=== PATIENT | male | born 1985 | race African-American/Black ===

== ENCOUNTER 2016-10-22 15:44 | Emergency (ER) | payer MEDICAID ==
[2016-10-22 15:57] VITALS: BP 139/95
[2016-10-22] MEDS ORDERED: IPRATROPIUM/ALBUTEROL 0.5-2.5 MG/3 ML AMPUL NEB ONE (16:25)
[2016-10-22] MEDS ORDERED: PREDNISONE 20 MG TABLET PO ONE (16:25)
[2016-10-22] MEDS ORDERED: ALBUTEROL SULFATE 0.083% NEB 2.5 MG/3 ML AMPUL NEB ONE (16:25)
--- NOTE | 2016-10-22 16:26 | ER Document Report ---
ED Medical Screen (RME) - General Stated Complaint: TOOTH PAIN Time seen by provider: 16:22 Mode of Arrival: Ambulatory Information source: Patient Notes: 31-year-old male with a history of asthma/COPD started wheezing 2 nights ago. His pump was not working. Has a nebulizer but no medicine for it. No fever. Inspiratory and expiratory wheezing bilaterally. Pulse ox is 94% in triage. Also complaining of right lower toothache. I have greeted and performed a rapid initial assessment of this patient. A comprehensive ED assessment, evaluation of the patient, analysis of test results , and completion of the medical decision making process will be conducted by additional ED providers. TRAVEL OUTSIDE OF THE [place] IN LAST 30 DAYS: No - Related Data Allergies/Adverse Reactions: levofloxacin [From Levaquin] Allergy (Severe, Verified 04/10/13 17:43) Past Medical History - Past Medical History Cardiac Medical History: Denies: Hx Atrial Fibrillation, Hx Congestive Heart Failure, Hx Coronary Artery Disease, Hx DVT, Hx Heart Attack, Hx Hypercholesterolemia, Hx Hypertension, Hx Peripheral Vascular Disease, Hx Pulmonary Embolism, Hx Heart Murmur Pulmonary Medical History: Reports: Hx Asthma, Hx COPD Neurological Medical History: Denies: Hx Migraine, Hx Seizures Endocrine Medical History: Denies: Hx Diabetes Mellitus Type 1, Hx Diabetes Mellitus Type 2, Hx Hyperthyroidism, Hx Hypothyroidism Renal/ Medical History: Denies: Hx End Stage Renal Disease Malignancy Medical History: Denies Hx Bone Cancer, Denies Hx Brain Cancer, Denies Hx Colorectal Cancer, Denies Hx Leukemia, Denies Hx Liver Cancer, Denies Hx Lung Cancer, Denies Hx Lymphoma, Denies Hx Pancreatic Cancer, Denies Hx Renal (Kidney) Cancer, Denies Hx Skin Cancer GI Medical History: Denies: Hx Cirrhosis, Hx Crohn's Disease, Hx Diverticulitis , Hx Gastroesophageal Reflux Disease, Hx Hepatitis, Hx Hiatal Hernia, Hx Ulcerative Colitis Musculoskeltal Medical History: Denies Hx Arthritis, Denies Hx Fibromyalgia, Denies Hx Gout Skin Medical History: Denies Hx Eczema, Denies Hx Psoriasis Psychiatric Medical History: Reports: Hx Depression Traumatic Medical History: Denies: Hx Gunshot Wound, Hx Pneumothorax, Hx Traumatic Brain Injury Infectious Medical History: Denies: Hx C-Diff, Hx Hepatitis, Hx HIV, Hx MRSA, Hx VRE - Immunizations Hx Diphtheria, Pertussis, Tetanus Vaccination: Yes Physical Exam - Vital signs Vitals: Temp Pulse Resp BP Pulse Ox 98.5 F 83 14 139/95 H 94 10/22/16 15:55 10/22/16 15:55 10/22/16 15:55 10/22/16 15:55 10/22/16 15:55 Course - Vital Signs Vital signs: Temp Pulse Resp BP Pulse Ox 98.5 F 83 14 139/95 H 94 10/22/16 15:55 10/22/16 15:55 10/22/16 15:55 10/22/16 15:55 10/22/16 15:55
--- NOTE | 2016-10-22 18:05 | ER Document Report ---
ED General - General Chief Complaint: Asthma Exacerbation Stated Complaint: TOOTH PAIN Time seen by provider: 18:00 Mode of Arrival: Ambulatory Information source: Patient Notes: 21-year-old male with one-week history of worsening wheezing and occasional productive cough of asthma and says this feels similar says he has no medicines at home to use for currently. He also reports that he had a right lower tooth break off 3 days ago and is having pain in that area as well. He denies fever, chills, nausea, vomiting, earache, sore throat, chest pain, abdominal pain, or back pain. Physical Exam: General: Alert, appears well. HEENT: Normocephalic. Atraumatic. PERRLA. Extraocular movements intact. Oropharynx with moist mucous membranes. Multiple fractured teeth. Tooth in question is a molar and right lower jaw which is fractured off at the gumline. Appears to been recent bleeding and there is mild soft tissue swelling in the area. He has no Stridor or hoarseness or drooling. Neck: Supple. Non-tender. No adenopathy no nuchal rigidity Respiratory: No respiratory distress. Good aeration with faint wheezes bilaterally no accessory muscle use Cardiovascular: Regular rate and rhythm. Abdominal: Normal Inspection. Soft, non-tender. No distension. Normal Bowel Sounds. Back: Non-tender. No deformity or step off. Extremities: Moves all four extremities. Upper extremities: Normal inspection. Non-tender. Normal color. Normal ROM. Normal temperature. Lower extremities: Normal inspection. Non-tender. No edema. Normal color. Normal ROM. Normal temperature. Neurological: Speech clear mentation normal Psychological: Normal affect. Normal Mood. Skin: Warm. Dry. Normal color. TRAVEL OUTSIDE OF THE [place] IN LAST 30 DAYS: No - Related Data Allergies/Adverse Reactions: levofloxacin [From Levaquin] Allergy (Severe, Verified 04/10/13 17:43) Past Medical History - General Information source: Patient - Social History Smoking Status: Never Smoker Family History: COPD Patient has suicidal ideation: No Patient has homicidal ideation: No - Past Medical History Cardiac Medical History: Denies: Hx Atrial Fibrillation, Hx Congestive Heart Failure, Hx Coronary Artery Disease, Hx DVT, Hx Heart Attack, Hx Hypercholesterolemia, Hx Hypertension, Hx Peripheral Vascular Disease, Hx Pulmonary Embolism, Hx Heart Murmur Pulmonary Medical History: Reports: Hx Asthma, Hx COPD Neurological Medical History: Denies: Hx Migraine, Hx Seizures Endocrine Medical History: Denies: Hx Diabetes Mellitus Type 1, Hx Diabetes Mellitus Type 2, Hx Hyperthyroidism, Hx Hypothyroidism Renal/ Medical History: Denies: Hx End Stage Renal Disease, Hx Peritoneal Dialysis Malignancy Medical History: Denies Hx Bone Cancer, Denies Hx Brain Cancer, Denies Hx Colorectal Cancer, Denies Hx Leukemia, Denies Hx Liver Cancer, Denies Hx Lung Cancer, Denies Hx Lymphoma, Denies Hx Pancreatic Cancer, Denies Hx Renal (Kidney) Cancer, Denies Hx Skin Cancer GI Medical History: Denies: Hx Cirrhosis, Hx Crohn's Disease, Hx Diverticulitis , Hx Gastroesophageal Reflux Disease, Hx Hepatitis, Hx Hiatal Hernia, Hx Ulcerative Colitis Musculoskeltal Medical History: Denies Hx Arthritis, Denies Hx Fibromyalgia, Denies Hx Gout Skin Medical History: Denies Hx Eczema, Denies Hx Psoriasis Psychiatric Medical History: Reports: Hx Depression Traumatic Medical History: Denies: Hx Gunshot Wound, Hx Pneumothorax, Hx Traumatic Brain Injury Infectious Medical History: Denies: Hx C-Diff, Hx Hepatitis, Hx HIV, Hx MRSA, Hx VRE - Immunizations Hx Diphtheria, Pertussis, Tetanus Vaccination: Yes Review of Systems - Review of Systems Constitutional: denies: Chills, Fever EENT: denies: Ear pain, Throat pain Cardiovascular: denies: Chest pain Respiratory: Cough, Wheezing Gastrointestinal: denies: Abdominal pain, Nausea, Vomiting Genitourinary: denies: Burning, Dysuria Musculoskeletal: denies: Back pain Skin: denies: Rash Neurological/Psychological: denies: Weakness, Numbness Physical Exam - Vital signs Vitals: Temp Pulse Resp BP Pulse Ox 98.5 F 83 14 139/95 H 94 10/22/16 15:55 10/22/16 15:55 10/22/16 15:55 10/22/16 15:55 10/22/16 15:55 Course - Re-evaluation Re-evalutation: 10/22/16 18:03 Patient reports improved aeration after nebulizer treatments. We discharged with prescription for albuterol inhaler and steroid Dosepak. He reports he does have local urgent care to follow-up with. Patient we prescribe antibiotics and pain medication for fractured tooth instructed follow with local dentist as soon as possible - Vital Signs Vital signs: Temp Pulse Resp BP Pulse Ox 98.5 F 83 14 139/95 H 94 10/22/16 15:55 10/22/16 15:55 10/22/16 15:55 10/22/16 15:55 10/22/16 15:55 Discharge - Discharge Clinical Impression: Toothache Acute asthma exacerbation Qualifiers: Asthma severity: unspecified severity Qualified Code(s): J45.901 - Unspecified asthma with (acute) exacerbation Condition: Stable Disposition: HOME, SELF-CARE Instructions: Asthma ([facility]), Toothache ([facility]) Prescriptions: Albuterol Sulfate [Proair HFA Inhalation Aerosol 8.5 gm MDI] 2 puff IH Q4H PRN # 1 mdi PRN Reason: Amoxicillin 1 tab PO TID #30 tab Methylprednisolone [Medrol Dosepack (4 mg/Tab) 21 Tab/Dosepak] 4 mg PO ASDIR PRN #21 tab.ds.pk PRN Reason: Tramadol HCl 50 mg PO BID #20 tablet Referrals: [facility] [Provider Group] - Follow up in 1 week [facility] [Provider Group] - Follow up in 1 week
== END 2016-10-22 18:19 | disposition home or self-care (01) ==
LOC: ER 15:44
DX: J45.901 Unspecified asthma with (acute) exacerbation (principal); K08.89 Other specified disorders of teeth and supporting structures; R05 Cough; J44.9 Chronic obstructive pulmonary disease, unspecified
CPT/HCPCS: 94640 ×2; 99282; J7512; J7620

== ENCOUNTER 2016-12-03 19:46 | Emergency (ER) | payer MEDICAID ==
[2016-12-03] MEDS ORDERED: NORMAL SALINE 1000 ML 1,000 ML IV PRN (19:49)
[2016-12-03] MEDS ORDERED: METHYLPREDNISOLONE INJ 125 MG/2 ML SDV IV ONE (19:49)
[2016-12-03] MEDS ORDERED: ALBUTEROL SULFATE 0.083% NEB 2.5 MG/3 ML AMPUL NEB ONE (19:49)
[2016-12-03] MEDS ORDERED: IPRATROPIUM/ALBUTEROL 0.5-2.5 MG/3 ML AMPUL NEB ONE (19:49)
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
[2016-12-03] MEDS ORDERED: ONDANSETRON HCL INJ/PF 4 MG/2 ML SDV IV ONE ×2 (19:51→23:06)
[2016-12-03 20:07] LABS: ABSOLUTE BASOPHILS # (AUTO) 0.1 10^3/uL (0.0-0.2); ABSOLUTE EOSINOPHILS # (AUTO) 0.1 10^3/uL (0.0-0.6); ABSOLUTE LYMPHOCYTES (AUTO) 1.9 10^3/uL (0.5-4.7); ABSOLUTE MONOCYTES (AUTO) 0.5 10^3/uL (0.1-1.4); ABSOLUTE NEUT (AUTO) 3.7 10^3/uL (1.7-8.2); BASOPHILS % (AUTO) 0.8 % (0-2); EOSINOPHILS % (AUTO) 1.5 % (0-6); HEMATOCRIT 44.2 % (37.9-51.0); HEMOGLOBIN 15.1 g/dL (13.5-17.0); HGB HCT DIFFERENCE 1.1; LYMPHOCYTES % (AUTO) 30.1 % (13-45); MEAN CORPUSCULAR HGB CONC 34.2 g/dL (32.0-36.0); MEAN CORPUSCULAR VOLUME 105 fl (80-97); MONOCYTES % (AUTO) 8.4 % (3-13); RED BLOOD COUNT 4.21 10^6/uL (4.35-5.55); RED CELL DISTRIBUTION WIDTH 13.9 % (11.5-14.0); SEGMENTED NEUTROPHILS % (AUTO) 59.2 % (42-78); WHITE BLOOD COUNT 6.2 10^3/uL (4.0-10.5)
[2016-12-03 20:20] LABS: ALANINE AMINOTRANSFERASE 32 U/L (21-72); ALBUMIN 4.5 g/dL (3.5-5.0); ALKALINE PHOSPHATASE 47 U/L (38-126); ANION GAP 14 (5-19); ASPARTATE AMINO TRANSFERASE 59 U/L (17-59); BILIRUBIN,DIRECT 0.1 mg/dL (0.0-0.4); BLOOD UREA NITROGEN 13 mg/dL (7-20); CALCIUM 9.1 mg/dL (8.4-10.2); CARBON DIOXIDE 29 mmol/L (22-30); CHLORIDE 107 mmol/L (98-107); CREATININE RESULT 1.14 mg/dL (0.52-1.25); GLUCOSE 91 mg/dL (75-110); POTASSIUM 3.5 mmol/L (3.6-5.0); SODIUM 149.9 mmol/L (137-145); TOTAL PROTEIN 7.8 g/dL (6.3-8.2)
[2016-12-03 20:39] LABS: ALCOHOL 493 mg/dL (NONE DETECTED)
[2016-12-03] MEDS ORDERED: DIPH/PERTUSS(ACELL)/TETANUS VAC/PF 0.5 ML SYR (>=10YO) IM ONE (23:07)
--- NOTE | 2016-12-04 00:15 | EKG REPORT ---
SEVERITY:- BORDERLINE ECG - SINUS RHYTHM PROBABLE LEFT ATRIAL ABNORMALITY ST ELEV, PROBABLE NORMAL EARLY REPOL PATTERN : Confirmed by: Alexa Molina 04-Dec-2016 00:15:12
[2016-12-04 01:48] LABS: APPEARANCE,URINE CLEAR; BILIRUBIN,URINE NEGATIVE (NEGATIVE); GLUCOSE, URINE NEGATIVE (NEGATIVE); KETONES,URINE NEGATIVE (NEGATIVE); LEUKOCYTE ESTERASE,URINE NEGATIVE (NEGATIVE); NITRITE,URINE NEGATIVE (NEGATIVE); PROTEIN,URINE NEGATIVE (NEGATIVE); URINE SPECIFIC GRAVITY 1.005; UROBILINOGEN,URINE NEGATIVE mg/dL (<2.0)
[2016-12-04 02:12] LABS: URINE BARBITURATES SCREEN NEGATIVE; URINE METHADONE SCREEN NEGATIVE; URINE OPIATES LOW NEGATIVE; URINE PHENCYCLIDINE SCREEN NEGATIVE
[2016-12-04 02:31] VITALS: BP 120/77
== END 2016-12-04 04:41 | disposition home or self-care (01) ==
LOC: ER 19:46
DX: J44.1 Chronic obstructive pulmonary disease with (acute) exacerbation (principal); S09.90XA Unspecified injury of head, initial encounter; S00.83XA Contusion of other part of head, initial encounter; F10.129 Alcohol abuse with intoxication, unspecified; R11.2 Nausea with vomiting, unspecified; Y04.2XXA Assault by strike against or bumped into by another person, initial encounter; Y92.009 Unspecified place in unspecified non-institutional (private) residence as the place of occurrence of the external cause; Z23 Encounter for immunization
CPT/HCPCS: 93005; 99285; 90471; 96374; 96375; 36415; 80307 ×2; 85025; 80053; 81001; 71010; 70450; 72125; 90715; 93010; J2930; J2405; J7620

== ENCOUNTER 2017-01-19 02:37 | Emergency (ER) | payer MEDICAID ==
[2017-01-19 02:58] VITALS: BP 141/90
[2017-01-19] MEDS ORDERED: IPRATROPIUM/ALBUTEROL 0.5-2.5 MG/3 ML AMPUL NEB ONE ×2 (03:08→06:03)
--- NOTE | 2017-01-19 03:08 | ER Document Report ---
ED General - General Chief Complaint: Shortness Of Breath Stated Complaint: DIFFICULITY BREATHING Time Seen by Provider: 01/19/17 03:02 Mode of Arrival: Stretcher Information source: Patient, Friend TRAVEL OUTSIDE OF THE [place] IN LAST 30 DAYS: No - HPI Notes: Patient is a 31-year-old with long-standing history of asthma/COPD comes in with report of a four-day history of cough congestion and worsening wheezing that was not responding to his home albuterol metered dose inhaler use. The patient has a childhood history of asthma and he quit smoking 3-4 years ago. The patient has been trialed on some additional inhalers recently, but is only currently on albuterol metered-dose inhaler in this time. Patient denies any chest pain or abdominal pain or neck stiffness. He reports no fever or chills. He states cough is largely nonproductive. En route by EMS, the patient had O2 sat of 92% and was given a DuoNeb and 125 mg of IV Solu-Medrol. - Related Data Allergies/Adverse Reactions: levofloxacin [From Levaquin] Allergy (Severe, Verified 04/10/13 17:43) Past Medical History - General Information source: Patient - Social History Smoking Status: Former Smoker Frequency of alcohol use: Occasional Drug Abuse: None Lives with: Friend Family History: COPD - Past Medical History Cardiac Medical History: Denies: Hx Atrial Fibrillation, Hx Congestive Heart Failure, Hx Coronary Artery Disease, Hx DVT, Hx Heart Attack, Hx Hypercholesterolemia, Hx Hypertension, Hx Peripheral Vascular Disease, Hx Pulmonary Embolism, Hx Heart Murmur Pulmonary Medical History: Reports: Hx Asthma, Hx COPD Neurological Medical History: Denies: Hx Migraine, Hx Seizures Endocrine Medical History: Denies: Hx Diabetes Mellitus Type 1, Hx Diabetes Mellitus Type 2, Hx Hyperthyroidism, Hx Hypothyroidism Renal/ Medical History: Denies: Hx End Stage Renal Disease, Hx Peritoneal Dialysis Malignancy Medical History: Denies Hx Bone Cancer, Denies Hx Brain Cancer, Denies Hx Colorectal Cancer, Denies Hx Leukemia, Denies Hx Liver Cancer, Denies Hx Lung Cancer, Denies Hx Lymphoma, Denies Hx Pancreatic Cancer, Denies Hx Renal (Kidney) Cancer, Denies Hx Skin Cancer GI Medical History: Denies: Hx Cirrhosis, Hx Crohn's Disease, Hx Diverticulitis , Hx Gastroesophageal Reflux Disease, Hx Hepatitis, Hx Hiatal Hernia, Hx Ulcerative Colitis Musculoskeltal Medical History: Denies Hx Arthritis, Denies Hx Fibromyalgia, Denies Hx Gout Skin Medical History: Denies Hx Eczema, Denies Hx Psoriasis Psychiatric Medical History: Reports: Hx Depression Traumatic Medical History: Denies: Hx Gunshot Wound, Hx Pneumothorax, Hx Traumatic Brain Injury Infectious Medical History: Denies: Hx C-Diff, Hx Hepatitis, Hx HIV, Hx MRSA, Hx VRE - Immunizations Hx Diphtheria, Pertussis, Tetanus Vaccination: Yes Review of Systems - Review of Systems Notes: REVIEW OF SYSTEMS: CONSTITUTIONAL : Denies fever, chills, or sweats. Denies recent illness. EENT: Denies eye, ear, throat, or mouth pain or symptoms. Denies nasal or sinus congestion or discharge. Denies throat, tongue, or mouth swelling or difficulty swallowing. CARDIOVASCULAR: Denies chest pain. Denies palpitations or racing or irregular heart beat. Denies ankle edema. RESPIRATORY: See history of present illness GASTROINTESTINAL: Denies abdominal pain or distention. Denies nausea, vomiting , or diarrhea. Denies blood in vomitus, stools, or per rectum. Denies black, tarry stools. Denies constipation. History of chronic inguinal hernias, status post repair on the right. Denies any pain over the areas. GENITOURINARY: Denies difficulty urinating, painful urination, burning, frequency, blood in urine, or discharge. MUSCULOSKELETAL: Denies back or neck pain or stiffness. Denies joint pain or swelling. SKIN: Denies rash, lesions or sores. HEMATOLOGIC : Denies easy bruising or bleeding. LYMPHATIC: Denies swollen, enlarged glands. NEUROLOGICAL: Denies confusion or altered mental status. Denies passing out or loss of consciousness. Denies dizziness or lightheadedness. Denies headache. Denies weakness or paralysis or loss of use of either side. Denies problems with gait or speech. Denies sensory loss, numbness, or tingling. Denies seizures. PSYCHIATRIC: Denies anxiety or stress. Denies depression, suicidal ideation, or homicidal ideation. ALL OTHER SYSTEMS REVIEWED AND NEGATIVE. Dictation was performed using L2C recognition software Physical Exam - Vital signs Vitals: Resp Pulse Ox 23 H 95 01/19/17 02:44 01/19/17 02:44 - Notes Notes: PHYSICAL EXAMINATION: GENERAL: Well-appearing, well-nourished and in no acute distress. Obvious smell of alcohol. HEAD: Atraumatic, normocephalic. EYES: Pupils equal round and reactive to light, extraocular movements intact, sclera anicteric, conjunctiva are normal. ENT: Nares patent, oropharynx clear without exudates. Moist mucous membranes. NECK: Normal range of motion, supple without lymphadenopathy LUNGS: Breath sounds equal bilaterally, with anterior wheezing and minimal accessory muscle use and retractions. HEART: Regular rate and rhythm without murmurs ABDOMEN: Soft, nontender, nondistended abdomen. No guarding, no rebound. No masses appreciated. Musculoskeletal: Normal range of motion, no pitting or edema. No cyanosis. Negative Homans. No palpable cord. NEUROLOGICAL: Cranial nerves grossly intact. Normal speech, normal gait. Normal sensory, motor exams PSYCH: Normal mood, normal affect. SKIN: Warm, Dry, normal turgor, no rashes or lesions noted. Course - Re-evaluation Re-evalutation: 01/19/17 03:08 Patient had already received IV Solu-Medrol. Patient was placed on supplemental oxygen 2 L. Patient was given additional DuoNeb treatment. - Vital Signs Vital signs: Temp Pulse Resp BP Pulse Ox 110 H 20 141/90 H 88 L 01/19/17 03:33 01/19/17 06:20 01/19/17 02:53 01/19/17 06:20 - Laboratory Result Diagrams: 01/19/17 03:28 01/19/17 03:28 Laboratory results interpreted by me: 01/19/17 01/19/17 03:28 03:28 MCV 104 H MCH 36.3 H Seg Neutrophils % 38.7 L Eosinophils % 8.4 H Basophils % 2.3 H Absolute Neutrophils 1.6 L Sodium 147.2 H Chloride 109 H Carbon Dioxide 20 L Magnesium 2.4 H Discharge - Discharge Clinical Impression: Asthma with acute exacerbation Qualifiers: Asthma severity: moderate persistent Qualified Code(s): J45.41 - Moderate persistent asthma with (acute) exacerbation Alcohol intoxication Qualifiers: Complication of substance-induced condition: with unspecified complication Qualified Code(s): F10.929 - Alcohol use, unspecified with intoxication, unspecified Condition: Stable Disposition: HOME, SELF-CARE Instructions: Asthma ([facility]), Acute Alcohol Intoxication ([facility]) Prescriptions: Albuterol Sulfate [Ventolin Hfa 8 gm Mdi (1 Mdi/ER Disp)] 2 puff IH ASDIR PRN # 1 inhaler PRN Reason: Ipratropium/Albuterol Sulfate [Duoneb 3 ml Ampul] 3 ml NEB [id number] #60 vial.neb Nebulizer [Nebulizer Machine] 1 each MC ASDIR PRN #1 kit PRN Reason: Prednisone [Deltasone 10 mg Tablet] 10 mg PO ASDIR PRN #21 tablet PRN Reason: Forms: Return to Work Referrals: BRYAN VALDIVIA MD [Primary Care Provider] - Follow up as needed
[2017-01-19 03:42] LABS: ABSOLUTE BASOPHILS # (AUTO) 0.1 10^3/uL (0.0-0.2); ABSOLUTE EOSINOPHILS # (AUTO) 0.3 10^3/uL (0.0-0.6); ABSOLUTE LYMPHOCYTES (AUTO) 1.8 10^3/uL (0.5-4.7); ABSOLUTE MONOCYTES (AUTO) 0.3 10^3/uL (0.1-1.4); ABSOLUTE NEUT (AUTO) 1.6 10^3/uL (1.7-8.2); BASOPHILS % (AUTO) 2.3 % (0-2); EOSINOPHILS % (AUTO) 8.4 % (0-6); HEMATOCRIT 45.6 % (37.9-51.0); HEMOGLOBIN 15.9 g/dL (13.5-17.0); HGB HCT DIFFERENCE 2.1; LYMPHOCYTES % (AUTO) 43.4 % (13-45); MEAN CORPUSCULAR HEMOGLOBIN 36.3 pg (27.0-33.4); MEAN CORPUSCULAR HGB CONC 34.8 g/dL (32.0-36.0); MEAN CORPUSCULAR VOLUME 104 fl (80-97); MONOCYTES % (AUTO) 7.2 % (3-13); RED BLOOD COUNT 4.37 10^6/uL (4.35-5.55); RED CELL DISTRIBUTION WIDTH 13.5 % (11.5-14.0); SEGMENTED NEUTROPHILS % (AUTO) 38.7 % (42-78); WHITE BLOOD COUNT 4.2 10^3/uL (4.0-10.5)
[2017-01-19 04:47] LABS: ALANINE AMINOTRANSFERASE 40 U/L (21-72); ALBUMIN 4.8 g/dL (3.5-5.0); ALCOHOL 282 mg/dL (NONE DETECTED); ALKALINE PHOSPHATASE 48 U/L (38-126); ASPARTATE AMINO TRANSFERASE 36 U/L (17-59); BILIRUBIN,DIRECT 0.3 mg/dL (0.0-0.4); BILIRUBIN,TOTAL 0.4 mg/dL (0.2-1.3); BLOOD UREA NITROGEN 13 mg/dL (7-20); CALCIUM 9.8 mg/dL (8.4-10.2); CHLORIDE 109 mmol/L (98-107); CREATININE RESULT 0.99 mg/dL (0.52-1.25); GLUCOSE 90 mg/dL (75-110); MAGNESIUM 2.4 mg/dL (1.6-2.3); POTASSIUM 4.5 mmol/L (3.6-5.0); TOTAL PROTEIN 7.8 g/dL (6.3-8.2)
[2017-01-19 04:56] LABS: ANION GAP 18 (5-19); CARBON DIOXIDE 20 mmol/L (22-30); SODIUM 147.2 mmol/L (137-145)
[2017-01-19] MEDS ORDERED: ALBUTEROL SULFATE HFA (90 MCG/PUFF) 8 GM MDI (1 MDI/ER DISP) IH PRN (06:03)
== END 2017-01-19 06:55 | disposition home or self-care (01) ==
LOC: ER 02:37
DX: J45.41 Moderate persistent asthma with (acute) exacerbation (principal); F10.929 Alcohol use, unspecified with intoxication, unspecified; R06.02 Shortness of breath; R05 Cough; R09.81 Nasal congestion; R06.2 Wheezing; Z87.891 Personal history of nicotine dependence
CPT/HCPCS: 94640 ×2; 99285; 36415; 80307; 83735; 85025; 80053; 71010; J3490; J7620

== ENCOUNTER 2017-02-20 21:52 | Emergency (ER) | payer MEDICAID ==
[2017-02-20] MEDS ORDERED: METHYLPREDNISOLONE INJ 125 MG/2 ML SDV IV ONE (22:02)
[2017-02-20] MEDS ORDERED: IPRATROPIUM/ALBUTEROL 0.5-2.5 MG/3 ML AMPUL NEB ONE ×3 (22:02→22:25)
[2017-02-20] MEDS: ALBUTEROL SULFATE 0.083% NEB 2.5 MG/3 ML AMPUL NEB SCH (22:12)
[2017-02-20] MEDS ORDERED: NORMAL SALINE 1000 ML 1,000 ML IV ONE (22:25)
[2017-02-20] MEDS ORDERED: MAGNESIUM SULFATE/D5W 100 ML IV PRN (22:25)
--- NOTE | 2017-02-20 22:25 | RADIOLOGY REPORT (SQ) ---
EXAM DESCRIPTION: CHEST SINGLE VIEW COMPLETED DATE/TIME: 02/20/2017 10:11 pm REASON FOR STUDY: difficulty breathing COMPARISON: 01/19/2017 EXAM PARAMETERS: NUMBER OF VIEWS: One view. TECHNIQUE: Single frontal radiographic view of the chest acquired. RADIATION DOSE: NA LIMITATIONS: None. FINDINGS: LUNGS AND PLEURA: No opacities, masses or pneumothorax. No pleural effusion. MEDIASTINUM AND HILAR STRUCTURES: No masses. Contour normal. HEART AND VASCULAR STRUCTURES: Heart normal in size. Normal vasculature. BONES: No acute findings. HARDWARE: None in the chest. OTHER: No other significant finding. IMPRESSION: NO ACUTE RADIOGRAPHIC FINDING IN THE CHEST. TECHNICAL DOCUMENTATION: JOB ID: [id number]
--- NOTE | 2017-02-20 22:29 | ER Document Report ---
ED Respiratory Problem - General Chief Complaint: Shortness Of Breath Stated Complaint: SHORTNESS OF BREATH Time Seen by Provider: 02/20/17 22:21 Notes: Patient is a 32-year-old male with both asthma and COPD that comes emergency department for chief complaint of respiratory distress with shortness of breath and wheezing. Patient states he suddenly worsened at night, he tried using his nebulizer at home but it was not working so he came to the emergency department. He denies fever, injury, cough, vomiting, or other symptoms. Patient no longer smokes cigarettes, occasionally smokes marijuana, his significant other does smoke. He has been admitted to the hospital and also intubated in the past for asthma exacerbations. TRAVEL OUTSIDE OF THE [place] IN LAST 30 DAYS: No - Related Data Allergies/Adverse Reactions: levofloxacin [From Levaquin] Allergy (Severe, Verified 04/10/13 17:43) Past Medical History - General Information source: Patient - Social History Smoking Status: Former Smoker Frequency of alcohol use: None Drug Abuse: None Lives with: Family Family History: COPD Patient has suicidal ideation: No Patient has homicidal ideation: No - Past Medical History Cardiac Medical History: Denies: Hx Atrial Fibrillation, Hx Congestive Heart Failure, Hx Coronary Artery Disease, Hx DVT, Hx Heart Attack, Hx Hypercholesterolemia, Hx Hypertension, Hx Peripheral Vascular Disease, Hx Pulmonary Embolism, Hx Heart Murmur Pulmonary Medical History: Reports: Hx Asthma, Hx COPD Neurological Medical History: Denies: Hx Migraine, Hx Seizures Endocrine Medical History: Denies: Hx Diabetes Mellitus Type 1, Hx Diabetes Mellitus Type 2, Hx Hyperthyroidism, Hx Hypothyroidism Renal/ Medical History: Denies: Hx End Stage Renal Disease, Hx Peritoneal Dialysis Malignancy Medical History: Denies Hx Bone Cancer, Denies Hx Brain Cancer, Denies Hx Colorectal Cancer, Denies Hx Leukemia, Denies Hx Liver Cancer, Denies Hx Lung Cancer, Denies Hx Lymphoma, Denies Hx Pancreatic Cancer, Denies Hx Renal (Kidney) Cancer, Denies Hx Skin Cancer GI Medical History: Denies: Hx Cirrhosis, Hx Crohn's Disease, Hx Diverticulitis , Hx Gastroesophageal Reflux Disease, Hx Hepatitis, Hx Hiatal Hernia, Hx Ulcerative Colitis Musculoskeltal Medical History: Denies Hx Arthritis, Denies Hx Fibromyalgia, Denies Hx Gout Skin Medical History: Denies Hx Eczema, Denies Hx Psoriasis Psychiatric Medical History: Reports: Hx Depression Traumatic Medical History: Denies: Hx Gunshot Wound, Hx Pneumothorax, Hx Traumatic Brain Injury Infectious Medical History: Denies: Hx C-Diff, Hx Hepatitis, Hx HIV, Hx MRSA, Hx VRE - Immunizations Hx Diphtheria, Pertussis, Tetanus Vaccination: Yes Review of Systems - Review of Systems Constitutional: No symptoms reported EENT: No symptoms reported Cardiovascular: No symptoms reported Respiratory: See HPI Gastrointestinal: No symptoms reported Genitourinary: No symptoms reported Male Genitourinary: No symptoms reported Musculoskeletal: No symptoms reported Skin: No symptoms reported Hematologic/Lymphatic: No symptoms reported Neurological/Psychological: No symptoms reported Physical Exam - Vital signs Vitals: Temp Pulse Resp BP Pulse Ox 98.2 F 111 H 22 H 150/96 H 90 L 02/20/17 21:57 02/20/17 21:57 02/20/17 21:57 02/20/17 21:57 02/20/17 21:57 Interpretation: Normal - General General appearance: Alert, Anxious In distress: Mild - HEENT Head: Normocephalic, Atraumatic Eyes: Normal Pupils: PERRL - Respiratory Respiratory status: Respiratory distress, Labored, Tachypnea Chest status: Nontender Breath sounds: Decreased air movement, Wheezing Chest palpation: Normal - Cardiovascular Rhythm: Regular, Tachycardia Heart sounds: Normal auscultation, S1 appreciated, S2 appreciated Murmur: No - Abdominal Inspection: Normal Distension: No distension Bowel sounds: Normal Tenderness: Nontender Organomegaly: No organomegaly - Back Back: Normal, Nontender - Extremities General upper extremity: Normal inspection, Nontender, Normal color, Normal ROM , Normal temperature General lower extremity: Normal inspection, Nontender, Normal color, Normal ROM , Normal temperature, Normal weight bearing. No: Shahzad's sign - Neurological Neuro grossly intact: Yes Cognition: Normal Orientation: AAOx4 [place] Coma Scale Eye Opening: Spontaneous Chadd Coma Scale Verbal: Oriented [place] Coma Scale Motor: Obeys Commands Chadd Coma Scale Total: 15 Speech: Normal Motor strength normal: LUE, RUE, LLE, RLE Sensory: Normal - Skin Skin Temperature: Warm Skin Moisture: Dry Skin Color: Normal Course - Re-evaluation Re-evalutation: Patient with mild tachypnea, slightly labored breathing, very tight lung hicks with wheezes throughout, oxygen level at 93% on 2 L nc. Initiating treatments, will monitor closely. Tachypnea and labored breathing resolved, moving air much better, still getting treatments. CXR is normal. After magnesium and all treatments completed, patient sitting up, eating chips, smiling, states he feels much improved. He still has some minimal wheezing present and on room air his oxygen is 94%. Patient stating he feels much better and he is considering going home. Did convince him to allow us to attempt to ambulate him with pulse ox, he perform this and he actually averaged at 94-95% on room air without any labored breathing or difficulty. Patient requesting to go home. Because of patient's history patient was premedicated with his first dose of prednisone, patient was given strict return precautions, patient states understanding and agreement. - Vital Signs Vital signs: Temp Pulse Resp BP Pulse Ox 98.2 F 111 H 16 135/98 H 91 L 02/20/17 21:57 02/20/17 21:57 02/21/17 02:01 02/21/17 02:01 02/21/17 02:01 Discharge - Discharge Clinical Impression: Wheezing, Asthma exacerbation, COPD exacerbation Condition: Stable Disposition: HOME, SELF-CARE Additional Instructions: Continue regular DuoNeb treatments. Take the prednisone as prescribed to completion. Follow-up with primary care. Return immediately if you worsen in any way. Prescriptions: Albuterol Sulfate [Proair HFA Inhalation Aerosol 8.5 gm MDI] 2 puff IH Q4H PRN # 1 mdi PRN Reason: Prednisone 20 mg PO DAILY #15 tablet Referrals: BENITA THOMPSON PA-C [Primary Care Provider] - Follow up as needed
[2017-02-21 02:12] VITALS: BP 135/98
[2017-02-21] MEDS ORDERED: PREDNISONE 20 MG TABLET PO ONE (02:15)
[2017-02-21] MEDS ORDERED: ALBUTEROL SULFATE HFA (90 MCG/PUFF) 8 GM MDI (1 MDI/ER DISP) IH ONE (02:26)
== END 2017-02-21 02:29 | disposition home or self-care (01) ==
LOC: ER 21:52
DX: J45.901 Unspecified asthma with (acute) exacerbation (principal); J44.1 Chronic obstructive pulmonary disease with (acute) exacerbation; R06.02 Shortness of breath; Z87.891 Personal history of nicotine dependence
CPT/HCPCS: 94640 ×2; 99284; 96361; 96375; 96365; 71010; J2930; J3475; J7512; J7030; J3490; J7620

== ENCOUNTER 2017-04-17 03:30 | Inpatient (IN) | payer MEDICAID ==
[2017-04-17] MEDS ORDERED: IPRATROPIUM/ALBUTEROL 0.5-2.5 MG/3 ML AMPUL NEB ONE (03:38)
[2017-04-17] MEDS ORDERED: ALBUTEROL SULFATE 0.083% NEB 2.5 MG/3 ML AMPUL NEB ONE ×2 (03:38→07:23)
[2017-04-17 03:46] LABS: ABSOLUTE BASOPHILS # (AUTO) 0.1 10^3/uL (0.0-0.2); ABSOLUTE EOSINOPHILS # (AUTO) 0.2 10^3/uL (0.0-0.6); ABSOLUTE LYMPHOCYTES (AUTO) 2.7 10^3/uL (0.5-4.7); ABSOLUTE MONOCYTES (AUTO) 0.7 10^3/uL (0.1-1.4); ABSOLUTE NEUT (AUTO) 5.6 10^3/uL (1.7-8.2); BASOPHILS % (AUTO) 1.2 % (0-2); EOSINOPHILS % (AUTO) 2.5 % (0-6); HEMATOCRIT 45.9 % (37.9-51.0); HEMOGLOBIN 16.1 g/dL (13.5-17.0); HGB HCT DIFFERENCE 2.4; LYMPHOCYTES % (AUTO) 29.1 % (13-45); MEAN CORPUSCULAR HEMOGLOBIN 36.7 pg (27.0-33.4); MEAN CORPUSCULAR VOLUME 105 fl (80-97); RED BLOOD COUNT 4.38 10^6/uL (4.35-5.55); RED CELL DISTRIBUTION WIDTH 13.7 % (11.5-14.0); SEGMENTED NEUTROPHILS % (AUTO) 60.2 % (42-78); WHITE BLOOD COUNT 9.4 10^3/uL (4.0-10.5)
[2017-04-17 04:00] LABS: ALCOHOL 259 mg/dL (NONE DETECTED); ANION GAP 14 (5-19); BLOOD UREA NITROGEN 9 mg/dL (7-20); CALCIUM 8.5 mg/dL (8.4-10.2); CARBON DIOXIDE 21 mmol/L (22-30); CHLORIDE 109 mmol/L (98-107); CREATININE RESULT 1.05 mg/dL (0.52-1.25); GLUCOSE 90 mg/dL (75-110); POTASSIUM 4.2 mmol/L (3.6-5.0); SODIUM 143.8 mmol/L (137-145)
--- NOTE | 2017-04-17 04:36 | ER Document Report ---
ED General - General TRAVEL OUTSIDE OF THE [place] IN LAST 30 DAYS: No <CRAIG VEE - Last Filed: 04/17/17 05:00> <MADI ANDUJAR - Last Filed: 04/17/17 07:28> - General Chief Complaint: Shortness Of Breath Stated Complaint: BREATHING DIFFICULTY Time Seen by Provider: 04/17/17 03:38 Notes: Patient is a 32-year-old male who presents with complaint of difficulty breathing. He has a history of asthma and COPD. He does smoke. Has been intubated the past for his asthma. Started having difficulty breathing tonight. He denies alcohol abuse but his admits that he has been drinking alcohol. He denies marijuana use however he has been seen here frequently for the same symptoms and is always positive for marijuana. Denies any fevers. No vomiting. No diarrhea. No chest pain. Paramedics were called. They gave him Solu-Medrol, 2 g of magnesium, and to do the breathing treatments. He was hypoxic in the low 80s when they arrived. (CRAIG VEE) - Related Data Allergies/Adverse Reactions: levofloxacin [From Levaquin] Allergy (Severe, Verified 04/10/13 17:43) Past Medical History - Social History Smoking Status: Former Smoker Frequency of alcohol use: Occasional Drug Abuse: None Family History: COPD - Past Medical History Cardiac Medical History: Denies: Hx Atrial Fibrillation, Hx Congestive Heart Failure, Hx Coronary Artery Disease, Hx DVT, Hx Heart Attack, Hx Hypercholesterolemia, Hx Hypertension, Hx Peripheral Vascular Disease, Hx Pulmonary Embolism, Hx Heart Murmur Pulmonary Medical History: Reports: Hx Asthma, Hx COPD Neurological Medical History: Denies: Hx Migraine, Hx Seizures Endocrine Medical History: Denies: Hx Diabetes Mellitus Type 1, Hx Diabetes Mellitus Type 2, Hx Hyperthyroidism, Hx Hypothyroidism Renal/ Medical History: Denies: Hx End Stage Renal Disease, Hx Peritoneal Dialysis Malignancy Medical History: Denies Hx Bone Cancer, Denies Hx Brain Cancer, Denies Hx Colorectal Cancer, Denies Hx Leukemia, Denies Hx Liver Cancer, Denies Hx Lung Cancer, Denies Hx Lymphoma, Denies Hx Pancreatic Cancer, Denies Hx Renal (Kidney) Cancer, Denies Hx Skin Cancer GI Medical History: Denies: Hx Cirrhosis, Hx Crohn's Disease, Hx Diverticulitis , Hx Gastroesophageal Reflux Disease, Hx Hepatitis, Hx Hiatal Hernia, Hx Ulcerative Colitis Musculoskeltal Medical History: Denies Hx Arthritis, Denies Hx Fibromyalgia, Denies Hx Gout Skin Medical History: Denies Hx Eczema, Denies Hx Psoriasis Psychiatric Medical History: Reports: Hx Depression Traumatic Medical History: Denies: Hx Gunshot Wound, Hx Pneumothorax, Hx Traumatic Brain Injury Infectious Medical History: Denies: Hx C-Diff, Hx Hepatitis, Hx HIV, Hx MRSA, Hx VRE - Immunizations Hx Diphtheria, Pertussis, Tetanus Vaccination: Yes <CRAIG VEE - Last Filed: 04/17/17 05:00> Review of Systems <CRAIG VEE - Last Filed: 04/17/17 05:00> <MADI ANDUJAR - Last Filed: 04/17/17 07:28> - Review of Systems Notes: My Normal Review Basic REVIEW OF SYSTEMS: CONSTITUTIONAL : Denies fever, chills, or sweats. Denies recent illness. EENT: Denies eye, ear, throat, or mouth pain or symptoms. Denies nasal or sinus congestion. CARDIOVASCULAR: Denies chest pain. RESPIRATORY: difficulty breathing. GASTROINTESTINAL: Denies abdominal pain. Denies nausea, vomiting, or diarrhea. MUSCULOSKELETAL: Denies neck or back pain or joint pain or swelling. SKIN: Denies rash or skin lesions. NEUROLOGICAL: Denies altered mental status or loss of consciousness. Denies headache. Denies weakness or paralysis or loss of use of either side. Denies problems with gait or speech. Denies sensory or motor loss. ALL OTHER SYSTEMS REVIEWED AND NEGATIVE. (CRAIG VEE) Physical Exam <CRAIG VEE - Last Filed: 04/17/17 05:00> <MADI ANDUJAR - Last Filed: 04/17/17 07:28> - Vital signs Vitals: Resp BP Pulse Ox 25 H 139/93 H 100 04/17/17 03:34 04/17/17 03:34 04/17/17 03:34 - Notes Notes: General Appearance: Well nourished, alert, cooperative, moderate to severe acute distress, no obvious discomfort. Vitals: reviewed, See vital signs table. Head: no swelling or tenderness to the head Eyes: PERRL, EOMI, Conjuctiva clear Mouth: No decreasd moisture Throat: No tonsillar inflammation, No airway obstruction, No lymphadenopathy Neck: Supple, no neck tenderness, Lungs: She is wheezing. Poor air exchange. Sensory muscle use. Heart: Tachycardic. Rate, Regular rythm, No murmur, no rub Abdomen: Normal BS, soft, No rigidity, No abdominal tenderness, No guarding, no rebound, no abdominal masses, no organomegaly Extremities: strength 5/5 in all extremities, good pulses in all extremities, no swelling or tenderness in the extremities, no edema. Skin: warm, dry, appropriate color, no rash Neuro: speech clear, oriented x 3, normal affect, responds appropriately to questions. (CRAIG VEE) Course - Laboratory Result Diagrams: 04/17/17 03:39 04/17/17 03:39 <CRAIG VEE - Last Filed: 04/17/17 05:00> - Laboratory Result Diagrams: 04/17/17 03:39 04/17/17 03:39 <MADI ANDUJAR - Last Filed: 04/17/17 07:28> - Re-evaluation Re-evalutation: 04/17/17 04:59 After receiving multiple breathing treatments being placed in the BiPAP patient' s lung auscultation still has wheezing but is much improved with better air exchange when he first arrived. His work of breathing has decreased significantly. Patient will be admitted. Currently the hospitalist is busy and cannot take any further admissions. Once there is an available hospitalist we will admit the patient. (CRAIG VEE) 04/17/17 07:27 Patient rechecked, still wheezing, oxygen saturation is 93% on room air off of BiPAP, patient was trialed off of BiPAP for 15 minutes, will be restarted on BiPAP based off of hypoxia, continued wheezing and still some accessory muscle use. Discussed with Dr. Sherman, he agrees to admit the patient to his service to the [facility] in inpatient status. (MADI ANDUJAR) - Vital Signs Vital signs: Temp Pulse Resp BP Pulse Ox 15 101/64 96 04/17/17 06:31 04/17/17 06:31 04/17/17 06:31 - Laboratory Laboratory results interpreted by me: 04/17/17 04/17/17 04/17/17 03:39 03:39 05:50 MCV 105 H MCH 36.7 H VBG pH 7.29 L VBG HCO3 16.6 L Chloride 109 H Carbon Dioxide 21 L - EKG Interpretation by Me Additional EKG results interpreted by me: 04/17/17 04:35 EKG is reviewed and interpreted by me. EKG shows normal sinus rhythm with a rate of [address] concave up [address] segment elevation consistent with early repolarization abnormality. He has exact same findings of his previous EKG from December 03, 2016. MT interval, QRS duration, QTc intervals are within normal range. (CRAIG VEE) Discharge <CRAIG VEE - Last Filed: 04/17/17 05:00> - Discharge Admitting Provider: [facility] Admitted: [facility] <MADI ANDUJAR - Last Filed: 04/17/17 07:28> - Discharge Clinical Impression: Asthma exacerbation Acute respiratory failure Qualifiers: Respiratory failure complication: hypoxia Qualified Code(s): J96.01 - Acute respiratory failure with hypoxia Condition: Serious Disposition: ADMITTED INPATIENT
--- NOTE | 2017-04-17 05:00 | RADIOLOGY REPORT (SQ) ---
EXAM DESCRIPTION: CHEST SINGLE VIEW COMPLETED DATE/TIME: 04/17/2017 4:33 am REASON FOR STUDY: difficulty breathing COMPARISON: 6.1417 05/26/2007. With EXAM PARAMETERS: NUMBER OF VIEWS: One view. TECHNIQUE: Single frontal radiographic view of the chest acquired. RADIATION DOSE: NA LIMITATIONS: None. FINDINGS: LUNGS AND PLEURA: No opacities, masses or pneumothorax. No pleural effusion. Moderate chr onic emphysematous hyperinflation. MEDIASTINUM AND HILAR STRUCTURES: No masses. Contour normal. HEART AND VASCULAR STRUCTURES: Heart normal in size. Normal vasculature. BONES: No acute findings. HARDWARE: None in the chest. OTHER: No other significant finding. IMPRESSION: NO ACUTE RADIOGRAPHIC FINDING IN THE CHEST. Moderate chronic emphysematous hyperinflati on. TECHNICAL DOCUMENTATION: JOB ID: [id number]
[2017-04-17 06:01] LABS: VENOUS BLOOD HCO3 16.6 mmol/L (20-32); VENOUS BLOOD PH 7.29 (7.30-7.42)
[2017-04-17] MEDS ORDERED: ALBUTEROL SULFATE 0.083% NEB 2.5 MG/3 ML AMPUL NEB PRN (07:42)
[2017-04-17] MEDS ORDERED: ONDANSETRON HCL INJ/PF 4 MG/2 ML SDV IV PRN (07:43)
[2017-04-17] MEDS ORDERED: LORAZEPAM INJ 2 MG/1 ML VIAL IV PRN (07:45)
[2017-04-17] MEDS ORDERED: METHYLPREDNISOLONE INJ 40 MG/1 ML SDV IV SCH (07:45)
[2017-04-17] MEDS ORDERED: METHYLPREDNISOLONE INJ 125 MG/2 ML SDV IV ONE (08:30)
--- NOTE | 2017-04-17 08:35 | PDOC H&P ---
History of Present Illness Admission Date/PCP: 04/17/17 07:43 Patient complains of: Shortness of breath History of Present Illness: DANIEL ONEILL is a 32 year old male with past medical history of asthma and ongoing tobacco abuse presents via EMS for shortness of breath. Patient does have history of prior intubation secondary to asthma attack. He also has history of alcohol abuse and currently presents intoxicated. I can glean little history from patient secondary to intoxication. Emergency medicine physician reports that patient was hypoxic on room air initially and responded to BiPAP. Past Medical History Cardiac Medical History: Denies: Atrial Fibrillation, Congestive Heart Failure, Coronary Artery Disease, DVT, Myocardial Infarction, Hyperlipidema, Hypertension, Peripheral Vascular Disease, Pulmonary Embolism, Heart Murmur Pulmonary Medical History: Reports: Asthma, Chronic Obstructive Pulmonary Disease (COPD) Neurological Medical History: Denies: Migraine, Seizures Endocrine Medical History: Denies: Diabetes Mellitus Type 1, Diabetes Mellitus Type 2, Hyperthyroidism, Hypothyroidism Renal/ Medical History: Denies: End Stage Renal Disease Malignancy Medical History: Denies: Bone Cancer, Brain Cancer, Breast Cancer, Cervical Cancer, Colorectal Cancer, Leukemia, Liver Cancer, Lung Cancer, Lymphoma, Ovarian Cancer , Pancreatic Cancer, Renal (Kidney) Cancer, Skin Cancer GI Medical History: Denies: Cirrhosis, Crohn's Disease, Diverticulitis, Gastroesophageal Reflux Disease, Hepatitis, Hiatal Hernia, Ulcerative Colitis Musculoskeltal Medical History: Denies: Arthritis, Fibromyalgia, Gout Skin Medical History: Denies: Eczema, Psoriasis Psychiatric Medical History: Reports: Depression Traumatic Medical History: Denies: Gunshot Wound, Pneumothorax, Traumatic Brain Injury Infectious Medical History: Denies: Clostridium Difficile, HIV, Methicillin-Resistant Staph Aureus, Vancomycin-Resistant Enterococci Past Surgical History Past Surgical History: Reports: Other - Hernia Social History Information Source: Patient, Emergency Med Personnel Lives with: Family Smoking Status: Former Smoker Frequency of Alcohol Use: Social Hx Recreational Drug Use: No Drugs: None Hx Prescription Drug Abuse: No - Advance Directive Resuscitation Status: Full Code Family History Family History: COPD Parental Family History Reviewed: Yes Children Family History Reviewed: Yes Sibling(s) Family History Reviewed.: Yes Medication/Allergy Home Medications: Ipratropium/Albuterol Sulfate [Combivent Inhaler] 1 puff IH Q4H #1 aer.w.adap Fluticasone Propionate [Flonase Nasal Barnum 50 Mcg/Barnum 16 gm] 2 spray NASL Q12 #1 spray.pump 04/27/16 Loratadine [Claritin 10 mg Tablet] 10 mg PO DAILY #30 tablet 04/27/16 Prednisone 10 mg PO DAILY #90 tablet 04/27/16 Albuterol Sulfate [Ventolin HFA MDI 18 GM] 1 - 2 puff IH Q4H PRN #1 mdi Budesonide/Formoterol Fumarate [Symbicort HFA 160-4.5 mcg Inhaler 6 gm] 2 puff IH Q12 #1 inhaler 05/26/16 Doxycycline Hyclate [Vibramycin 100 mg Tablet] 100 mg PO Q12 #10 tablet Fluticasone Propionate [Flonase Nasal Barnum 50 Mcg/Barnum 16 gm] 2 spray NASL Q12 #1 spray.pump 05/26/16 Loratadine [Claritin 10 mg Tablet] 10 mg PO QHS #30 tablet 05/26/16 Montelukast Sodium [Singulair 10 mg Tablet] 10 mg PO QHS #30 tablet 05/26/16 Prednisone [Deltasone 20 mg Tablet] 60 mg PO DAILY #32 tablet 05/26/16 Albuterol Sulfate [Proair HFA Inhalation Aerosol 8.5 gm MDI] 2 puff IH Q4H PRN # 1 mdi 10/22/16 Amoxicillin 1 tab PO TID #30 tab 10/22/16 Methylprednisolone [Medrol Dosepack (4 mg/Tab) 21 Tab/Dosepak] 4 mg PO ASDIR PRN #21 tab.ds.pk 10/22/16 Tramadol HCl 50 mg PO BID #20 tablet 10/22/16 Albuterol Sulfate [Ventolin Hfa 8 gm Mdi (1 Mdi/ER Disp)] 2 puff IH ASDIR PRN # 1 inhaler 01/19/17 Ipratropium/Albuterol Sulfate [Duoneb 3 ml Ampul] 3 ml [facility] #60 vial.neb 01/19/17 Nebulizer [Nebulizer Machine] 1 each ASDIR PRN #1 kit 01/19/17 Prednisone [Deltasone 10 mg Tablet] 10 mg PO ASDIR PRN #21 tablet 01/19/17 Albuterol Sulfate [Proair HFA Inhalation Aerosol 8.5 gm MDI] 2 puff IH Q4H PRN # 1 mdi 02/21/17 Prednisone 20 mg PO DAILY #15 tablet 02/21/17 Allergies/Adverse Reactions: levofloxacin [From Levaquin] Allergy (Severe, Verified 04/10/13 17:43) Review of Systems Constitutional: ABSENT: chills, fever(s), headache(s), weight gain, weight loss Eyes: ABSENT: visual disturbances Ears: ABSENT: hearing changes Cardiovascular: PRESENT: dyspnea on exertion. ABSENT: chest pain, edema, orthropnea, palpitations Respiratory: PRESENT: cough, dyspnea. ABSENT: hemoptysis Gastrointestinal: ABSENT: abdominal pain, constipation, diarrhea, hematemesis, hematochezia, nausea, vomiting Genitourinary: ABSENT: dysuria, hematuria Musculoskeletal: ABSENT: joint swelling Integumentary: ABSENT: rash, wounds Neurological: ABSENT: abnormal gait, abnormal speech, confusion, dizziness, focal weakness, syncope Psychiatric: ABSENT: anxiety, depression, homidical ideation, suicidal ideation Endocrine: ABSENT: cold intolerance, heat intolerance, polydipsia, polyuria Hematologic/Lymphatic: ABSENT: easy bleeding, easy bruising Physical Exam Vital Signs: Temp Pulse Resp BP Pulse Ox 16 107/74 96 04/17/17 08:01 04/17/17 08:01 04/17/17 08:01 Intake & Output 04/16/17 04/17/17 04/18/17 06:59 06:59 06:59 Weight 70.125 kg PHYSICAL EXAM: GENERAL: Intoxicated, on BiPAP, smells heavily of alcohol HEENT: Normocephalic, no scleral icterus, conjunctiva clear, EOEM intact, PERRLA , moist mucous membranes NECK: trachea midline, no thyromegally RESPIRATORY: Bilateral inspiratory/expiratory wheezes, diminished air excursion CARDIAC: Regular rate and rhythm, no murmur/chevy/rub ABDOMEN: Soft, no distension, no tenderness, no guarding, normal bowel sounds, negative Martinez sign RECTAL: deferred : deferred EXTREMITIES: No edema, cyanosis, clubbing MUSCULOSKELETAL: No joint swelling or deformity VASCULAR: normal peripheral pulses NEUROLOGIC: Intoxicated but arousable, oriented to person/place/time, normal speech, cranial nerves grossly intact, 5/5 strength in all extremities, tactile sensation intact in all extremities SKIN: No rash, no wounds, no worrisome skin lesions Results Laboratory Results: Labs- All tests 24 hr 04/17/17 04/17/17 04/17/17 03:39 03:39 05:50 WBC 9.4 RBC 4.38 Hgb 16.1 Hct 45.9 MCV 105 H MCH 36.7 H MCHC 35.0 RDW 13.7 Plt Count 259 Seg Neutrophils % 60.2 Lymphocytes % 29.1 Monocytes % 7.0 Eosinophils % 2.5 Basophils % 1.2 Absolute Neutrophils 5.6 Absolute Lymphocytes 2.7 Absolute Monocytes 0.7 Absolute Eosinophils 0.2 Absolute Basophils 0.1 VBG pH 7.29 L VBG pCO2 35.0 VBG HCO3 16.6 L VBG Base Excess -9.0 Sodium 143.8 Potassium 4.2 Chloride 109 H Carbon Dioxide 21 L Anion Gap 14 BUN 9 Creatinine 1.05 Est GFR ( Amer) > 60 Est GFR (Non-Af Amer) > 60 Glucose 90 Calcium 8.5 Serum Alcohol 259 Impressions: Chest X-Ray 04/17/17 03:39 IMPRESSION: NO ACUTE RADIOGRAPHIC FINDING IN THE CHEST. Moderate chronic emphysematous hyperinflation. Assessment & Plan - Diagnosis (1) Acute respiratory failure Qualifiers: Respiratory failure complication: hypoxia Qualified Code(s): J96.01 - Acute respiratory failure with hypoxia Is this a current diagnosis for this admission?: YesPlan: Continue BiPAP for now. Transition to nasal cannula oxygen once bronchospasm improved. (2) Asthma exacerbation Is this a current diagnosis for this admission?: YesPlan: Continue IV Solu-Medrol initiated in the emergency department. Scheduled and as needed albuterol nebulizer treatments. I will further discuss smoking cessation with patient once he is not intoxicated. (3) Alcohol abuse Is this a current diagnosis for this admission?: YesPlan: Monitor for signs of withdrawal. As needed Ativan. Thiamine. (4) Tobacco dependence Is this a current diagnosis for this admission?: Yes - Time Time Spent: Greater than 70 Minutes
[2017-04-17] MEDS: ALBUTEROL SULFATE 0.083% NEB 2.5 MG/3 ML AMPUL NEB SCH ×3 (08:45→20:12)
[2017-04-17 08:48] LABS: URINE BARBITURATES SCREEN NEGATIVE; URINE METHADONE SCREEN NEGATIVE; URINE OPIATES LOW NEGATIVE; URINE PHENCYCLIDINE SCREEN NEGATIVE
--- NOTE | 2017-04-17 10:50 | EKG REPORT ---
SEVERITY:- NORMAL ECG - SINUS RHYTHM ST ELEV, PROBABLE NORMAL EARLY REPOL PATTERN : Confirmed by: Alexa Molina 17-Apr-2017 10:48:50
[2017-04-17] MEDS: THIAMINE HCL 100 MG TABLET PO SCH (11:21)
[2017-04-17] MEDS: ACETAMINOPHEN 325 MG TABLET PO PRN (11:21)
[2017-04-17] MEDS: ENOXAPARIN SODIUM INJ 40 MG/0.4 ML DISP.SYRIN SUBCUT SCH (11:21)
--- NOTE | 2017-04-17 12:33 | RADIOLOGY REPORT (SQ) ---
EXAM DESCRIPTION: SHOULDER LEFT 2 OR MORE VIEWS COMPLETED DATE/TIME: 04/17/2017 12:21 pm REASON FOR STUDY: left shoulder pain, ? injury due to intoxication COMPARISON: None. NUMBER OF VIEWS: Three views. TECHNIQUE: Internal rotation, external rotation, and Y view images acquired of the left shoulder. LIMITATIONS: None. FINDINGS: MINERALIZATION: Normal. BONES: No acute fracture or dislocation. No worrisome bone lesions. JOINTS: No dislocation. VISUALIZED LUNGS AND RIBS: No pneumothorax. No rib fracture. SOFT TISSUES: No radiopaque foreign body. OTHER: No other significant finding. IMPRESSION: NEGATIVE STUDY OF THE LEFT SHOULDER. NO RADIOGRAPHIC EVIDENCE OF ACUTE INJURY. TECHNICAL DOCUMENTATION: JOB ID: [id number]- All Rights Reserved
[2017-04-17] MEDS: METHYLPREDNISOLONE INJ 125 MG/2 ML SDV IV SCH (17:13)
[2017-04-18] MEDS: METHYLPREDNISOLONE INJ 125 MG/2 ML SDV IV SCH ×2 (01:03→09:41)
[2017-04-18] MEDS: ACETAMINOPHEN 325 MG TABLET PO PRN (07:49)
[2017-04-18] MEDS: ALBUTEROL SULFATE 0.083% NEB 2.5 MG/3 ML AMPUL NEB SCH (08:47)
[2017-04-18] MEDS: THIAMINE HCL 100 MG TABLET PO SCH (09:41)
[2017-04-18] MEDS: ENOXAPARIN SODIUM INJ 40 MG/0.4 ML DISP.SYRIN SUBCUT SCH (09:41)
--- NOTE | 2017-04-18 10:49 | PDOC DISCHARGE SUMMARY ---
General - Admit/Disc Date/PCP Admission Date/Primary Care Provider: 04/17/17 07:43 Discharge Date: 04/18/17 - Discharge Diagnosis (1) Acute respiratory failure Is this a current diagnosis for this admission?: Yes (2) Asthma exacerbation Is this a current diagnosis for this admission?: Yes (3) Alcohol abuse Is this a current diagnosis for this admission?: Yes (4) Tobacco dependence Is this a current diagnosis for this admission?: Yes - Additional Information Resuscitation Status: Full Code Discharge Diet: Regular Discharge Activity: Activity As Tolerated Home Medications: Acetaminophen [Tylenol 325 mg Tablet] 650 mg PO Q4HP PRN tablet 04/18/17 Albuterol Sulfate [Proair HFA] 2 puff IH Q4HP PRN #1 [email or web address] 04/18/17 Fluticasone/Salmeterol [Advair 250-50 Diskus 28 dose] 1 inh IH Q12H #1 inhaler 04/18/17 Prednisone [Deltasone 10 mg Tablet] 10 mg PO ASDIR PRN #21 tablet 04/18/17 History of Present Illness Patient complains of: dyspnea History of Present Illness: DANIEL ONEILL is a 32 year old male with past medical history of asthma and ongoing tobacco abuse presents via EMS for shortness of breath. Patient does have history of prior intubation secondary to asthma attack. He also has history of alcohol abuse and currently presents intoxicated. I can glean little history from patient secondary to intoxication. Emergency medicine physician reports that patient was hypoxic on room air initially and responded to BiPAP. Hospital Course Hospital Course: Patient was admitted for acute hypoxemic respiratory failure secondary to asthma exacerbation. He was also intoxicated on admission with blood alcohol level of 259. He was positive for benzodiazepines and cocaine on drug screen. He was placed on IV Solu-Medrol and bronchodilators. He initially required oxygen and BiPAP but has weaned off of this. He is stable from a respiratory standpoint at time of discharge. We will discharge him on prednisone taper, Advair, albuterol. At time of discharge he is requesting that I write a letter to his compliance attorney stating that he cannot be involved in any type of "activity". I told him there is no reason that he cannot be active. If he needs further clarification he can discuss this with pulmonary medicine physician. He is referred to Dr. Alberto of pulmonary medicine upon his request. Physical Exam Vital Signs: Temp Pulse Resp BP Pulse Ox 97.9 F 62 14 130/71 H 99 04/18/17 07:45 04/18/17 08:47 04/18/17 08:47 04/18/17 07:45 04/18/17 08:47 Intake & Output 04/17/17 04/18/17 04/19/17 06:59 06:59 06:59 Intake Total 815 Balance 815 Weight 70.7 kg GENERAL: No acute distress HEENT: Conjunctiva clear, nonicteric, moist mucous membranes, no JVD, midline trachea RESPIRATORY: Faint expiratory wheezes, good air excursion CARDIAC: Regular rate and rhythm, no murmurs/gallops/rubs ABDOMEN: Soft, nondistended, nontender, positive bowel sounds, no rebound, no guarding EXTREMETIES: No edema, cyanosis, clubbing NEUROLOGIC: Alert, oriented to person/place/time, CN's grossly intact, no focal deficits SKIN: No rash, wounds PSYCH: Normal mood, normal affect Results Laboratory Results: Labs- Entire Visit 04/17/17 04/17/17 04/17/17 03:39 03:39 05:50 WBC 9.4 RBC 4.38 Hgb 16.1 Hct 45.9 MCV 105 H MCH 36.7 H MCHC 35.0 RDW 13.7 Plt Count 259 Seg Neutrophils % 60.2 Lymphocytes % 29.1 Monocytes % 7.0 Eosinophils % 2.5 Basophils % 1.2 Absolute Neutrophils 5.6 Absolute Lymphocytes 2.7 Absolute Monocytes 0.7 Absolute Eosinophils 0.2 Absolute Basophils 0.1 VBG pH 7.29 L VBG pCO2 35.0 VBG HCO3 16.6 L VBG Base Excess -9.0 Sodium 143.8 Potassium 4.2 Chloride 109 H Carbon Dioxide 21 L Anion Gap 14 BUN 9 Creatinine 1.05 Est GFR ( Amer) > 60 Est GFR (Non-Af Amer) > 60 Glucose 90 Calcium 8.5 Urine Opiates Screen Urine Methadone Screen Ur Barbiturates Screen Ur Phencyclidine Scrn Ur Amphetamines Screen U Benzodiazepines Scrn Urine Cocaine Screen U Marijuana (THC) Screen Serum Alcohol 259 04/17/17 08:15 WBC RBC Hgb Hct MCV MCH MCHC RDW Plt Count Seg Neutrophils % Lymphocytes % Monocytes % Eosinophils % Basophils % Absolute Neutrophils Absolute Lymphocytes Absolute Monocytes Absolute Eosinophils Absolute Basophils VBG pH VBG pCO2 VBG HCO3 VBG Base Excess Sodium Potassium Chloride Carbon Dioxide Anion Gap BUN Creatinine Est GFR ( Amer) Est GFR (Non-Af Amer) Glucose Calcium Urine Opiates Screen NEGATIVE Urine Methadone Screen NEGATIVE Ur Barbiturates Screen NEGATIVE Ur Phencyclidine Scrn NEGATIVE Ur Amphetamines Screen NEGATIVE U Benzodiazepines Scrn UNCONFIRMED POSITIVE Urine Cocaine Screen UNCONFIRMED POSITIVE U Marijuana (THC) Screen NEGATIVE Serum Alcohol Impressions: Shoulder X-Ray 04/17/17 00:00 IMPRESSION: NEGATIVE STUDY OF THE LEFT SHOULDER. NO RADIOGRAPHIC EVIDENCE OF ACUTE INJURY. Chest X-Ray 04/17/17 03:39 IMPRESSION: NO ACUTE RADIOGRAPHIC FINDING IN THE CHEST. Moderate chronic emphysematous hyperinflation. Qualifiers PATEINT BEING DISCHARGED WITH ANY OF THE FOLLOWING DIAGNOSIS?: No Plan Discharge Plan: Follow-up with Dr. Alberto of pulmonary medicine. Time Spent: Less than 30 Minutes
[2017-04-18 11:19] VITALS: BP 120/72
== END 2017-04-18 11:36 | disposition home or self-care (01) | DRG 189 ==
LOC: ER 03:30 → EH 07:34 → UNDOADMIN 07:34 → EH 07:43 → 3W 09:39
PROVIDERS: ADMIT Family Medicine; ATTEND Family Medicine
DX: J96.01 Acute respiratory failure with hypoxia (principal); J44.1 Chronic obstructive pulmonary disease with (acute) exacerbation; F17.210 Nicotine dependence, cigarettes, uncomplicated; Y90.8 Blood alcohol level of 240 mg/100 ml or more; F14.90 Cocaine use, unspecified, uncomplicated; F10.10 Alcohol abuse, uncomplicated; Z79.2 Long term (current) use of antibiotics; Z79.51 Long term (current) use of inhaled steroids; Z79.52 Long term (current) use of systemic steroids; Z79.899 Other long term (current) drug therapy
CPT/HCPCS: 36415; 71010; 80048; 80307; 82803; 85025; 93005; 93010; 94640; 94660; 99285; J1650; J2060; J2930; J3490; J7620

== ENCOUNTER 2017-07-04 21:32 | Emergency (ER) | payer MEDICAID ==
[2017-07-04] MEDS ORDERED: IPRATROPIUM/ALBUTEROL 0.5-2.5 MG/3 ML AMPUL NEB ONE ×3 (22:13→23:21)
[2017-07-04] MEDS ORDERED: PREDNISONE 20 MG TABLET PO ONE (22:23)
[2017-07-04] MEDS ORDERED: ALBUTEROL SULFATE 0.083% NEB 2.5 MG/3 ML AMPUL NEB ONE ×2 (22:23→23:21)
--- NOTE | 2017-07-04 22:27 | ER Document Report ---
ED General - General Chief Complaint: Asthma Exacerbation Stated Complaint: DIFFICULTY BREATHING Time Seen by Provider: 07/04/17 22:13 Mode of Arrival: Ambulatory Information source: Patient, [facility] Records Notes: 32-year-old male presents with history of asthma with concerns for asthma exacerbation. Patient has over the past few days he is been wheezing. Patient does note that he has had a clear productive cough. Denies any fevers or chills denies any nausea vomiting or diarrhea. Patient was recently admitted for asthma exacerbation 2 months ago which was last time he was on steroids denies a history of intubation TRAVEL OUTSIDE OF THE [place] IN LAST 30 DAYS: No - HPI Onset: Last week Onset/Duration: Persistent Quality of pain: No pain Severity: Mild Pain Level: Denies Associated symptoms: Productive cough, Shortness of breath Exacerbated by: Walking, Coughing Relieved by: Denies Similar symptoms previously: Yes Recently seen / treated by doctor: Yes - Related Data Allergies/Adverse Reactions: levofloxacin [From Levaquin] Allergy (Severe, Verified 04/10/13 17:43) Past Medical History - Social History Smoking Status: Former Smoker Cigarette use (# per day): No Chew tobacco use (# tins/day): No Smoking Education Provided: No Family History: COPD Patient has suicidal ideation: No Patient has homicidal ideation: No - Past Medical History Cardiac Medical History: Denies: Hx Atrial Fibrillation, Hx Congestive Heart Failure, Hx Coronary Artery Disease, Hx DVT, Hx Heart Attack, Hx Hypercholesterolemia, Hx Hypertension, Hx Peripheral Vascular Disease, Hx Pulmonary Embolism, Hx Heart Murmur Pulmonary Medical History: Reports: Hx Asthma, Hx COPD Neurological Medical History: Denies: Hx Migraine, Hx Seizures Endocrine Medical History: Denies: Hx Diabetes Mellitus Type 1, Hx Diabetes Mellitus Type 2, Hx Hyperthyroidism, Hx Hypothyroidism Renal/ Medical History: Denies: Hx End Stage Renal Disease, Hx Peritoneal Dialysis Malignancy Medical History: Denies Hx Bone Cancer, Denies Hx Brain Cancer, Denies Hx Colorectal Cancer, Denies Hx Leukemia, Denies Hx Liver Cancer, Denies Hx Lung Cancer, Denies Hx Lymphoma, Denies Hx Pancreatic Cancer, Denies Hx Renal (Kidney) Cancer, Denies Hx Skin Cancer GI Medical History: Denies: Hx Cirrhosis, Hx Crohn's Disease, Hx Diverticulitis , Hx Gastroesophageal Reflux Disease, Hx Hepatitis, Hx Hiatal Hernia, Hx Ulcerative Colitis Musculoskeltal Medical History: Denies Hx Arthritis, Denies Hx Fibromyalgia, Denies Hx Gout Skin Medical History: Denies Hx Eczema, Denies Hx Psoriasis Psychiatric Medical History: Reports: Hx Depression Traumatic Medical History: Denies: Hx Gunshot Wound, Hx Pneumothorax, Hx Traumatic Brain Injury Infectious Medical History: Denies: Hx C-Diff, Hx Hepatitis, Hx HIV, Hx MRSA, Hx VRE Past Surgical History: Reports: Other - Hernia - Immunizations Hx Diphtheria, Pertussis, Tetanus Vaccination: Yes Review of Systems - Review of Systems Notes: REVIEW OF SYSTEMS: CONSTITUTIONAL : Denies fever, chills, or sweats. Denies recent illness. EENT: Denies eye, ear, throat, or mouth pain or symptoms. Denies nasal or sinus congestion or discharge. Denies throat, tongue, or mouth swelling or difficulty swallowing. CARDIOVASCULAR: Denies chest pain. Denies palpitations or racing or irregular heart beat. Denies ankle edema. RESPIRATORY: Admits to cough wheezing productive GASTROINTESTINAL: Denies abdominal pain or distention. Denies nausea, vomiting , or diarrhea. Denies blood in vomitus, stools, or per rectum. Denies black, tarry stools. Denies constipation. GENITOURINARY: Denies difficulty urinating, painful urination, burning, frequency, blood in urine, or discharge. MUSCULOSKELETAL: Denies back or neck pain or stiffness. Denies joint pain or swelling. SKIN: Denies rash, lesions or sores. HEMATOLOGIC : Denies easy bruising or bleeding. LYMPHATIC: Denies swollen, enlarged glands. NEUROLOGICAL: Denies confusion or altered mental status. Denies passing out or loss of consciousness. Denies dizziness or lightheadedness. Denies headache. Denies weakness or paralysis or loss of use of either side. Denies problems with gait or speech. Denies sensory loss, numbness, or tingling. Denies seizures. PSYCHIATRIC: Denies anxiety or stress. Denies depression, suicidal ideation, or homicidal ideation. ALL OTHER SYSTEMS REVIEWED AND NEGATIVE. Dictation was performed using [employer] voice recognition software PHYSICAL EXAMINATION: GENERAL: Well-appearing, well-nourished and in no acute distress. HEAD: Atraumatic, normocephalic. EYES: Pupils equal round and reactive to light, extraocular movements intact, sclera anicteric, conjunctiva are normal. ENT: Nares patent, oropharynx clear without exudates. Moist mucous membranes. NECK: Normal range of motion, supple without lymphadenopathy LUNGS: Inspiratory expiratory wheezing noted all throughout worse on the right upper HEART: Regular rate and rhythm without murmurs ABDOMEN: Soft, nontender, nondistended abdomen. No guarding, no rebound. No masses appreciated. Musculoskeletal: Normal range of motion, no pitting or edema. No cyanosis. NEUROLOGICAL: Cranial nerves grossly intact. Normal speech, normal gait. Normal sensory, motor exams PSYCH: Normal mood, normal affect. SKIN: Warm, Dry, normal turgor, no rashes or lesions noted. Physical Exam - Vital signs Vitals: Temp Pulse Resp BP Pulse Ox 99 F 94 20 154/97 H 93 07/04/17 21:48 07/04/17 21:48 07/04/17 21:48 07/04/17 21:48 07/04/17 21:48 Course - Re-evaluation Re-evalutation: 07/04/17 22:27 Physical examination vital signs note mild asthma exacerbation, x-ray is pending to rule out any infiltrate, breathing treatments and steroids have been ordered as well patient will be placed on monitor and watch closely 07/04/17 23:21 Patient notes significant improvement of his breathing, I will give a few more breathing treatments as he is still having some wheezing 07/05/17 00:39 Chest x-ray noted no acute abnormality, after multiple breathing treatments patient is noted to be breathing comfortably, when I walked into the room he was sleeping and satting 91%, patient was awoken as to take some deep breaths and his O2 increased immediately to 97%, patient wishes to be discharged home, I will discharge him home with steroids and very close return precautions especially given his recent history of admission which appears to be related to alcohol abuse as well After performing a Medical Screening Examination, I estimate there is LOW risk for ACUTE CORONARY SYNDROME, RESPIRATORY FAILURE, SEPSIS OR MENINGITIS, thus I consider the discharge disposition reasonable. I have reevaluated this patient multiple times and no significant life threatening changes are noted. The patient and I have discussed the diagnosis and risks, and we agree with discharging home with close follow-up. We also discussed returning to the Emergency Department immediately if new or worsening symptoms occur. We have discussed the symptoms which are most concerning (e.g., changing or worsening pain, trouble swallowing or breathing, neck stiffness, fever) that necessitate immediate return. - Vital Signs Vital signs: Temp Pulse Resp BP Pulse Ox 99 F 94 20 154/97 H 93 07/04/17 21:48 07/04/17 21:48 07/04/17 21:48 07/04/17 21:48 07/04/17 21:48 - Diagnostic Test Radiology reviewed: Image reviewed, Reports reviewed - Hyperinflation of the lungs Discharge - Discharge Clinical Impression: Respiratory distress Asthma exacerbation Qualifiers: Asthma severity: moderate Asthma persistence: persistent Qualified Code(s): J45.41 - Moderate persistent asthma with (acute) exacerbation Condition: Stable Disposition: HOME, SELF-CARE Instructions: Asthma ([facility]) Additional Instructions: Follow up with your physician tomorrow for further care or return to the ED IMMEDIATELY if symptoms worsen or new concerns occur. If you cannot afford to follow up with your primary care physician a list of low cost clinics have been provided at the end of your discharge papers as well. Prescriptions: Prednisone [Deltasone 20 mg Tablet] 3 tab PO DAILY 5 Days tablet
--- NOTE | 2017-07-04 23:13 | RADIOLOGY REPORT (SQ) ---
EXAM DESCRIPTION: CHEST PA/LAT COMPLETED DATE/TIME: 07/04/2017 10:56 pm REASON FOR STUDY: asthma exacerbation productive cough COMPARISON: None. EXAM PARAMETERS: NUMBER OF VIEWS: two views TECHNIQUE: Digital Frontal and Lateral radiographic views of the chest acquired. RADIATION DOSE: NA LIMITATIONS: none FINDINGS: LUNGS AND PLEURA: No opacities, masses or pneumothorax. No pleural effusion. Moderate hyp erinflation. MEDIASTINUM AND HILAR STRUCTURES: No masses or contour abnormalities. HEART AND VASCULAR STRUCTURES: Heart normal size. No evidence for failure. BONES: No acute findings. HARDWARE: None in the chest. OTHER: No other significant finding. IMPRESSION: Hyperinflation. Otherwise, NO SIGNIFICANT RADIOGRAPHIC FINDING IN THE CHEST. TECHNICAL DOCUMENTATION: JOB ID: [id number] [employer]- All Rights Reserved
[2017-07-05 00:52] VITALS: BP 129/81
== END 2017-07-05 00:25 | disposition home or self-care (01) ==
LOC: ER 21:32
DX: J45.41 Moderate persistent asthma with (acute) exacerbation (principal); J44.9 Chronic obstructive pulmonary disease, unspecified; R05 Cough; R06.02 Shortness of breath; Z88.1 Allergy status to other antibiotic agents; Z87.891 Personal history of nicotine dependence
CPT/HCPCS: 94640 ×2; 99284; 71020; J7512; J7620

== ENCOUNTER 2017-07-30 23:03 | Observation (INO) | payer MEDICAID ==
[2017-07-31] MEDS ORDERED: IPRATROPIUM/ALBUTEROL 0.5-2.5 MG/3 ML AMPUL NEB ONE (00:21)
[2017-07-31] MEDS ORDERED: METHYLPREDNISOLONE INJ 125 MG/2 ML SDV IV ONE (00:21)
[2017-07-31] MEDS ORDERED: NORMAL SALINE 1000 ML 1,000 ML IV ONE ×2 (00:21→01:48)
--- NOTE | 2017-07-31 00:24 | ER Document Report ---
ED General - General Chief Complaint: Shortness Of Breath Stated Complaint: SHORTNESS OF BREATH Time Seen by Provider: 07/31/17 00:12 Notes: Patient is a 32-year-old male with a past medical history of asthma who presents with 3 days of progressively worsening shortness of breath. Patient states that he has been using and albuterol nebulizer at home as well as his Advair without any improvement of his symptoms. He states this feels similar to when he has had exacerbations of his asthma in the past but he states that usually it is not this severe. He has never required hospitalization or intubation for his asthma. No known sick contacts. He denies any fever or constitutional symptoms. He states any form of exertion at this point makes him completely out of breath. He has not seen his primary care doctor regarding today's concerns. TRAVEL OUTSIDE OF THE [place] IN LAST 30 DAYS: No - Related Data Allergies/Adverse Reactions: levofloxacin [From Levaquin] Allergy (Severe, Verified 04/10/13 17:43) Past Medical History - General Information source: Patient - Social History Smoking Status: Never Smoker Frequency of alcohol use: None Drug Abuse: None Lives with: Spouse/Significant other Family History: COPD - Past Medical History Cardiac Medical History: Denies: Hx Atrial Fibrillation, Hx Congestive Heart Failure, Hx Coronary Artery Disease, Hx DVT, Hx Heart Attack, Hx Hypercholesterolemia, Hx Hypertension, Hx Peripheral Vascular Disease, Hx Pulmonary Embolism, Hx Heart Murmur Pulmonary Medical History: Reports: Hx Asthma, Hx COPD Neurological Medical History: Denies: Hx Migraine, Hx Seizures Endocrine Medical History: Denies: Hx Diabetes Mellitus Type 1, Hx Diabetes Mellitus Type 2, Hx Hyperthyroidism, Hx Hypothyroidism Renal/ Medical History: Denies: Hx End Stage Renal Disease, Hx Peritoneal Dialysis Malignancy Medical History: Denies Hx Bone Cancer, Denies Hx Brain Cancer, Denies Hx Colorectal Cancer, Denies Hx Leukemia, Denies Hx Liver Cancer, Denies Hx Lung Cancer, Denies Hx Lymphoma, Denies Hx Pancreatic Cancer, Denies Hx Renal (Kidney) Cancer, Denies Hx Skin Cancer GI Medical History: Denies: Hx Cirrhosis, Hx Crohn's Disease, Hx Diverticulitis , Hx Gastroesophageal Reflux Disease, Hx Hepatitis, Hx Hiatal Hernia, Hx Ulcerative Colitis Musculoskeltal Medical History: Denies Hx Arthritis, Denies Hx Fibromyalgia, Denies Hx Gout Skin Medical History: Denies Hx Eczema, Denies Hx Psoriasis Psychiatric Medical History: Reports: Hx Depression Traumatic Medical History: Denies: Hx Gunshot Wound, Hx Pneumothorax, Hx Traumatic Brain Injury Infectious Medical History: Denies: Hx C-Diff, Hx Hepatitis, Hx HIV, Hx MRSA, Hx VRE Past Surgical History: Reports: Other - Hernia - Immunizations Hx Diphtheria, Pertussis, Tetanus Vaccination: Yes Review of Systems - Review of Systems Notes: Constitutional: Negative for fever. HENT: Negative for sore throat. Eyes: Negative for visual changes. Cardiovascular: Negative for chest pain. Respiratory: Positive for shortness of breath. Gastrointestinal: Negative for abdominal pain, vomiting or diarrhea. Genitourinary: Negative for dysuria. Musculoskeletal: Negative for back pain. Skin: Negative for rash. Neurological: Negative for headaches, weakness or numbness. 10 point ROS negative except as marked above and in HPI. Physical Exam - Vital signs Vitals: Temp Pulse Resp BP Pulse Ox 98.4 F 126 H 20 111/66 91 L 07/30/17 23:41 07/30/17 23:41 07/30/17 23:41 07/30/17 23:41 07/30/17 23:41 Interpretation: Tachycardic, Hypoxic Notes: PHYSICAL EXAMINATION: GENERAL: Moderate distress, appears uncomfortable HEAD: Atraumatic, normocephalic. EYES: Pupils equal round and reactive to light, extraocular movements intact, sclera anicteric, conjunctiva are normal. ENT: nares patent, oropharynx clear without exudates. Dry mucous membranes. NECK: Normal range of motion, supple without lymphadenopathy LUNGS: Very poor air movement throughout with diminished breath sounds particularly at the bases. There is a prolonged expiratory phase with a pronounced expiratory wheeze in all lung hicks. HEART: Regular tachycardia without murmurs ABDOMEN: Soft, nontender, normoactive bowel sounds. No guarding, no rebound. No masses appreciated. EXTREMITIES: Normal range of motion, no pitting or edema. No cyanosis. NEUROLOGICAL: No focal neurological deficits. Moves all extremities spontaneously and on command. PSYCH: Appears to be somewhat intoxicated SKIN: Warm, Dry, normal turgor, no rashes or lesions noted. Course - Re-evaluation Re-evalutation: 07/31/17 00:23 Patient presents with moderate respiratory distress, tachypneic with initial respiratory rates of 27, satting 90-91% on room air with associated tachycardia. Patient is extremely tight with diminished air movement all lung hicks with associated prolonged expiratory wheezing. Patient has a history of prior exacerbations similar to this in the past. An IV will be established, magnesium and Solu-Medrol will be administered. Continuous nebulizers have been initiated. Will also obtain basic labs, chest x-ray, and continue to watch closely. 07/31/17 01:20 Patient continues to be tight, magnesium infusion did need to be slowed down as patient did have a brief period of hypotension but was a symptomatic with this. He has been placed on additional continuous albuterol nebulizers at this time as he continues to be tachypneic and tight as well as requiring oxygen supplementation. 07/31/17 01:46 Patient's work of breathing has improved and he is no longer tachypneic or retracting. However he remains hypoxic on room air down to 89%. However given his ongoing oxygen dependency I do not believe it is safe for him to be discharged home and have requested admission. I discussed the case with Dr. Coulter who agreed to admit the patient. Patient likewise agrees to admission at this time. - Vital Signs Vital signs: Temp Pulse Resp BP Pulse Ox 98.4 F 126 H 18 101/64 91 L 07/30/17 23:41 07/30/17 23:41 07/31/17 02:31 07/31/17 02:31 07/31/17 02:31 - Laboratory Result Diagrams: 07/31/17 00:20 07/31/17 00:20 Laboratory results interpreted by me: 07/31/17 07/31/17 00:20 00:20 RBC 4.24 L MCV 104 H MCH 36.3 H Eosinophils % 11.6 H Sodium 149.2 H Chloride 109 H - Diagnostic Test Radiology reviewed: Image reviewed, Reports reviewed Radiology results interpreted by me: 07/31/17 01:40 Chest x-ray: No acute infiltrate or pneumothorax Critical Care Note - Critical Care Note Total time excluding time spent on procedures (mins): 36 Comments: Critical care time spent obtaining history from patient or surrogate, discussions with consultants, development of treatment plan with patient or surrogate, evaluation of patient's response to treatment, examination of patient , ordering and performing treatments and interventions, ordering and review of laboratory studies, re-evaluation of patient's condition, ordering and review of radiographic studies and review of old charts Discharge - Discharge Clinical Impression: Respiratory distress Asthma exacerbation Qualifiers: Asthma severity: moderate Asthma persistence: persistent Qualified Code(s): J45.41 - Moderate persistent asthma with (acute) exacerbation Acute respiratory failure Qualifiers: Respiratory failure complication: hypoxia Qualified Code(s): J96.01 - Acute respiratory failure with hypoxia Condition: Fair Disposition: ADMITTED OBSERVATION Admitting Provider: [place] [facility] Unit Admitted: Telemetry
[2017-07-31] MEDS: MAGNESIUM SULFATE/D5W 1 GM/100 ML RTUPB IV SCH ×2 (00:31→03:22)
[2017-07-31 00:37] LABS: ABSOLUTE BASOPHILS # (AUTO) 0.1 10^3/uL (0.0-0.2); ABSOLUTE EOSINOPHILS # (AUTO) 0.5 10^3/uL (0.0-0.6); ABSOLUTE LYMPHOCYTES (AUTO) 1.6 10^3/uL (0.5-4.7); ABSOLUTE MONOCYTES (AUTO) 0.3 10^3/uL (0.1-1.4); BASOPHILS % (AUTO) 1.5 % (0-2); EOSINOPHILS % (AUTO) 11.6 % (0-6); HEMATOCRIT 44.2 % (37.9-51.0); HEMOGLOBIN 15.4 g/dL (13.5-17.0); LYMPHOCYTES % (AUTO) 36.3 % (13-45); MEAN CORPUSCULAR HEMOGLOBIN 36.3 pg (27.0-33.4); MEAN CORPUSCULAR HGB CONC 34.9 g/dL (32.0-36.0); MEAN CORPUSCULAR VOLUME 104 fl (80-97); MONOCYTES % (AUTO) 6.5 % (3-13); PLATELET COUNT 303 10^3/uL (150-450); RED BLOOD COUNT 4.24 10^6/uL (4.35-5.55); RED CELL DISTRIBUTION WIDTH 13.7 % (11.5-14.0); SEGMENTED NEUTROPHILS % (AUTO) 44.1 % (42-78); TOTAL CELLS COUNTED % (AUTO) 100 %; WHITE BLOOD COUNT 4.4 10^3/uL (4.0-10.5)
[2017-07-31 00:38] LABS: VENOUS BLOOD BASE EXCESS -2.1 mmol/L; VENOUS BLOOD HCO3 22.7 mmol/L (20-32); VENOUS BLOOD PCO2 39.6 mmHg (35-63); VENOUS BLOOD PH 7.38 (7.30-7.42)
[2017-07-31 00:57] LABS: ANION GAP 18 (5-19); BLOOD UREA NITROGEN 9 mg/dL (7-20); CALCIUM 10.2 mg/dL (8.4-10.2); CARBON DIOXIDE 22 mmol/L (22-30); CHLORIDE 109 mmol/L (98-107); GLUCOSE 97 mg/dL (75-110); POTASSIUM 4.3 mmol/L (3.6-5.0); SODIUM 149.2 mmol/L (137-145)
[2017-07-31] MEDS ORDERED: ALBUTEROL SULFATE 0.083% NEB 2.5 MG/3 ML AMPUL NEB ONE (01:27)
--- NOTE | 2017-07-31 01:34 | RADIOLOGY REPORT (SQ) ---
EXAM DESCRIPTION: CHEST SINGLE VIEW COMPLETED DATE/TIME: 07/31/2017 1:10 am REASON FOR STUDY: sob COMPARISON: 01.19.17, 8.05.26 EXAM PARAMETERS: NUMBER OF VIEWS: One view. TECHNIQUE: Single frontal radiographic view of the chest acquired. RADIATION DOSE: NA LIMITATIONS: None. FINDINGS: LUNGS AND PLEURA: No opacities, masses or pneumothorax. No pleural effusion. Moderate delgado ntration and/or Bochdalek herniation of the left hemidiaphragm similar in appearance compared with pr ior exam, 01/19/2017. MEDIASTINUM AND HILAR STRUCTURES: No masses. Contour normal. HEART AND VASCULAR STRUCTURES: Heart normal in size. Normal vasculature. BONES: No acute findings. HARDWARE: None in the chest. OTHER: No other significant finding. IMPRESSION: NO ACUTE RADIOGRAPHIC FINDING IN THE CHEST. TECHNICAL DOCUMENTATION: JOB ID: [id number] [employer]- All Rights Reserved
[2017-07-31] MEDS ORDERED: ONDANSETRON HCL INJ/PF 4 MG/2 ML SDV IV PRN (01:43)
[2017-07-31] MEDS ORDERED: HYDRALAZINE HCL INJ/PF 20 MG/1 ML SDV IV PRN (01:43)
[2017-07-31] MEDS ORDERED: ACETAMINOPHEN 325 MG TABLET PO PRN (01:43)
[2017-07-31] MEDS ORDERED: CHLORPHENIRAMINE MALEATE 4 MG TABLET PO ONE (01:43)
[2017-07-31] MEDS: IPRATROPIUM/ALBUTEROL 0.5-2.5 MG/3 ML AMPUL NEB SCH ×2 (02:14→07:35)
[2017-07-31] MEDS ORDERED: FLUTICASONE NASAL SPRAY 50 MCG/SPRY 120 SPRAY/16 GM NASL ONE (02:15)
[2017-07-31] MEDS ORDERED: PREDNISONE 20 MG TABLET PO ONE (02:15)
[2017-07-31] MEDS ORDERED: THIAMINE HCL INJ 200 MG/2 ML VIAL IV PRN (02:18)
[2017-07-31] MEDS ORDERED: FOLIC ACID INJ 5 MG/1 ML 10 ML VIAL IV PRN (02:20)
[2017-07-31] MEDS ORDERED: THIAMINE HCL 100 MG, FOLIC ACID 1 MG in NORMAL SALINE 250 ML IV ONE (02:30)
[2017-07-31] MEDS ORDERED: CHLORPHENIRAMINE MALEATE 4 MG TABLET ONE (03:40)
[2017-07-31] MEDS ORDERED: FOLIC ACID INJ 5 MG/1 ML 10 ML VIAL ONE (03:40)
[2017-07-31] MEDS ORDERED: FLUTICASONE NASAL SPRAY 50 MCG/SPRY 120 SPRAY/16 GM ONE (03:40)
[2017-07-31] MEDS ORDERED: THIAMINE HCL INJ 200 MG/2 ML VIAL ONE (03:42)
--- NOTE | 2017-07-31 04:16 | PDOC H&P ---
History of Present Illness Admission Date/PCP: 07/31/17 02:00 Patient complains of: Asthma exacerbation History of Present Illness: DANIEL ONEILL is a 32 year old male with a past medical history of asthma, tobacco dependence, cocaine and marijuana use. He presents with uncontrolled shortness of breath, wheezes and paroxysms of nonproductive cough with speech. Patient denies rhinorrhea, sore throat or fever, he admits exposure to known triggers of cold weather, tobacco smoke and noncompliance with medication. Patient admits noncompliance with medication secondary to financial barriers. In the emergency room he is found to have global wheeze audible at bedside paroxysms of cough requiring IV Solu-Medrol, magnesium, BiPAP and continuous nebulizer of albuterol and Atrovent. He is referred to the hospitalist for admission Past Medical History Cardiac Medical History: Denies: Atrial Fibrillation, Congestive Heart Failure, Coronary Artery Disease, DVT, Myocardial Infarction, Hyperlipidema, Hypertension, Peripheral Vascular Disease, Pulmonary Embolism, Heart Murmur Pulmonary Medical History: Reports: Asthma, Bronchitis, Chronic Obstructive Pulmonary Disease (COPD) Neurological Medical History: Denies: Migraine, Seizures Endocrine Medical History: Denies: Diabetes Mellitus Type 1, Diabetes Mellitus Type 2, Hyperthyroidism, Hypothyroidism Renal/ Medical History: Denies: End Stage Renal Disease Malignancy Medical History: Denies: Bone Cancer, Brain Cancer, Breast Cancer, Cervical Cancer, Colorectal Cancer, Leukemia, Liver Cancer, Lung Cancer, Lymphoma, Ovarian Cancer , Pancreatic Cancer, Renal (Kidney) Cancer, Skin Cancer GI Medical History: Denies: Cirrhosis, Crohn's Disease, Diverticulitis, Gastroesophageal Reflux Disease, Hepatitis, Hiatal Hernia, Ulcerative Colitis Musculoskeltal Medical History: Denies: Arthritis, Fibromyalgia, Gout Skin Medical History: Denies: Eczema, Psoriasis Psychiatric Medical History: Reports: Depression, Substance Abuse, Tobacco Dependency Traumatic Medical History: Denies: Gunshot Wound, Pneumothorax, Traumatic Brain Injury Infectious Medical History: Denies: Clostridium Difficile, HIV, Methicillin-Resistant Staph Aureus, Vancomycin-Resistant Enterococci Past Surgical History Past Surgical History: Reports: Other - Hernia Social History Information Source: Patient Lives with: Spouse/Significant other Smoking Status: Current Some Day Smoker Frequency of Alcohol Use: Social Hx Recreational Drug Use: No Drugs: Cocaine, Marijuana Hx Prescription Drug Abuse: No - Advance Directive Resuscitation Status: Full Code Family History Family History: COPD Parental Family History Reviewed: Yes Children Family History Reviewed: Yes Sibling(s) Family History Reviewed.: Yes Medication/Allergy Home Medications: Acetaminophen [Tylenol 325 mg Tablet] 650 mg PO Q4HP PRN tablet 04/18/17 Albuterol Sulfate [Proair HFA] 2 puff IH Q4HP PRN #1 [email or web address] 04/18/17 Fluticasone/Salmeterol [Advair 250-50 Diskus 28 dose] 1 inh IH Q12H #1 inhaler 04/18/17 Prednisone [Deltasone 10 mg Tablet] 10 mg PO ASDIR PRN #21 tablet 04/18/17 Prednisone [Deltasone 20 mg Tablet] 3 tab PO DAILY 5 Days tablet 07/05/17 Allergies/Adverse Reactions: levofloxacin [From Levaquin] Allergy (Severe, Verified 04/10/13 17:43) Review of Systems Constitutional: ABSENT: chills, fever(s), headache(s), weight gain, weight loss Eyes: ABSENT: visual disturbances Ears: ABSENT: hearing changes Cardiovascular: ABSENT: chest pain, dyspnea on exertion, edema, orthropnea, palpitations Respiratory: ABSENT: cough, hemoptysis Gastrointestinal: ABSENT: abdominal pain, constipation, diarrhea, hematemesis, hematochezia, nausea, vomiting Genitourinary: ABSENT: dysuria, hematuria Musculoskeletal: ABSENT: joint swelling Integumentary: ABSENT: rash, wounds Neurological: ABSENT: abnormal gait, abnormal speech, confusion, dizziness, focal weakness, syncope Psychiatric: ABSENT: anxiety, depression, homidical ideation, suicidal ideation Endocrine: ABSENT: cold intolerance, heat intolerance, polydipsia, polyuria Hematologic/Lymphatic: ABSENT: easy bleeding, easy bruising Physical Exam Vital Signs: Temp Pulse Resp BP Pulse Ox 98.4 F 126 H 18 101/64 91 L 07/30/17 23:41 07/30/17 23:41 07/31/17 02:31 07/31/17 02:31 07/31/17 02:31 General appearance: PRESENT: cooperative, mild distress. ABSENT: morbidly obese Head exam: PRESENT: atraumatic, normocephalic Eye exam: PRESENT: conjunctiva pink, EOMI, PERRLA. ABSENT: scleral icterus Ear exam: PRESENT: normal external ear exam Mouth exam: PRESENT: moist, tongue midline Neck exam: ABSENT: carotid bruit, JVD, lymphadenopathy, thyromegaly Respiratory exam: PRESENT: accessory muscle use, decreased breath sounds, retraction, symmetrical, tachypnea, wheezes. ABSENT: rhonchi, stridor Cardiovascular exam: PRESENT: RRR. ABSENT: diastolic murmur, rubs, systolic murmur Pulses: PRESENT: normal dorsalis pedis pul Vascular exam: PRESENT: normal capillary refill GI/Abdominal exam: PRESENT: normal bowel sounds, soft. ABSENT: distended, guarding, mass, organolmegaly, rebound, tenderness Rectal exam: PRESENT: deferred Extremities exam: PRESENT: full ROM. ABSENT: calf tenderness, clubbing, pedal edema Neurological exam: PRESENT: alert, awake, oriented to person, oriented to place , oriented to time, oriented to situation, CN II-XII grossly intact. ABSENT: motor sensory deficit Psychiatric exam: PRESENT: appropriate affect, normal mood. ABSENT: homicidal ideation, suicidal ideation Skin exam: PRESENT: dry, intact, warm. ABSENT: cyanosis, rash Results Impressions: Chest X-Ray 07/31/17 00:22 IMPRESSION: NO ACUTE RADIOGRAPHIC FINDING IN THE CHEST. Assessment & Plan - Diagnosis (1) Acute respiratory failure Qualifiers: Respiratory failure complication: hypoxia Qualified Code(s): J96.01 - Acute respiratory failure with hypoxia Is this a current diagnosis for this admission?: Yes Plan: Secondary to COPD exacerbation, Flonase, Solu-Medrol, albuterol and Atrovent, flutter valve, and education (2) Asthma exacerbation Qualifiers: Asthma severity: moderate Asthma persistence: persistent Qualified Code(s ): J45.41 - Moderate persistent asthma with (acute) exacerbation Is this a current diagnosis for this admission?: Yes Plan: Albuterol, Atrovent, transition to prednisone and education for avoidance of triggers (3) Alcohol abuse Is this a current diagnosis for this admission?: Yes Plan: Thiamine and folate as needed benzodiazepine (4) Substance abuse Is this a current diagnosis for this admission?: Yes Plan: Symptomatic management avoid withdrawal (5) Tobacco dependence Is this a current diagnosis for this admission?: Yes Plan: Tobacco Dependence patient received tobacco cessation counseling and offered nicotine replacement options - Time Time Spent: 30 to 50 Minutes
[2017-07-31 05:11] LABS: URINE AMPHETAMINES SCREEN NEGATIVE; URINE BARBITURATES SCREEN NEGATIVE; URINE BENZODIAZEPINES SCREEN NEGATIVE; URINE COCAINE SCREEN NEGATIVE; URINE MARIJUANA (THC) SCREEN NEGATIVE; URINE METHADONE SCREEN NEGATIVE; URINE PHENCYCLIDINE SCREEN NEGATIVE
[2017-07-31] MEDS ORDERED: LANSOPRAZOLE 30 MG TAB.RAP.DR PO SCH (06:00)
[2017-07-31] MEDS ORDERED: HEPARIN SOD (PORCINE) 5,000 UNIT/ML 1 ML SYRINGE SUBCUT SCH (06:00)
[2017-07-31 07:49] VITALS: BP 122/73
[2017-07-31] MEDS ORDERED: FLUTICASONE NASAL SPRAY 50 MCG/SPRY 120 SPRAY/16 GM NASL SCH (10:00)
[2017-07-31] MEDS ORDERED: THIAMINE HCL 100 MG, FOLIC ACID 1 MG in NORMAL SALINE 250 ML IV SCH (10:00)
[2017-07-31] MEDS ORDERED: PREDNISONE 20 MG TABLET PO SCH (10:00)
--- NOTE | 2017-07-31 13:06 | PDOC DISCHARGE SUMMARY ---
General - Admit/Disc Date/PCP Admission Date/Primary Care Provider: 07/31/17 02:00 Discharge Date: 07/31/17 - Discharge Diagnosis (2) Tobacco dependence Is this a current diagnosis for this admission?: Yes (3) Substance abuse Is this a current diagnosis for this admission?: Yes (4) Alcohol abuse Is this a current diagnosis for this admission?: Yes - Additional Information Resuscitation Status: Full Code Discharge Diet: As Tolerated Discharge Activity: Activity As Tolerated, Other - NEED TO AVOID EXPOSURE TO STRONG ODORS, FUMES, AND/OR SMOKE Home Medications: Albuterol Sulfate [Proair HFA] 1 - 2 puff IH Q4 PRN #1 inhaler 07/31/17 Fluticasone/Salmeterol [Advair 250-50 Diskus 14 Dose/Diskus] 1 inh IH Q12 30 Days #1 inhaler 07/31/17 Inhaler, Assist Devices [Compact Space Chamber Plus] 1 each MC PRN PRN #1 spacer 07/31/17 Ipratropium/Albuterol Sulfate [Duoneb 3 ml Ampul] 3 ml NEB RTQ6HP PRN 30 Days # 120 vial.neb 07/31/17 Prednisone [Deltasone 20 mg Tablet] 40 mg PO DAILY #10 tablet 07/31/17 History of Present Illness History of Present Illness: DANIEL ONEILL is a 32 year old male with a self-reported history of COPD who presented with uncontrolled shortness of breath, wheezing, and a nonproductive cough. His symptoms began about 3 days prior to admission. He reports that his nebulizer treatment at home was not effective in relieving his symptoms. He did not report fever or constitutional symptoms. Hospital Course Hospital Course: He was admitted for a COPD exacerbation. He was started on IV steroids as well as ipratropium/albuterol nebs. He made significant recovery, to the point of requesting discharge. He did not require antibiotics. His chest x-ray showed no acute abnormalities. His hospital stay was uneventful. Physical Exam Vital Signs: Temp Pulse Resp BP Pulse Ox 97.8 F 96 16 122/73 92 07/31/17 07:49 07/31/17 07:49 07/31/17 07:49 07/31/17 07:49 07/31/17 07:49 Intake & Output 07/30/17 07/31/17 08/01/17 06:59 06:59 06:59 Weight 79.3 kg General appearance: PRESENT: no acute distress, well-developed, well-nourished Head exam: PRESENT: atraumatic, normocephalic Respiratory exam: PRESENT: clear to auscultation brandy. ABSENT: rales, rhonchi, wheezes Cardiovascular exam: PRESENT: RRR. ABSENT: diastolic murmur, rubs, systolic murmur GI/Abdominal exam: PRESENT: normal bowel sounds, soft. ABSENT: distended, guarding, mass, organolmegaly, rebound, tenderness Neurological exam: PRESENT: alert, awake, oriented to person, oriented to place , oriented to time, oriented to situation, CN II-XII grossly intact. ABSENT: motor sensory deficit Psychiatric exam: PRESENT: appropriate affect, normal mood. ABSENT: homicidal ideation, suicidal ideation Results Laboratory Results: Labs- All tests 24 hr 07/31/17 07/31/17 07/31/17 00:20 00:20 00:20 WBC 4.4 RBC 4.24 L Hgb 15.4 Hct 44.2 MCV 104 H MCH 36.3 H MCHC 34.9 RDW 13.7 Plt Count 303 Seg Neutrophils % 44.1 Lymphocytes % 36.3 Monocytes % 6.5 Eosinophils % 11.6 H Basophils % 1.5 Absolute Neutrophils 2.0 Absolute Lymphocytes 1.6 Absolute Monocytes 0.3 Absolute Eosinophils 0.5 Absolute Basophils 0.1 VBG pH 7.38 VBG pCO2 39.6 VBG HCO3 22.7 VBG Base Excess -2.1 Sodium 149.2 H Potassium 4.3 Chloride 109 H Carbon Dioxide 22 Anion Gap 18 BUN 9 Creatinine 0.87 Est GFR ( Amer) > 60 Est GFR (Non-Af Amer) > 60 Glucose 97 Calcium 10.2 NT-Pro-B Natriuret Pep Urine Opiates Screen Urine Methadone Screen Ur Barbiturates Screen Ur Phencyclidine Scrn Ur Amphetamines Screen U Benzodiazepines Scrn Urine Cocaine Screen U Marijuana (THC) Screen 07/31/17 07/31/17 00:20 04:26 WBC RBC Hgb Hct MCV MCH MCHC RDW Plt Count Seg Neutrophils % Lymphocytes % Monocytes % Eosinophils % Basophils % Absolute Neutrophils Absolute Lymphocytes Absolute Monocytes Absolute Eosinophils Absolute Basophils VBG pH VBG pCO2 VBG HCO3 VBG Base Excess Sodium Potassium Chloride Carbon Dioxide Anion Gap BUN Creatinine Est GFR ( Amer) Est GFR (Non-Af Amer) Glucose Calcium NT-Pro-B Natriuret Pep 60 Urine Opiates Screen NEGATIVE Urine Methadone Screen NEGATIVE Ur Barbiturates Screen NEGATIVE Ur Phencyclidine Scrn NEGATIVE Ur Amphetamines Screen NEGATIVE U Benzodiazepines Scrn NEGATIVE Urine Cocaine Screen NEGATIVE U Marijuana (THC) Screen NEGATIVE Impressions: Chest X-Ray 07/31/17 00:22 IMPRESSION: NO ACUTE RADIOGRAPHIC FINDING IN THE CHEST. Qualifiers PATEINT BEING DISCHARGED WITH ANY OF THE FOLLOWING DIAGNOSIS?: No Plan Discharge Plan: He will be discharged home. A prescription for a spacer for his albuterol inhaler was also provided along with his other medications. Time Spent: Less than 30 Minutes
[2017-08-01] MEDS ORDERED: THIAMINE HCL 100 MG, FOLIC ACID 1 MG in NORMAL SALINE 250 ML IV SCH (10:00)
== END 2017-07-31 13:35 | disposition home or self-care (01) ==
LOC: ER 23:03 → EH 07-31 02:00 → 5 07-31 02:50
PROVIDERS: ADMIT Internal Medicine; ATTEND Internal Medicine
PROC: 3E0F7GC Introduction of Other Therapeutic Substance into Respiratory Tract, Via Natural or Artificial Opening (ICD-10-PCS; principal; 2017-07-30)
DX: J44.1 Chronic obstructive pulmonary disease with (acute) exacerbation (principal); F17.200 Nicotine dependence, unspecified, uncomplicated; F19.10 Other psychoactive substance abuse, uncomplicated; F10.10 Alcohol abuse, uncomplicated; J96.01 Acute respiratory failure with hypoxia; J45.41 Moderate persistent asthma with (acute) exacerbation; R00.0 Tachycardia, unspecified; I95.2 Hypotension due to drugs; T47.4X5A Adverse effect of other laxatives, initial encounter; Y92.239 Unspecified place in hospital as the place of occurrence of the external cause; Z91.14 Patient's other noncompliance with medication regimen; Z82.5 Family history of asthma and other chronic lower respiratory diseases
CPT/HCPCS: 94640 ×4; 99285; 96375; 96365; 36415; 85025; 80048; 80307; 82803; 83880; 71010; G0378 ×2; J3490 ×2; J1644; J2930; J3475; J7512; J3411; J7030; J7620

== ENCOUNTER 2017-08-19 00:16 | Emergency (ER) | payer MEDICAID ==
[2017-08-19] MEDS ORDERED: IPRATROPIUM/ALBUTEROL 0.5-2.5 MG/3 ML AMPUL NEB ONE (00:45)
[2017-08-19] MEDS ORDERED: PREDNISONE 20 MG TABLET PO ONE (00:45)
--- NOTE | 2017-08-19 00:46 | ER Document Report ---
ED Respiratory Problem - General Chief Complaint: Shortness Of Breath Stated Complaint: TROUBLE BREATHING Time Seen by Provider: 08/19/17 00:37 Notes: Patient is a 32-year-old male with a past medical history significant for COPD and emphysema who presents emergency department complaining of shortness of breath. Patient states that he ran out of his albuterol inhaler and therefore presents tonight with 2 days of worsening shortness of breath. States that he does have Qvar at home. Was recently discharged from the hospital on July 31 for COPD exacerbation. TRAVEL OUTSIDE OF THE [place] IN LAST 30 DAYS: No - Related Data Allergies/Adverse Reactions: levofloxacin [From [employer]] Allergy (Severe, Verified 08/19/17 00:18) Past Medical History - Social History Smoking Status: Former Smoker Family History: COPD - Past Medical History Cardiac Medical History: Denies: Hx Atrial Fibrillation, Hx Congestive Heart Failure, Hx Coronary Artery Disease, Hx DVT, Hx Heart Attack, Hx Hypercholesterolemia, Hx Hypertension, Hx Peripheral Vascular Disease, Hx Pulmonary Embolism, Hx Heart Murmur Pulmonary Medical History: Reports: Hx Asthma, Hx Bronchitis, Hx COPD Neurological Medical History: Denies: Hx Migraine, Hx Seizures Endocrine Medical History: Denies: Hx Diabetes Mellitus Type 1, Hx Diabetes Mellitus Type 2, Hx Hyperthyroidism, Hx Hypothyroidism Renal/ Medical History: Denies: Hx End Stage Renal Disease, Hx Peritoneal Dialysis Malignancy Medical History: Denies Hx Bone Cancer, Denies Hx Brain Cancer, Denies Hx Colorectal Cancer, Denies Hx Leukemia, Denies Hx Liver Cancer, Denies Hx Lung Cancer, Denies Hx Lymphoma, Denies Hx Pancreatic Cancer, Denies Hx Renal (Kidney) Cancer, Denies Hx Skin Cancer GI Medical History: Denies: Hx Cirrhosis, Hx Crohn's Disease, Hx Diverticulitis , Hx Gastroesophageal Reflux Disease, Hx Hepatitis, Hx Hiatal Hernia, Hx Ulcerative Colitis Musculoskeltal Medical History: Denies Hx Arthritis, Denies Hx Fibromyalgia, Denies Hx Gout Skin Medical History: Denies Hx Eczema, Denies Hx Psoriasis Psychiatric Medical History: Reports: Hx Depression Traumatic Medical History: Denies: Hx Gunshot Wound, Hx Pneumothorax, Hx Traumatic Brain Injury Infectious Medical History: Denies: Hx C-Diff, Hx Hepatitis, Hx HIV, Hx MRSA, Hx VRE Past Surgical History: Reports: Other - Hernia - Immunizations Hx Diphtheria, Pertussis, Tetanus Vaccination: Yes Review of Systems - Review of Systems Constitutional: No symptoms reported Cardiovascular: No symptoms reported Respiratory: See HPI Gastrointestinal: No symptoms reported -: Yes All other systems reviewed and negative Physical Exam - Vital signs Vitals: Temp Pulse Resp BP Pulse Ox 98.7 F 102 H 20 125/63 94 08/19/17 00:26 08/19/17 00:26 08/19/17 00:26 08/19/17 00:26 08/19/17 00:26 - Notes Notes: PHYSICAL EXAM GENERAL: Alert, interacts well. NECK: Full range of motion. Supple. Trachea midline. LUNGS: diffuse expiratory wheezes noted bilaterally n bilaterally, no wheezes, rales, or rhonchi. No respiratory distress. HEART: Regular rate and rhythm. No murmurs, gallops, or rubs. EXTREMITIES: Moves all 4 extremities spontaneously. No edema, radial and dorsalis pedis pulses 2/4 bilaterally. No cyanosis. NEUROLOGICAL: Alert and oriented x4. Normal speech. PSYCH: Normal affect, normal mood. SKIN: Warm, dry, normal turgor. No rashes or lesions noted. Course - Re-evaluation Re-evalutation: 08/19/17 01:49 Patient is a 32-year-old male presents with acute COPD exacerbation. Patient states that he is improving with breathing treatments but still short of breath and mild tightness noted in his chest. 08/19/17 02:22 Again patient states that he feels he is improving after each breathing treatment. 08/19/17 03:15 Patient ambulated with a pulse ox maintaining of 94%. Staff states that as they were ambulating him he did seem to get short of breath with mild elevation in his heart rate to about 120 that was nonsustained with a pulse ox of approximately 92%. At this time will place an IV to give the patient magnesium which she has benefited from before. Also will send basic blood work 08/19/17 05:05 Patient significantly improved after magnesium satting 96% on room air able to ambulate without any shortness of breath or chest tightness. Lungs still with mild expiratory wheeze but given history of emphysema and current flare consistent with history. Will discharge patient home on steroids and continue to take rescue inhaler and Qvar as directed. Patient to follow-up with [facility] tomorrow. Low suspicion for PE given negative d-dimer and patient's presentation is consistent with his COPD. Troponin was also negative. - Vital Signs Vital signs: Temp Pulse Resp BP Pulse Ox 97.9 F 102 H 16 126/85 H 92 08/19/17 04:50 08/19/17 00:26 08/19/17 05:01 08/19/17 05:00 08/19/17 05:01 - Laboratory Result Diagrams: 08/19/17 03:10 08/19/17 03:10 Laboratory results interpreted by me: 08/19/17 08/19/17 03:10 03:10 RBC 4.21 L MCV 105 H MCH 35.7 H Carbon Dioxide 20 L - Diagnostic Test Radiology reviewed: Reports reviewed - EKG Interpretation by Me EKG shows normal: Sinus rhythm - There is evidence of nondescript ST elevations That are not consistent with STEMI, ST wave depression or pericarditis. are evident on previous EKG as well Rate: Normal When compared to previous EKG there are: No significant change Discharge - Discharge Clinical Impression: COPD exacerbation Condition: Stable Disposition: HOME, SELF-CARE Additional Instructions: NORMAL EXAM AND WORKUP: At this time, your examination and workup show no significant abnormality. No significant abnormal physical findings were noted. All laboratory, EKG, and imaging (x-ray, CT scans, ultrasound) studies that were ordered show no significant abnormality. Although your examination and all studies that were ordered showed no significant abnormal finding, there are no examinations and no studies that are 100% accurate. There is always the possibility that some abnormality could exist and not be detected with physical examination or within the limits and capabilities of laboratory and other studies. You should return or follow up as you were instructed on your visit today for further evaluation if your symptoms do not resolve. Chronic Obstructive Lung Disease You have chronic obstructive lung disease (COPD). The symptoms come from emphysema (damage to small airways, with trapping of air in large sacks in the lung) and chronic bronchitis (repeated infection and damage to larger airways). The cause is almost always cigarette smoking, although dust exposure, asthma, and infections contribute. You should avoid fumes, dust, and smoke (especially tobacco smoke). Your condition will flare from time to time. There is no cure, but the symptoms can be treated. Bronchodilators (asthma medicine) are often helpful. Antibiotics help when infection is present. When shortness of breath is severe, we may prescribe cortisone medication. If medicine doesn't help enough, we can arrange for you to have an oxygen tank at home. Notify your doctor at once if sputum becomes thick, foul, or bloody, if you develop a fever or chest pain, or if your shortness of breath worsens. FOLLOW-UP CARE: If you have been referred to a physician for follow-up care, call the physician s office for an appointment as you were instructed or within the next two days. If you experience worsening or a significant change in your symptoms, notify the physician immediately or return to the Emergency Department at any time for re-evaluation. Prescriptions: Prednisone [Deltasone 20 mg Tablet] 3 tab PO DAILY 5 Days tablet Referrals: BENITA THOMPSON PA-C [Primary Care Provider] - Follow up tomorrow
[2017-08-19] MEDS: ALBUTEROL SULFATE 0.083% NEB 2.5 MG/3 ML AMPUL NEB SCH (01:16)
[2017-08-19] MEDS ORDERED: ALBUTEROL SULFATE 0.083% NEB 2.5 MG/3 ML AMPUL NEB ONE (02:22)
--- NOTE | 2017-08-19 02:58 | RADIOLOGY REPORT (SQ) ---
EXAM DESCRIPTION: CHEST PA/LAT CLINICAL HISTORY: 32 years, Male, COPD, SOB COMPARISON: None. LIMITATIONS: None. FINDINGS: Emphysematous hyperinflation, clear parenchyma, normal cardiac silhouette, and intact bony thorax. IMPRESSION: Normal chest radiographs. 2011 [employer]- All Rights Reserved
--- NOTE | 2017-08-19 03:06 | EKG REPORT ---
SEVERITY:- ABNORMAL ECG - SINUS RHYTHM ST ELEVATION SUGGESTS PERICARDITIS : Confirmed by: Alexa Molina 19-Aug-2017 03:05:49
[2017-08-19 03:28] LABS: ABSOLUTE EOSINOPHILS # (AUTO) 0.3 10^3/uL (0.0-0.6); ABSOLUTE LYMPHOCYTES (AUTO) 1.1 10^3/uL (0.5-4.7); ABSOLUTE MONOCYTES (AUTO) 0.3 10^3/uL (0.1-1.4); ABSOLUTE NEUT (AUTO) 4.3 10^3/uL (1.7-8.2); BASOPHILS % (AUTO) 0.7 % (0-2); EOSINOPHILS % (AUTO) 4.9 % (0-6); LYMPHOCYTES % (AUTO) 17.7 % (13-45); MEAN CORPUSCULAR HEMOGLOBIN 35.7 pg (27.0-33.4); MEAN CORPUSCULAR HGB CONC 34.1 g/dL (32.0-36.0); MEAN CORPUSCULAR VOLUME 105 fl (80-97); RED BLOOD COUNT 4.21 10^6/uL (4.35-5.55); RED CELL DISTRIBUTION WIDTH 13.8 % (11.5-14.0); SEGMENTED NEUTROPHILS % (AUTO) 71.7 % (42-78); WHITE BLOOD COUNT 6.1 10^3/uL (4.0-10.5)
[2017-08-19 03:38] LABS: ANION GAP 19 (5-19); BLOOD UREA NITROGEN 18 mg/dL (7-20); CALCIUM 10.1 mg/dL (8.4-10.2); CARBON DIOXIDE 20 mmol/L (22-30); CHLORIDE 105 mmol/L (98-107); GLUCOSE 84 mg/dL (75-110); MAGNESIUM 2.1 mg/dL (1.6-2.3); POTASSIUM 4.3 mmol/L (3.6-5.0); SODIUM 143.6 mmol/L (137-145)
[2017-08-19] MEDS: MAGNESIUM SULFATE/D5W 1 GM/100 ML RTUPB IV SCH ×2 (03:40→04:07)
--- NOTE | 2017-08-19 03:55 | RADIOLOGY REPORT (SQ) ---
EXAM DESCRIPTION: KNEE RIGHT 3 VIEWS CLINICAL HISTORY: 32 years, Male, right knee pain no trauma COMPARISON: None. LIMITATIONS: None. FINDINGS: Bones, joints, and soft tissues appear intact. IMPRESSION: Intact right knee. 2011 [email or web address]- All Rights Reserved
[2017-08-19 05:17] VITALS: BP 126/85
== END 2017-08-19 05:09 | disposition home or self-care (01) ==
LOC: ER 00:16
DX: J44.1 Chronic obstructive pulmonary disease with (acute) exacerbation (principal); T48.6X6A Underdosing of antiasthmatics, initial encounter; Z91.128 Patient's intentional underdosing of medication regimen for other reason; Z91.14 Patient's other noncompliance with medication regimen; R07.89 Other chest pain; R06.02 Shortness of breath; Z88.1 Allergy status to other antibiotic agents; Z87.891 Personal history of nicotine dependence
CPT/HCPCS: 93005; 94640 ×2; 99285; 96365; 36415; 83735; 85025; 80048; 84484; 85379; 71020; 73562; 93010; J3475; J7620; J7512

== ENCOUNTER 2019-08-09 14:49 | Emergency (ER) | payer MEDICAID ==
[2019-08-09] MEDS ORDERED: PREDNISONE 20 MG TABLET PO ONE (15:03)
[2019-08-09] MEDS ORDERED: IPRATROPIUM/ALBUTEROL 0.5-2.5 MG/3 ML AMPUL NEB ONE (15:03)
--- NOTE | 2019-08-09 15:05 | ER Document Report ---
ED Medical Screen (RME) - General Chief Complaint: Asthma Exacerbation Stated Complaint: TROUBLE BREATHING Time Seen by Provider: 08/09/19 15:00 Primary Care Provider: BENITA THOMPSON PA-C [Primary Care Provider] - Follow up as needed Information source: Patient Notes: Patient presents with diffuse tight wheezing bilaterally. Patient states he had a cough for the past week. Patient is currently out of his asthma and COPD medications. Patient does state he has been intubated twice in the past due to his asthma. I have greeted and performed a rapid initial assessment of this patient. A comprehensive ED assessment and evaluation of the patient, analysis of test results and completion of the medical decision making process will be conducted by additional ED providers. TRAVEL OUTSIDE OF THE [place] IN LAST 30 DAYS: No - Related Data Allergies/Adverse Reactions: levofloxacin [From Levaquin] Allergy (Severe, Verified 08/09/19 14:59) Past Medical History - Social History Chew tobacco use (# tins/day): No Frequency of alcohol use: None Drug Abuse: None - Past Medical History Cardiac Medical History: Denies: Hx Atrial Fibrillation, Hx Congestive Heart Failure, Hx Coronary Artery Disease, Hx DVT, Hx Heart Attack, Hx Hypercholesterolemia, Hx Hypertension, Hx Peripheral Vascular Disease, Hx Pulmonary Embolism, Hx Heart Murmur Pulmonary Medical History: Reports: Hx Asthma, Hx Bronchitis, Hx COPD Neurological Medical History: Denies: Hx Migraine, Hx Seizures Endocrine Medical History: Denies: Hx Diabetes Mellitus Type 1, Hx Diabetes Mellitus Type 2, Hx Hyperthyroidism, Hx Hypothyroidism Renal/ Medical History: Denies: Hx End Stage Renal Disease, Hx Peritoneal Dialysis Malignancy Medical History: Denies Hx Bone Cancer, Denies Hx Brain Cancer, Denies Hx Colorectal Cancer, Denies Hx Leukemia, Denies Hx Liver Cancer, Denies Hx Lung Cancer, Denies Hx Lymphoma, Denies Hx Pancreatic Cancer, Denies Hx Renal (Kidney) Cancer, Denies Hx Skin Cancer GI Medical History: Denies: Hx Cirrhosis, Hx Crohn's Disease, Hx Diverticulitis, Hx Gastroesophageal Reflux Disease, Hx Hepatitis, Hx Hiatal Hernia, Hx Ulcerative Colitis Musculoskeltal Medical History: Denies Hx Arthritis, Denies Hx Fibromyalgia, Denies Hx Gout Skin Medical History: Denies Hx Eczema, Denies Hx Psoriasis Psychiatric Medical History: Reports: Hx Depression Traumatic Medical History: Denies: Hx Gunshot Wound, Hx Pneumothorax, Hx Traumatic Brain Injury Infectious Medical History: Denies: Hx C-Diff, Hx Hepatitis, Hx HIV, Hx MRSA, Hx VRE Past Surgical History: Reports: Other - Hernia - Immunizations Hx Diphtheria, Pertussis, Tetanus Vaccination: Yes Physical Exam - Vital signs Vitals: Temp Pulse Resp BP Pulse Ox 98.5 F 85 20 136/94 H 95 08/09/19 14:50 08/09/19 14:50 08/09/19 14:50 08/09/19 14:50 08/09/19 14:50 - Respiratory Respiratory status: No respiratory distress Breath sounds: Nonproductive cough, Wheezing Course - Vital Signs Vital signs: Temp Pulse Resp BP Pulse Ox 98.5 F 85 20 136/94 H 95 08/09/19 14:50 08/09/19 14:50 08/09/19 14:50 08/09/19 14:50 08/09/19 14:50 Doctor's Discharge - Discharge Referrals: BENITA THOMPSON PA-C [Primary Care Provider] - Follow up as needed
[2019-08-09] MEDS: ALBUTEROL SULFATE 0.083% NEB 2.5 MG/3 ML AMPUL NEB SCH ×2 (15:21→15:51)
[2019-08-09] MEDS ORDERED: IPRATROPIUM/ALBUTEROL 0.5-2.5 MG/3 ML AMPUL NEB SCH (15:45)
--- NOTE | 2019-08-09 15:48 | ER Document Report ---
ED Respiratory Problem - General Chief Complaint: Asthma Exacerbation Stated Complaint: TROUBLE BREATHING Time Seen by Provider: 08/09/19 15:00 Primary Care Provider: BENITA THOMPSON PA-C [NO LOCAL MD] - Follow up as needed Notes: HPI: 34-year-old male with past medical history of asthma. There was report that the patient has had COPD but he states he has had childhood asthma and does smoke occasionally. Patient states that he is out of his albuterol inhaler, nebulizer solution, and steroid inhaler. He states last 2 days he has had some intermittent chest tightness with some wheezing. He denies runny nose, co ngestion, cough, fever, calf pain or leg swelling. Patient does have a primary care physician but recently got out of [facility]. Patient had steroids and a nebulizer ordered in triage. I saw the patient after the nebulizer. Patient states he was intubated previously x1 in the past for a bad exacerbation. ROS: See HPI All other review of systems reviewed and otherwise negative Reviewed vital signs and nursing note as charted by RN. PHYSICAL EXAM: CONSTITUTIONAL: Alert and oriented and responds appropriately to questions. Well-appearing; well-nourished; no obvious tachypnea. Sitting up on room air no acute distress speaking in full sentences HEAD: Normocephalic; atraumatic EYES: PERRL; Conjunctivae clear, sclerae non-icteric ENT: Normal nose; no rhinorrhea; moist mucous membranes; pharynx without lesions noted NECK: Supple without meningismus; non-tender; no cervical lymphadenopathy, no masses CARD: Regular rate and rhythm; no murmurs; symmetric distal pulses RESP: Normal chest excursion without splinting or tachypnea; breath sounds clear and equal bilaterally; very minimal wheezing without any rhonchi or rales appreciated ABD/GI: Normal bowel sounds; non-distended; soft, non-tender BACK: The back appears normal and is non-tender to palpation EXT: Normal ROM in all joints; non-tender to palpation; no edema SKIN: No acute lesions noted NEURO: CN 2-12 intact; 5/5 bilateral upper and lower extremity strength with sensation intact to light touch PSYCH: The patient's mood and manner are appropriate. Grooming and personal hygiene are appropriate. TRAVEL OUTSIDE OF THE [place] IN LAST 30 DAYS: No - Related Data Allergies/Adverse Reactions: levofloxacin [From LevPrivlo] Allergy (Severe, Verified 08/09/19 14:59) Past Medical History - General Information source: Patient - Social History Smoking Status: Never Smoker Chew tobacco use (# tins/day): No Frequency of alcohol use: None Drug Abuse: None Family History: COPD Patient has suicidal ideation: No Patient has homicidal ideation: No - Past Medical History Cardiac Medical History: Denies: Hx Atrial Fibrillation, Hx Congestive Heart Failure, Hx Coronary Artery Disease, Hx DVT, Hx Heart Attack, Hx Hypercholesterolemia, Hx Hypertension, Hx Peripheral Vascular Disease, Hx Pulmonary Embolism, Hx Heart Murmur Pulmonary Medical History: Reports: Hx Asthma, Hx Bronchitis, Hx COPD Neurological Medical History: Denies: Hx Migraine, Hx Seizures Endocrine Medical History: Denies: Hx Diabetes Mellitus Type 1, Hx Diabetes Mellitus Type 2, Hx Hyperthyroidism, Hx Hypothyroidism Renal/ Medical History: Denies: Hx End Stage Renal Disease, Hx Peritoneal Dialysis Malignancy Medical History: Denies Hx Bone Cancer, Denies Hx Brain Cancer, Denies Hx Colorectal Cancer, Denies Hx Leukemia, Denies Hx Liver Cancer, Denies Hx Lung Cancer, Denies Hx Lymphoma, Denies Hx Pancreatic Cancer, Denies Hx Renal (Kidney) Cancer, Denies Hx Skin Cancer GI Medical History: Denies: Hx Cirrhosis, Hx Crohn's Disease, Hx Diverticulitis, Hx Gastroesophageal Reflux Disease, Hx Hepatitis, Hx Hiatal Hernia, Hx Ulcera tive Colitis Musculoskeletal Medical History: Denies Hx Arthritis, Denies Hx Fibromyalgia, Denies Hx Gout Skin Medical History: Denies Hx Eczema, Denies Hx Psoriasis Psychiatric Medical History: Reports: Hx Depression Traumatic Medical History: Denies: Hx Gunshot Wound, Hx Pneumothorax, Hx Traumatic Brain Injury Infectious Medical History: Denies: Hx C-Diff, Hx Hepatitis, Hx HIV, Hx MRSA, Hx VRE Past Surgical History: Reports: Other - Hernia - Immunizations Hx Diphtheria, Pertussis, Tetanus Vaccination: Yes Physical Exam - Vital signs Vitals: Temp Pulse Resp BP Pulse Ox 98.5 F 85 20 136/94 H 95 08/09/19 14:50 08/09/19 14:50 08/09/19 14:50 08/09/19 14:50 08/09/19 14:50 Course - Re-evaluation Re-evalutation: 08/09/19 15:47 Given the above history and physical we will order an x-ray of the chest as well as provide another duo nebulizer. The patient continues to look excellent and the wheezings though stay improved, we will start the patient on his home medications and provide an albuterol inhaler with a 4-day course of steroids. 08/09/19 16:54 Wheezing has improved. X-ray as recorded. Good oxygenation. I will refill the patient's albuterol inhaler, solution, Advair, and have the patient follow-up with the primary care physician which he still states he has. - Vital Signs Vital signs: Temp Pulse Resp BP Pulse Ox 98.1 F 99 18 113/79 93 08/09/19 16:13 08/09/19 16:13 08/09/19 16:13 08/09/19 16:13 08/09/19 16:13 Discharge - Discharge Clinical Impression: Asthma with acute exacerbation Qualifiers: Asthma severity: mild Asthma persistence: intermittent Qualified Code(s): J45.21 - Mild intermittent asthma with (acute) exacerbation Condition: Good Disposition: HOME, SELF-CARE Additional Instructions: Come back immediately for any worsening shortness of breath, any cough, fevers, chest pain, leg swelling, or any other acute problems. Please make sure that you follow-up with the primary care physician as discussed. Please take 2 puffs of the albuterol inhaler every 4 hours for the first 48 hours and then every 6 hours after that as needed. Prescriptions: Fluticasone/Salmeterol [Advair 250-50 Diskus 14 Dose/Diskus] 1 inh IH Q12H #1 inhaler Albuterol Sulfate [Albuterol Sulfate 5mg/1 mL] 5 mg PO Q6 #20 ml Prednisone [Deltasone 20 mg Tablet] 3 tab PO DAILY 4 Days #12 tablet Referrals: BENITA THOMPSON PA-C [NO LOCAL MD] - Follow up as needed
--- NOTE | 2019-08-09 16:05 | RADIOLOGY REPORT (SQ) ---
EXAM DESCRIPTION: CHEST 2 VIEWS COMPLETED DATE/TIME: 08/09/2019 3:38 pm REASON FOR STUDY: sob, wheezing COMPARISON: 08/19/2017. EXAM PARAMETERS: NUMBER OF VIEWS: two views TECHNIQUE: Digital Frontal and Lateral radiographic views of the chest acquired. RADIATION DOSE: NA LIMITATIONS: none FINDINGS: LUNGS AND PLEURA: No opacities, masses or pneumothorax. No pleural effusion. MEDIASTINUM AND HILAR STRUCTURES: No masses or contour abnormalities. HEART AND VASCULAR STRUCTURES: Heart normal size. No evidence for failure. BONES: No acute findings. HARDWARE: None in the chest. OTHER: No other significant finding. IMPRESSION: NO ACUTE RADIOGRAPHIC FINDING IN THE CHEST. TECHNICAL DOCUMENTATION: JOB ID: [id number] [employer]- All Rights Reserved Reading location - IP/workstation name: [email or web address]
[2019-08-09 16:14] VITALS: BP 113/79
[2019-08-09] MEDS ORDERED: ALBUTEROL SULFATE HFA (90 MCG/PUFF) 8 GM MDI (1 MDI/ER DISP) IH PRN (16:52)
== END 2019-08-09 17:10 | disposition home or self-care (01) ==
LOC: ER 14:49
DX: J45.21 Mild intermittent asthma with (acute) exacerbation (principal); J44.9 Chronic obstructive pulmonary disease, unspecified; R07.89 Other chest pain; Z88.1 Allergy status to other antibiotic agents
CPT/HCPCS: 99284; 71046; J7512; J3490; J7620

== ENCOUNTER 2019-10-15 22:00 | Emergency (ER) | payer MEDICAID ==
[2019-10-15] MEDS ORDERED: IPRATROPIUM/ALBUTEROL 0.5-2.5 MG/3 ML AMPUL NEB ONE (22:52)
[2019-10-15] MEDS ORDERED: PREDNISONE 20 MG TABLET PO ONE (22:52)
--- NOTE | 2019-10-15 22:54 | ER Document Report ---
ED Medical Screen (RME) - General Chief Complaint: Chest Tightness Stated Complaint: TROUBLE BREATHING Time Seen by Provider: 10/15/19 22:48 Notes: Patient is a 34-year-old male with a history of COPD and asthma who presents emergency department with a chief complaint of wheezing. Patient reports over the past few days she has had some chest tightness and wheezing. Patient reports a nonproductive cough. Patient reports that he has ran out of his albuterol nebulizer and inhaler. Patient denies fever. TRAVEL OUTSIDE OF THE [place] IN LAST 30 DAYS: No - Related Data Allergies/Adverse Reactions: levofloxacin [From Lev[employer] Solutionsuin] Allergy (Severe, Verified 10/15/19 22:48) Past Medical History - Past Medical History Cardiac Medical History: Denies: Hx Atrial Fibrillation, Hx Congestive Heart Failure, Hx Coronary Artery Disease, Hx DVT, Hx Heart Attack, Hx Hypercholesterolemia, Hx Hypertension, Hx Peripheral Vascular Disease, Hx Pulmonary Embolism, Hx Heart Murmur Pulmonary Medical History: Reports: Hx Asthma, Hx Bronchitis, Hx COPD Neurological Medical History: Denies: Hx Migraine, Hx Seizures Endocrine Medical History: Denies: Hx Diabetes Mellitus Type 1, Hx Diabetes Mellitus Type 2, Hx Hyperthyroidism, Hx Hypothyroidism Renal/ Medical History: Denies: Hx End Stage Renal Disease, Hx Peritoneal Dialysis Malignancy Medical History: Denies Hx Bone Cancer, Denies Hx Brain Cancer, Denies Hx Colorectal Cancer, Denies Hx Leukemia, Denies Hx Liver Cancer, Denies Hx Lung Cancer, Denies Hx Lymphoma, Denies Hx Pancreatic Cancer, Denies Hx Renal (Kidney) Cancer, Denies Hx Skin Cancer GI Medical History: Denies: Hx Cirrhosis, Hx Crohn's Disease, Hx Diverticulitis, Hx Gastroesophageal Reflux Disease, Hx Hepatitis, Hx Hiatal Hernia, Hx Ulcerative Colitis Musculoskeltal Medical History: Denies Hx Arthritis, Denies Hx Fibromyalgia, Denies Hx Gout Skin Medical History: Denies Hx Eczema, Denies Hx Psoriasis Psychiatric Medical History: Reports: Hx Depression Traumatic Medical History: Denies: Hx Gunshot Wound, Hx Pneumothorax, Hx Traumatic Brain Injury Infectious Medical History: Denies: Hx C-Diff, Hx Hepatitis, Hx HIV, Hx MRSA, Hx VRE Past Surgical History: Reports: Other - Hernia - Immunizations Hx Diphtheria, Pertussis, Tetanus Vaccination: Yes Physical Exam - Vital signs Vitals: Temp Pulse Resp BP Pulse Ox 98.9 F 80 18 137/92 H 96 10/15/19 22:03 10/15/19 22:03 10/15/19 22:03 10/15/19 22:03 10/15/19 22:03 Course - Re-evaluation Re-evalutation: 10/15/19 22:54 Patient has diffuse expiratory wheeze noted throughout all lung hicks. Will initiate a breathing treatment and oral steroids. I have greeted and performed a rapid initial assessment of this patient. A comprehensive ED assessment and evaluation of the patient, analysis of test results and completion of the medical decision making process will be conducted by additional ED providers. - Vital Signs Vital signs: Temp Pulse Resp BP Pulse Ox 98.9 F 80 18 137/92 H 96 10/15/19 22:03 10/15/19 22:03 10/15/19 22:03 10/15/19 22:03 10/15/19 22:03
[2019-10-15] MEDS ORDERED: ALBUTEROL SULFATE 0.083% NEB 2.5 MG/3 ML AMPUL NEB ONE (23:22)
[2019-10-16] MEDS ORDERED: ALBUTEROL SULFATE 0.083% NEB 2.5 MG/3 ML AMPUL NEB ONE (01:10)
[2019-10-16] MEDS ORDERED: ALBUTEROL SULFATE HFA (90 MCG/PUFF) 8 GM MDI (1 MDI/ER DISP) IH PRN (01:10)
--- NOTE | 2019-10-16 01:16 | ER Document Report ---
HPI - HPI Time Seen by Provider: 10/15/19 22:48 Pain Level: 3 Context: Patient is a 34-year-old male with a history of COPD and asthma who presents emergency department with a chief complaint of wheezing. Patient reports over the past few days she has had some chest tightness and wheezing. Patient reports a nonproductive cough. Patient reports that he has ran out of his albuterol nebulizer and inhaler. Patient denies fever. - REPRODUCTIVE Reproductive: DENIES: : Past Medical History - General Information source: Patient - Social History Smoking Status: Never Smoker Lives with: Family Family History: COPD Patient has suicidal ideation: No Patient has homicidal ideation: No - Past Medical History Cardiac Medical History: Reports: None Denies: Hx Atrial Fibrillation, Hx Congestive Heart Failure, Hx Coronary Artery Disease, Hx DVT, Hx Heart Attack, Hx Hypercholesterolemia, Hx Hypertension, Hx Peripheral Vascular Disease, Hx Pulmonary Embolism, Hx Heart Murmur Pulmonary Medical History: Reports: Hx Asthma, Hx Bronchitis, Hx COPD EENT Medical History: Reports: None Neurological Medical History: Reports: None. Denies: Hx Migraine, Hx Seizures Endocrine Medical History: Reports: None. Denies: Hx Diabetes Mellitus Type 1, Hx Diabetes Mellitus Type 2, Hx Hyperthyroidism, Hx Hypothyroidism Renal/ Medical History: Reports: None. Denies: Hx End Stage Renal Disease, Hx Peritoneal Dialysis Malignancy Medical History: Reports None, Denies Hx Bone Cancer, Denies Hx Brain Cancer, Denies Hx Colorectal Cancer, Denies Hx Leukemia, Denies Hx Liver Cancer, Denies Hx Lung Cancer, Denies Hx Lymphoma, Denies Hx Pancreatic Cancer, Denies Hx Renal (Kidney) Cancer, Denies Hx Skin Cancer GI Medical History: Reports: None. Denies: Hx Cirrhosis, Hx Crohn's Disease, Hx Diverticulitis, Hx Gastroesophageal Reflux Disease, Hx Hepatitis, Hx Hiatal Hernia, Hx Ulcerative Colitis Musculoskeletal Medical History: Reports None, Denies Hx Arthritis, Denies Hx Fibromyalgia, Denies Hx Gout Skin Medical History: Reports None, Denies Hx Eczema, Denies Hx Psoriasis Psychiatric Medical History: Reports: Hx Depression Traumatic Medical History: Reports: None. Denies: Hx Gunshot Wound, Hx Pneumothorax, Hx Traumatic Brain Injury Infectious Medical History: Reports: None. Denies: Hx C-Diff, Hx Hepatitis, Hx HIV, Hx MRSA, Hx VRE Surgical Hx: Negative Past Surgical History: Reports: Other - Hernia - Immunizations Hx Diphtheria, Pertussis, Tetanus Vaccination: Yes Vertical Provider Document - CONSTITUTIONAL Agree With Documented VS: Yes Exam Limitations: No Limitations General Appearance: No Apparent Distress - INFECTION CONTROL TRAVEL OUTSIDE OF THE [place] IN LAST 30 DAYS: No - HEENT HEENT: Atraumatic, Normal ENT Exam, Normocephalic, PERRLA - NECK Neck: Normal Inspection - RESPIRATORY Respiratory: No Respiratory Distress Notes: Patient has expiratory wheeze noted in the left lower lobe. Breathing even and unlabored. - CARDIOVASCULAR Cardiovascular: Regular Rate, Regular Rhythm - GI/ABDOMEN Gastrointestinal: Abdomen Soft, Abdomen Non-Tender, Normal Bowel Sounds - MUSCULOSKELETAL/EXTREMETIES Musculoskeletal/Extremeties: FROM - NEURO Level of Consciousness: Awake, Alert, Appropriate - DERM Integumentary: Warm, Dry, No Rash Course - Re-evaluation Re-evalutation: 10/16/19 01:11 I saw the patient originally in triage and he did receive p.o. prednisone, a DuoNeb and 1 albuterol treatment. Upon reevaluation patient reports feeling much better with his chest tightness. Patient does have expiratory wheeze in the left lower lobe but that his wheezing has significantly improved. Will give 1 more dose of albuterol. We will send the patient home with albuterol inhaler, albuterol medication for his nebulizer machine and place the patient on a steroid 60 mg QD x 4 days. Patient verbalized understanding. Patient no acute distress. - Vital Signs Vital signs: Temp Pulse Resp BP Pulse Ox 98.9 F 80 18 137/92 H 96 10/15/19 22:03 10/15/19 22:03 10/15/19 22:03 10/15/19 22:03 10/15/19 22:03 Discharge - Discharge Clinical Impression: Wheezing Asthma Qualifiers: Asthma severity: mild Asthma persistence: unspecified Asthma complication type: with acute exacerbation Qualified Code(s): J45.901 - Unspecified asthma with (acute) exacerbation Condition: Stable Disposition: HOME, SELF-CARE Additional Instructions: ASTHMA: You have been diagnosed as having asthma. This is a condition where there is episodic tightness in the bronchial tubes. Allergies, infections, and polluted or cold air may be contributing factors. Emergency treatment of a severe asthma attack may include adrenaline shots, or bronchodilator aerosol. You may feel lightheaded, have a decreased exercise tolerance and a rapid pulse for an hour or two. Rest and get plenty of fluids. Home treatment of asthma requires bronchodilator drugs. These can be administered by injection, inhalation, or by mouth. Antibiotics and corticosteroids may be required for some patients. You should avoid chemical fumes, dusts, pollens, and exercising in very cold or dry air. If you smoke, stop!! If you develop a fever, increased wheezing, chest pain, or severe shortness of breath, you should contact the doctor immediately. *Today you are seen the emergency department for asthma. After multiple breathing treatments your breathing has significantly improved. Please use your albuterol inhaler, medication for the nebulizer machine and steroids as prescribed. Please return the emergency department if your symptoms worsen or you develop wheezing again despite interventions. STEROID MEDICATION: You have been given an injection of or oral medicine of the cortisone/steroid class. This medication is used to control inflammation or allergy. Ruddy t is usually only given for a short period of time, until the acute process subsides. There are usually no side effects from short-term use of cortisone-like medications. Some persons feel an increased sense of well-being and are not sleepy at bedtime. Long-term use of cortisone medications is best avoided, unless required for a severe condition. If your condition does not remit, or relapses after the course of corticosteroid medication, you should consult your physician. INHALED BRONCHODILATORS: You have received treatment(s) of and/or prescription for an inhaled bronchodilator -- a medication which stimulates the airways in the lung to dilate. This improves the flow of air in asthma, bronchitis, and emphysema. These medicines have some similarity to adrenaline, and can cause similar side effects: shakiness, racing heart, and a sense of nervousness. These side effects decrease with time. Contact your doctor if these side effects are severe. Do not over-use the medicine. Too-frequent use of the inhaler may make it ineffective. Call your doctor if the inhaler is not controlling your symptoms at the prescribed doses. SMOKING: If you smoke, you should stop smoking. The tar and chemicals in cigarette smoke are harmful. Smoking has been shown to cause: emphysema chronic bronchitis lung cancer mouth and throat cancer stomach and pancreas cancer premature aging defects In addition, smoking increases ear and lung infections in children of smokers. USE OF ACETAMINOPHEN (Tylenol): Acetaminophen may be taken for pain relief or fever control. It's much safer than aspirin, offering a wider range of "safe" dosages. It is safe during . Some brand names are Tylenol, Panadol, Datril, Anacin 3, Tempra, and Liquiprin. Acetaminophen can be repeated every four hours. The following are maximum recommended dosages: WEIGHT Dose Drops Elixir Chewable(80mg) (LBS.) drprs=droppers tsp=teaspoon 6 40 mg 0.4 ml (1/2) 6-11 80 mg 0.8 ml (full) tsp 1 tab 12-16 120 mg 1 1/2 drprs 3/4 tsp 1 1/2 tabs 17-23 160 mg 2 drprs 1 tsp 2 tabs 24-30 240 mg 3 drprs 1 1/2 tsp 3 tabs 30-35 320 mg 2 tsp 4 tabs 36-41 360 mg 2 1/4 tsp 4 1/2 tabs 42-47 400 mg 2 1/2 tsp 5 tabs 48-53 480 mg 3 tsp 6 tabs 54-59 520 mg 3 1/4 tsp 6 1/2 tabs 60-64 560 mg 3 1/2 tsp 7 tabs 65-70 600 mg 3 3/4 tsp 7 1/2 tabs 71-76 640 mg 4 tsp 8 tabs 77-82 720 mg 4 1/2 tsp 9 tabs 83-88 800 mg 5 tsp 10 tabs >89 pounds or adults 650 mg to 900 mg Acetaminophen can be repeated every four hours. Maximum dose not to exceed 4000 mg a day. These maximum recommended dosages are slightly higher than the dosages written on the product container, but these dosages are very safe and below the toxic dosage for acetaminophen. FOLLOW-UP CARE: If you have been referred to a physician for follow-up care, call the physicians office for an appointment as you were instructed or within the next two days. If you experience worsening or a significant change in your symptoms, notify the physician immediately or return to the Emergency Department at any time for re-evaluation. Prescriptions: Prednisone [Deltasone 10 mg Tablet] 10 mg PO ASDIR PRN #21 tablet PRN Reason: Prednisone [Deltasone 20 mg Tablet] 3 tab PO DAILY 4 Days #12 tablet Albuterol Sulfate [Ventolin 0.083% Neb 2.5 mg/3 mL Ampul] 2.5 mg NEB Q4 PRN #21 vial.neb PRN Reason: Referrals: BENITA THOMPSON PA-C [Primary Care Provider] - Follow up as needed
[2019-10-16 01:34] VITALS: BP 147/90
== END 2019-10-16 01:34 | disposition home or self-care (01) ==
LOC: ER 22:00
DX: J45.901 Unspecified asthma with (acute) exacerbation (principal); J44.9 Chronic obstructive pulmonary disease, unspecified; R07.89 Other chest pain; R05 Cough
CPT/HCPCS: J7512; J3490; J7620; 94640; 99284

== ENCOUNTER 2019-11-04 10:37 | Emergency (ER) | payer MEDICAID ==
[2019-11-04] MEDS ORDERED: PREDNISONE 20 MG TABLET PO ONE (13:05)
[2019-11-04] MEDS ORDERED: IPRATROPIUM/ALBUTEROL 0.5-2.5 MG/3 ML AMPUL NEB ONE (13:05)
--- NOTE | 2019-11-04 13:10 | ER Document Report ---
HPI - HPI Time Seen by Provider: 11/04/19 13:01 Pain Level: 5 Notes: CHIEF COMPLAINT: Asthma attack HPI: 34-year-old male with asthma history presenting to the emergency department for evaluation of shortness of breath over the last 2 to 3 days. No fever. Out of his inhaler. Did not see his PCP for evaluation of this issue prior to coming to the emergency department today. ROS: See HPI - all other systems were reviewed and are otherwise negative Constitutional: no fever Eyes: no drainage, no blurred vision ENT: no runny nose, no sore throat Cardiovascular: no chest pain Resp: + SOB, + cough GI: no vomiting, no diarrhea, no abdominal pain : no dysuria Integumentary: no rash Allergy: no hives Musculoskeletal: no extremity pain or swelling Neurological: no numbness/tingling, no weakness MEDICATIONS: I agree with the patient medications as charted by the RN. ALLERGIES: I agree with the allergies as charted by the RN. PAST MEDICAL HISTORY/PAST SURGICAL HISTORY: Reviewed and agree as charted by RN. SOCIAL HISTORY: Reviewed and agree as charted by RN. FAMILY HISTORY: No significant familial comorbid conditions directly related to patient complaint EXAM: Reviewed vital signs as charted by RN. CONSTITUTIONAL: Alert and oriented and responds appropriately to questions. Well-appearing; well-nourished, mild distress secondary to wheezing HEAD: Normocephalic; atraumatic EYES: PERRL; Conjunctivae clear, sclerae non-icteric ENT: normal nose; no rhinorrhea; moist mucous membranes; pharynx without lesions noted, no uvula edema or deviation, no tonsillar hypertrophy, phonation normal NECK: Supple without meningismus; non-tender; no cervical lymphadenopathy, no masses CARD: RRR; no murmurs, no clicks, no rubs, no gallops; symmetric distal pulses RESP: Normal chest excursion without splinting or tachypnea; breath sounds with slight expiratory wheeze in all lung hicks, no rhonchi, no rales, pulse oximetry 95% on room air not hypoxic ABD/GI: Normal bowel sounds; non-distended; soft, non-tender. BACK: The back appears normal and is non-tender to palpation, there is no CVA tenderness EXT: Normal ROM in all joints; no cyanosis, no effusions, no edema SKIN: Normal color for age and race; warm; dry; good turgor; no acute lesions noted NEURO: Moves all extremities equally; Motor and sensory function intact PSYCH: The patient's mood and manner are appropriate. Grooming and personal hygiene are appropriate. MDM: 34-year-old male with asthma history out of his medications presenting with wheezing for 3 days states it feels similar to prior asthma exacerbations. Patient would like a breathing treatment while in the emergency department. We will also give his first dose of steroids. I will E scribe his medications to his pharmacy and he should follow-up with his PCP - REPRODUCTIVE Reproductive: DENIES: : Past Medical History - Social History Smoking Status: Former Smoker Frequency of alcohol use: None Drug Abuse: None Family History: COPD Patient has suicidal ideation: No Patient has homicidal ideation: No - Past Medical History Cardiac Medical History: Denies: Hx Atrial Fibrillation, Hx Congestive Heart Failure, Hx Coronary Artery Disease, Hx DVT, Hx Heart Attack, Hx Hypercholesterolemia, Hx Hypertension, Hx Peripheral Vascular Disease, Hx Pulmonary Embolism, Hx Heart Murmur Pulmonary Medical History: Reports: Hx Asthma, Hx Bronchitis, Hx COPD Neurological Medical History: Denies: Hx Migraine, Hx Seizures Endocrine Medical History: Denies: Hx Diabetes Mellitus Type 1, Hx Diabetes Mellitus Type 2, Hx Hyperthyroidism, Hx Hypothyroidism Renal/ Medical History: Denies: Hx End Stage Renal Disease, Hx Peritoneal Dialysis Malignancy Medical History: Denies Hx Bone Cancer, Denies Hx Brain Cancer, Denies Hx Colorectal Cancer, Denies Hx Leukemia, Denies Hx Liver Cancer, Denies Hx Lung Cancer, Denies Hx Lymphoma, Denies Hx Pancreatic Cancer, Denies Hx Renal (Kidney) Cancer, Denies Hx Skin Cancer GI Medical History: Denies: Hx Cirrhosis, Hx Crohn's Disease, Hx Diverticulitis, Hx Gastroesophageal Reflux Disease, Hx Hepatitis, Hx Hiatal Hernia, Hx Ulcerative Colitis Musculoskeletal Medical History: Denies Hx Arthritis, Denies Hx Fibromyalgia, Denies Hx Gout Skin Medical History: Denies Hx Eczema, Denies Hx Psoriasis Psychiatric Medical History: Reports: Hx Depression Traumatic Medical History: Denies: Hx Gunshot Wound, Hx Pneumothorax, Hx Traumatic Brain Injury Infectious Medical History: Denies: Hx C-Diff, Hx Hepatitis, Hx HIV, Hx MRSA, Hx VRE Past Surgical History: Reports: Other - Hernia - Immunizations Hx Diphtheria, Pertussis, Tetanus Vaccination: Yes Vertical Provider Document - INFECTION CONTROL TRAVEL OUTSIDE OF THE [place] IN LAST 30 DAYS: No Course - Vital Signs Vital signs: Temp Pulse Resp BP Pulse Ox 98.0 F 84 20 158/88 H 95 11/04/19 10:42 11/04/19 10:42 11/04/19 10:42 11/04/19 10:42 11/04/19 10:42 Discharge - Discharge Clinical Impression: Medication refill Asthma exacerbation Qualifiers: Asthma severity: mild Asthma persistence: intermittent Qualified Code(s): J45.21 - Mild intermittent asthma with (acute) exacerbation Condition: Stable Disposition: HOME, SELF-CARE Instructions: Asthma ([facility]) Additional Instructions: Use the albuterol inhaler 2 puffs every 4 hours as needed for shortness of breath. Take the steroids as prescribed. Follow-up with a primary care provider for further medication management for your asthma Prescriptions: Prednisone [Deltasone 20 mg Tablet] 2 tab PO DAILY 5 Days #10 tablet Albuterol Sulfate [Proair HFA Inhalation Aerosol 8.5 gm MDI] 2 puff IH Q4H PRN #1 mdi PRN Reason: Referrals: BENITA THOMPSON PA-C [Primary Care Provider] - Follow up as needed
[2019-11-04 13:52] VITALS: BP 126/75
== END 2019-11-04 13:53 | disposition home or self-care (01) ==
LOC: ER 10:37
DX: Z76.0 Encounter for issue of repeat prescription (principal); J45.21 Mild intermittent asthma with (acute) exacerbation; R06.02 Shortness of breath; Z87.891 Personal history of nicotine dependence; J44.9 Chronic obstructive pulmonary disease, unspecified
CPT/HCPCS: 94640; 99284; J7512; J7620

== ENCOUNTER 2020-05-03 17:20 | Emergency (ER) | payer MEDICAID ==
[2020-05-03] MEDS ORDERED: IPRATROPIUM/ALBUTEROL 0.5-2.5 MG/3 ML AMPUL NEB ONE (17:44)
--- NOTE | 2020-05-03 17:48 | ER Document Report ---
ED General - General Chief Complaint: Shortness Of Breath Stated Complaint: SHORT OF BREATH,WHEEZING Notes: Patient is a 35-year-old -[place] male with a history of asthma and back injury from an accident as a teenager who presents to the emergency department w ith a chief complaint of wheezing and shortness of breath. He states this is been ongoing. He states that he has Medicaid but his financial situation has been "tight". States he has been unable to get prescription medications and his asthma has been largely uncontrolled. He states this feels exactly like his prior asthma exacerbations. Reports the associated shortness of breath and wheezing. He denies any productive cough or fever. No recent travel or known sick contacts. No other coryza. States that he has some soreness in his lower back from time to time that he attributes to an accident many years ago. He denies any new injury, fall or trauma. Denies any numbness tingling or weakness. Denies any urinary or bowel incontinence or retention. Denies any saddle anesthesia. TRAVEL OUTSIDE OF THE [place] IN LAST 30 DAYS: No - Related Data Allergies/Adverse Reactions: levofloxacin [From LevSafeLogic] Allergy (Severe, Verified 05/03/20 17:38) Past Medical History - Social History Smoking Status: Current Every Day Smoker Frequency of alcohol use: None Drug Abuse: None Family History: COPD Patient has homicidal ideation: No - Past Medical History Cardiac Medical History: Denies: Hx Atrial Fibrillation, Hx Congestive Heart Failure, Hx Coronary Artery Disease, Hx DVT, Hx Heart Attack, Hx Hypercholesterolemia, Hx Hypertension, Hx Peripheral Vascular Disease, Hx Pulmonary Embolism, Hx Heart Murmur Pulmonary Medical History: Reports: Hx Asthma, Hx Bronchitis, Hx COPD Neurological Medical History: Denies: Hx Migraine, Hx Seizures Endocrine Medical History: Denies: Hx Diabetes Mellitus Type 1, Hx Diabetes Mellitus Type 2, Hx Hyperthyroidism, Hx Hypothyroidism Renal/ Medical History: Denies: Hx End Stage Renal Disease, Hx Peritoneal Dialysis Malignancy Medical History: Denies Hx Bone Cancer, Denies Hx Brain Cancer, Denies Hx Colorectal Cancer, Denies Hx Leukemia, Denies Hx Liver Cancer, Denies Hx Lung Cancer, Denies Hx Lymphoma, Denies Hx Pancreatic Cancer, Denies Hx Renal (Kidney) Cancer, Denies Hx Skin Cancer GI Medical History: Denies: Hx Cirrhosis, Hx Crohn's Disease, Hx Diverticulitis, Hx Gastroesophageal Reflux Disease, Hx Hepatitis, Hx Hiatal Hernia, Hx Ulcerative Colitis Musculoskeletal Medical History: Denies Hx Arthritis, Denies Hx Fibromyalgia, Denies Hx Gout Skin Medical History: Denies Hx Eczema, Denies Hx Psoriasis Psychiatric Medical History: Reports: Hx Depression Traumatic Medical History: Denies: Hx Gunshot Wound, Hx Pneumothorax, Hx Traumatic Brain Injury Infectious Medical History: Denies: Hx C-Diff, Hx Hepatitis, Hx HIV, Hx MRSA, Hx VRE Past Surgical History: Reports: Other - Hernia - Immunizations Hx Diphtheria, Pertussis, Tetanus Vaccination: Yes Review of Systems - Review of Systems Constitutional: denies: Fever EENT: denies: Throat pain Cardiovascular: denies: Chest pain Respiratory: Short of breath, Wheezing Gastrointestinal: denies: Abdominal pain Genitourinary: denies: Pain Male Genitourinary: denies: Testicular pain Musculoskeletal: Back pain Skin: denies: Change in color Hematologic/Lymphatic: denies: Easy bleeding Neurological/Psychological: denies: Numbness Physical Exam - Vital signs Vitals: Temp Pulse Resp BP Pulse Ox 97.7 F 95 16 116/69 95 05/03/20 17:59 05/03/20 17:59 05/03/20 17:59 05/03/20 17:59 05/03/20 17:59 - General General appearance: Appears well, Alert In distress: None - HEENT Head: Normocephalic, Atraumatic Eyes: Normal Pupils: PERRL - Respiratory Respiratory status: No respiratory distress Chest status: Nontender Breath sounds: Wheezing - Mild wheezing throughout Chest palpation: Normal - Cardiovascular Rhythm: Regular Heart sounds: Normal auscultation - Abdominal Inspection: Normal Distension: No distension Bowel sounds: Normal Tenderness: Nontender Organomegaly: No organomegaly - Extremities General upper extremity: Normal inspection, Nontender, Normal color, Normal ROM, Normal temperature General lower extremity: Normal inspection, Nontender, Normal color, Normal ROM, Normal temperature, Normal weight bearing. No: Shahzad's sign - Neurological Neuro grossly intact: Yes Cognition: Normal Orientation: AAOx4 - Psychological Associated symptoms: Normal affect, Normal mood - Skin Skin Temperature: Warm Skin Moisture: Dry Skin Color: Normal Course - Re-evaluation Re-evalutation: 05/03/20 18:45 Reevaluation at this time. Patient states he is breathing much better. Is clear to auscultation bilaterally. He is in no acute distress. He is moving with great ease. Urinalysis showing no evidence of urinary involvement with his back pain. Back pain is not acute. No neurologic findings. He will be placed on a short course of steroids and given albuterol inhaler prescription. Counseled him regarding the importance of outpatient follow-up and advised to return here or any ER immediately with any new, persistent or worsening symptoms. He verbalized understood and agreed. - Vital Signs Vital signs: Temp Pulse Resp BP Pulse Ox 97.7 F 95 16 116/69 95 05/03/20 17:59 05/03/20 17:59 05/03/20 17:59 05/03/20 17:59 05/03/20 17:59 - Laboratory Laboratory results interpreted by me: 05/03/20 18:00 Urine Urobilinogen 2.0 H Discharge - Discharge Clinical Impression: Asthma exacerbation Qualifiers: Asthma severity: mild Asthma persistence: intermittent Qualified Code(s): J45.21 - Mild intermittent asthma with (acute) exacerbation Back pain Qualifiers: Back pain location: low back pain Chronicity: unspecified Back pain laterality: unspecified Sciatica presence: without sciatica Qualified Code(s): M54.5 - Low back pain Condition: Stable Disposition: HOME, SELF-CARE Instructions: Asthma ([facility]) Additional Instructions: Follow-up with your regular doctor in 2 to 3 days for reevaluation. Return here or any ER immediately with any new, persistent or worsening symptoms. Prescriptions: Prednisone [Deltasone 20 mg Tablet] 40 mg PO DAILY #10 tablet Albuterol Sulfate [Proair Respiclick] 90 mcg IH Q6 PRN #1 [email or web address] PRN Reason: Referrals: [facility] [NO LOCAL MD] - Follow up as needed
--- NOTE | 2020-05-03 17:54 | RADIOLOGY REPORT (SQ) ---
EXAM DESCRIPTION: CHEST SINGLE VIEW IMAGES COMPLETED DATE/TIME: 05/03/2020 5:44 pm REASON FOR STUDY: sob COMPARISON: 08/09/2019 EXAM PARAMETERS: NUMBER OF VIEWS: One view. TECHNIQUE: Single frontal radiographic view of the chest acquired. RADIATION DOSE: NA LIMITATIONS: None. FINDINGS: LUNGS AND PLEURA: No opacities, masses or pneumothorax. No pleural effusion. MEDIASTINUM AND HILAR STRUCTURES: No masses. Contour normal. HEART AND VASCULAR STRUCTURES: Heart normal in size. Normal vasculature. BONES: No acute findings. HARDWARE: None in the chest. OTHER: No other significant finding. IMPRESSION: 1. No acute significant radiographic finding. TECHNICAL DOCUMENTATION: JOB ID: [id number] 2010 [employer]- All Rights Reserved Reading location - IP/workstation name: [email or web address]
[2020-05-03 18:07] VITALS: BP 116/69
[2020-05-03 18:36] LABS: APPEARANCE,URINE CLEAR; BILIRUBIN,URINE NEGATIVE (NEGATIVE); COLOR,URINE YELLOW; GLUCOSE, URINE NEGATIVE (NEGATIVE); KETONES,URINE NEGATIVE (NEGATIVE); PROTEIN,URINE NEGATIVE (NEGATIVE)
[2020-05-04] MEDS ORDERED: PREDNISONE 20 MG TABLET PO ONE (17:44)
== END 2020-05-03 18:51 | disposition home or self-care (01) ==
LOC: ER 17:20
DX: J45.21 Mild intermittent asthma with (acute) exacerbation (principal); J44.9 Chronic obstructive pulmonary disease, unspecified; M54.5 Low back pain; R06.02 Shortness of breath; F17.200 Nicotine dependence, unspecified, uncomplicated; Z88.1 Allergy status to other antibiotic agents; Z87.828 Personal history of other (healed) physical injury and trauma
CPT/HCPCS: 71045; 81001; 94640; 99284

== ENCOUNTER 2020-07-12 12:35 | Observation (INO) | payer MEDICAID ==
[2020-07-12] MEDS ORDERED: IPRATROPIUM/ALBUTEROL 0.5-2.5 MG/3 ML AMPUL NEB ONE ×2 (12:41→14:56)
[2020-07-12] MEDS ORDERED: METHYLPREDNISOLONE INJ 125 MG/2 ML SDV IV ONE (12:41)
--- NOTE | 2020-07-12 12:45 | ER Document Report ---
ED Medical Screen (RME) - General Chief Complaint: Breathing Difficulty Stated Complaint: SHORTNESS OF BREATH/WHEEZING Time Seen by Provider: 07/12/20 12:36 Mode of Arrival: Ambulatory Information source: Patient Notes: 35-year-old presents to ED for cough wheezing short of breath. He states he had clear mucus for 3 days. He does have a history of COPD depression and bipolar. His O2 sats are 91-93. He is alert and oriented he is having some shortness of breath. He does have wheezes throughout all lobes. He also has coarse lung sounds. I have spoken to the charge nurse that he will need to be monitored. I have greeted and performed a rapid initial assessment of this patient. A comprehensive ED assessment and evaluation of the patient, analysis of test results and completion of medical decision making process will be conducted by an additional ED providers. TRAVEL OUTSIDE OF THE [place] IN LAST 30 DAYS: No - Related Data Allergies/Adverse Reactions: levofloxacin [From Levaquin] Allergy (Severe, Verified 05/03/20 17:38) Past Medical History - Past Medical History Cardiac Medical History: Denies: Hx Atrial Fibrillation, Hx Congestive Heart Failure, Hx Coronary Artery Disease, Hx DVT, Hx Heart Attack, Hx Hypercholesterolemia, Hx Hypertension, Hx Peripheral Vascular Disease, Hx Pulmonary Embolism, Hx Heart Murmur Pulmonary Medical History: Reports: Hx Asthma, Hx Bronchitis, Hx COPD Neurological Medical History: Denies: Hx Migraine, Hx Seizures Endocrine Medical History: Denies: Hx Diabetes Mellitus Type 1, Hx Diabetes Mellitus Type 2, Hx Hyperthyroidism, Hx Hypothyroidism Renal/ Medical History: Denies: Hx End Stage Renal Disease, Hx Peritoneal Dialysis Malignancy Medical History: Denies Hx Bone Cancer, Denies Hx Brain Cancer, Denies Hx Colorectal Cancer, Denies Hx Leukemia, Denies Hx Liver Cancer, Denies Hx Lung Cancer, Denies Hx Lymphoma, Denies Hx Pancreatic Cancer, Denies Hx Renal (Kidney) Cancer, Denies Hx Skin Cancer GI Medical History: Denies: Hx Cirrhosis, Hx Crohn's Disease, Hx Diverticulitis, Hx Gastroesophageal Reflux Disease, Hx Hepatitis, Hx Hiatal Hernia, Hx Ulcerative Colitis Musculoskeltal Medical History: Denies Hx Arthritis, Denies Hx Fibromyalgia, Denies Hx Gout Skin Medical History: Denies Hx Eczema, Denies Hx Psoriasis Psychiatric Medical History: Reports: Hx Depression Traumatic Medical History: Denies: Hx Gunshot Wound, Hx Pneumothorax, Hx Traumatic Brain Injury Infectious Medical History: Denies: Hx C-Diff, Hx Hepatitis, Hx HIV, Hx MRSA, Hx VRE Past Surgical History: Reports: Other - Hernia - Immunizations Hx Diphtheria, Pertussis, Tetanus Vaccination: Yes Physical Exam - Vital signs Vitals: Temp Pulse Resp BP Pulse Ox 98.8 F 104 H 20 126/82 H 93 07/12/20 12:40 07/12/20 12:40 07/12/20 12:40 07/12/20 12:40 07/12/20 12:40 Course - Vital Signs Vital signs: Temp Pulse Resp BP Pulse Ox 98.8 F 104 H 20 126/82 H 93 07/12/20 12:40 07/12/20 12:40 07/12/20 12:40 07/12/20 12:40 07/12/20 12:40
--- NOTE | 2020-07-12 12:54 | ER Document Report ---
ED General - General Chief Complaint: Breathing Difficulty Stated Complaint: SHORTNESS OF BREATH/WHEEZING Time Seen by Provider: 07/12/20 12:36 Mode of Arrival: Ambulatory TRAVEL OUTSIDE OF THE [place] IN LAST 30 DAYS: No - HPI Notes: 35-year-old male with a history of COPD and asthma presents to the emergency room today with shortness of breath, cough and wheezing for the last 3 days. Patient states he ran out of all of his asthma medication a couple of weeks ago.. He was sent over by his primary care office for further evaluation. Denies any chest pain, nausea vomiting diarrhea. Patient denies any fevers or chills. Reports that his shortness of breath is getting worse over time. No history of blood clots, cancer treatments, periods of immobilization, recent surgery, clotting disorders, factor V. Symptoms are coming progressively worse over time. patient denies any Covid exposure within the last 2 weeks. Denies any chest pain, nausea vomiting, diarrhea, abdominal pain, headache, blurred vision double vision loss of vision. - Related Data Allergies/Adverse Reactions: levofloxacin [From Levaquin] Allergy (Severe, Verified 07/12/20 13:07) Past Medical History - General Information source: Patient - Social History Smoking Status: Smoker,Current Status Unk Family History: Reviewed & Not Pertinent, COPD - Past Medical History Cardiac Medical History: Denies: Hx Atrial Fibrillation, Hx Congestive Heart Failure, Hx Coronary Artery Disease, Hx DVT, Hx Heart Attack, Hx Hypercholesterolemia, Hx Hypertension, Hx Peripheral Vascular Disease, Hx Pulmonary Embolism, Hx Heart Murmur Pulmonary Medical History: Reports: Hx Asthma, Hx Bronchitis, Hx COPD Neurological Medical History: Denies: Hx Migraine, Hx Seizures Endocrine Medical History: Denies: Hx Diabetes Mellitus Type 1, Hx Diabetes Mellitus Type 2, Hx Hyperthyroidism, Hx Hypothyroidism Renal/ Medical History: Denies: Hx End Stage Renal Disease, Hx Peritoneal Dialysis Malignancy Medical History: Denies Hx Bone Cancer, Denies Hx Brain Cancer, Denies Hx Colorectal Cancer, Denies Hx Leukemia, Denies Hx Liver Cancer, Denies Hx Lung Cancer, Denies Hx Lymphoma, Denies Hx Pancreatic Cancer, Denies Hx Renal (Kidney) Cancer, Denies Hx Skin Cancer GI Medical History: Denies: Hx Cirrhosis, Hx Crohn's Disease, Hx Diverticulitis, Hx Gastroesophageal Reflux Disease, Hx Hepatitis, Hx Hiatal Hernia, Hx Ulcerative Colitis Musculoskeletal Medical History: Denies Hx Arthritis, Denies Hx Fibromyalgia, Denies Hx Gout Skin Medical History: Denies Hx Eczema, Denies Hx Psoriasis Psychiatric Medical History: Reports: Hx Depression Traumatic Medical History: Denies: Hx Gunshot Wound, Hx Pneumothorax, Hx Traumatic Brain Injury Infectious Medical History: Denies: Hx C-Diff, Hx Hepatitis, Hx HIV, Hx MRSA, Hx VRE Past Surgical History: Reports: Other - Hernia - Immunizations Hx Diphtheria, Pertussis, Tetanus Vaccination: Yes Review of Systems - Review of Systems Constitutional: No symptoms reported EENT: No symptoms reported Cardiovascular: No symptoms reported Respiratory: See HPI Gastrointestinal: No symptoms reported Genitourinary: No symptoms reported Male Genitourinary: No symptoms reported Musculoskeletal: No symptoms reported Skin: No symptoms reported Hematologic/Lymphatic: No symptoms reported Neurological/Psychological: No symptoms reported Physical Exam - Vital signs Vitals: Temp Pulse Resp BP Pulse Ox 98.8 F 104 H 20 126/82 H 93 07/12/20 12:40 07/12/20 12:40 07/12/20 12:40 07/12/20 12:40 07/12/20 12:40 - Notes Notes: MEDICATIONS: I agree with the patient medications as charted by the RN. ALLERGIES: I agree with the allergies as charted by the RN. PAST MEDICAL HISTORY/PAST SURGICAL HISTORY: Reviewed and agree as charted by RN. SOCIAL HISTORY: Reviewed and agree as charted by RN. FAMILY HISTORY: No significant familial comorbid conditions directly related to patient complaint EXAM: Reviewed vital signs as charted by RN. PHYSICAL EXAMINATION:reviewed vital signs by RN GENERAL: Well-appearing, well-nourished and in no acute distress. HEAD: Atraumatic, normocephalic. EYES: Pupils equal round and reactive to light, extraocular movements intact, sclera anicteric, conjunctiva are normal. ENT: Nares patent, oropharynx clear without exudates. Moist mucous membranes. NECK: Normal range of motion, supple without lymphadenopathy LUNGS: Inspiratory and expiratory wheezing heard in all lobes HEART: Regular rate and rhythm without murmurs ABDOMEN: Soft, nontender, nondistended abdomen. No guarding, no rebound. No masses appreciated. Musculoskeletal: Normal range of motion, no pitting or edema. No cyanosis. NEUROLOGICAL: Cranial nerves grossly intact. Normal speech, normal gait. Normal sensory, motor exams PSYCH: Normal mood, normal affect. SKIN: Warm, Dry, normal turgor, no rashes or lesions noted. Course - Re-evaluation Re-evalutation: 07/12/20 16:17 Afebrile vital stable no distress. Nurses notes reviewed. CBC negative for leukocytosis or anemia, CMP negative for hepatic renal dysfunction. D-dimer negative, heart rate over 110, positive PERC rule. EKG sinus tachycardia, no STEMI. Troponin negative. Rapid influenza and strep negative. Covid pending. chest x-ray negative for any pneumonia, pneumothorax or abnormal findings. Patient received 1 g magnesium, 125 Solu-Medrol, 3 duo nebs. Patient still has inspiratory and expiratory wheezing. Patient ambulated around the unit on pulse oximeter, his pulse ox did not go above 92% and ranged from 88 to 92%. Patient does not wear oxygen at home. Patient still has inspiratory and expiratory wheezing after all interventions. consulted with hospitalist, Dr. Alexandre Ryder at 1610, he will accept him to the medical service for management of his asthma exacerbation. - Vital Signs Vital signs: Temp Pulse Resp BP Pulse Ox 98.4 F 110 H 18 122/69 94 07/12/20 18:06 07/12/20 18:06 07/12/20 18:06 07/12/20 18:06 07/12/20 18:06 - Laboratory Result Diagrams: 07/12/20 11:20 07/12/20 11:20 Laboratory results interpreted by me: 07/12/20 07/12/20 11:20 11:20 RBC 4.25 L MCV 105 H MCH 37.5 H RDW 14.1 H Eos % (Auto) 7.6 H BUN 6 L - Diagnostic Test Radiology reviewed: Image reviewed, Reports reviewed Radiology results interpreted by me: 07/12/20 15:10 Chest X-Ray 07/12/20 12:42 IMPRESSION: NO ACUTE RADIOGRAPHIC FINDING IN THE CHEST. - EKG Interpretation by Ks EKG shows normal: Sinus rhythm Rate: Tachycardia Rhythm: NSR Additional EKG results interpreted by ca: 07/12/20 14:57 Heart rate 108, sinus tachycardia, P axis 82, QRS axis 77, T axis 51. Interpreted by ER physician not this provider. No ST segment elevations, no STEMI Discharge - Discharge Clinical Impression: Respiratory distress Asthma exacerbation Qualifiers: Asthma severity: moderate Asthma persistence: persistent Qualified Code(s): J45.41 - Moderate persistent asthma with (acute) exacerbation Condition: Stable Disposition: ADMITTED INPATIENT Admitting Provider: Kwaku (Hospitalist) Unit Admitted: Medical Floor
[2020-07-12] MEDS ORDERED: MAGNESIUM SULFATE/D5W 1 GM/100 ML RTUPB IV ONE (13:19)
--- NOTE | 2020-07-12 13:33 | RADIOLOGY REPORT (SQ) ---
EXAM DESCRIPTION: CHEST SINGLE VIEW IMAGES COMPLETED DATE/TIME: 07/12/2020 1:20 pm REASON FOR STUDY: cough congestion COMPARISON: 05/03/2020 EXAM PARAMETERS: NUMBER OF VIEWS: One view. TECHNIQUE: Single frontal radiographic view of the chest acquired. RADIATION DOSE: NA LIMITATIONS: None. FINDINGS: LUNGS AND PLEURA: No opacities, masses or pneumothorax. No pleural effusion. MEDIASTINUM AND HILAR STRUCTURES: No masses. Contour normal. HEART AND VASCULAR STRUCTURES: Heart normal in size. Normal vasculature. BONES: No acute findings. HARDWARE: None in the chest. OTHER: No other significant finding. IMPRESSION: NO ACUTE RADIOGRAPHIC FINDING IN THE CHEST. TECHNICAL DOCUMENTATION: JOB ID: [id number] 2010 [employer]- All Rights Reserved Reading location - IP/workstation name: [email or web address]
[2020-07-12] MEDS: ALBUTEROL SULFATE 0.083% NEB 2.5 MG/3 ML AMPUL NEB SCH ×3 (13:47→23:58)
[2020-07-12 13:51] LABS: ABSOLUTE BASOPHILS # (AUTO) 0.1 10^3/uL (0.0-0.2); ABSOLUTE EOSINOPHILS # (AUTO) 0.3 10^3/uL (0.0-0.6); ABSOLUTE LYMPHOCYTES (AUTO) 0.8 10^3/uL (0.5-4.7); ABSOLUTE MONOCYTES (AUTO) 0.5 10^3/uL (0.1-1.4); ABSOLUTE NEUT (AUTO) 2.6 10^3/uL (1.7-8.2); BASOPHILS % (AUTO) 1.4 % (0-2); EOSINOPHILS % (AUTO) 7.6 % (0-6); HEMATOCRIT 44.5 % (37.9-51.0); HEMOGLOBIN 15.9 g/dL (13.5-17.0); LYMPHOCYTES % (AUTO) 18.4 % (13-45); MEAN CORPUSCULAR HEMOGLOBIN 37.5 pg (27.0-33.4); MEAN CORPUSCULAR HGB CONC 35.7 g/dL (32.0-36.0); MEAN CORPUSCULAR VOLUME 105 fl (80-97); MONOCYTES % (AUTO) 12.5 % (3-13); PLATELET COUNT 284 10^3/uL (150-450); RED BLOOD COUNT 4.25 10^6/uL (4.35-5.55); RED CELL DISTRIBUTION WIDTH 14.1 % (11.5-14.0); SEGMENTED NEUTROPHILS % (AUTO) 60.1 % (42-78); TOTAL CELLS COUNTED % (AUTO) 100 %; WHITE BLOOD COUNT 4.4 10^3/uL (4.0-10.5)
[2020-07-12 14:07] LABS: ALBUMIN 4.2 g/dL (3.5-5.0); ALKALINE PHOSPHATASE 55 U/L (38-126); ANION GAP 11 (5-19); ASPARTATE AMINO TRANSFERASE 29 U/L (17-59); BILIRUBIN,TOTAL 0.8 mg/dL (0.2-1.3); BLOOD UREA NITROGEN 6 mg/dL (7-20); CALCIUM 9.8 mg/dL (8.4-10.2); CARBON DIOXIDE 24 mmol/L (22-30); CHLORIDE 105 mmol/L (98-107); GLUCOSE 93 mg/dL (75-110); POTASSIUM 4.2 mmol/L (3.6-5.0); TOTAL PROTEIN 7.4 g/dL (6.3-8.2)
[2020-07-12 14:07] LABS: A TYPE INFLUENZA AG NEGATIVE (NEGATIVE); B INFLUENZA AG NEGATIVE (NEGATIVE)
[2020-07-12] MEDS ORDERED: NORMAL SALINE 1000 ML 1,000 ML IV ONE (16:06)
--- NOTE | 2020-07-12 16:37 | EKG REPORT ---
SEVERITY:- ABNORMAL ECG - SINUS TACHYCARDIA BIATRIAL ABNORMALITIES ST ELEVATION SUGGESTS PERICARDITIS : Confirmed by: Davon Petersen MD 12-Jul-2020 16:36:32
[2020-07-12] MEDS ORDERED: ALBUTEROL SULFATE 0.083% NEB 2.5 MG/3 ML AMPUL NEB PRN (17:29)
[2020-07-12] MEDS ORDERED: ONDANSETRON HCL INJ/PF 4 MG/2 ML SDV IV PRN (17:29)
[2020-07-12] MEDS ORDERED: MAG HYDROX/AL HYDROX/SIMETH SUSP 30 ML UDCUP PO PRN (17:29)
[2020-07-12] MEDS ORDERED: AZITHROMYCIN 250 MG TABLET PO ONE (17:33)
--- NOTE | 2020-07-12 18:02 | PDOC H&P ---
History of Present Illness Admission Date/PCP: ALEX BAUGH DO Patient complains of: Shortness of breath History of Present Illness: DANIEL ONEILL is a 35 year old male with history of mild to moderate persistent asthma, prior intubations due to asthma exacerbation, who presents to the hospital with complaint of acute onset shortness of breath which began 2 to 3 days ago associated with productive cough. Denies any chest pain fevers or chills. His symptoms progressed and he became dyspneic severely last night and could not catch his breath prompting him to come to the hospital. He denies any sick contacts or COVID exposures. Ran out of his inhalers few weeks ago. Endorses 2-3 exacerbations yearly and often exacerbated by seasonal changes. Past Medical History Cardiac Medical History: Denies: Atrial Fibrillation, Congestive Heart Failure, Coronary Artery Disease, DVT, Myocardial Infarction, Hyperlipidema, Hypertension, Peripheral Vascular Disease, Pulmonary Embolism, Heart Murmur Pulmonary Medical History: Reports: Asthma, Bronchitis, Chronic Obstructive Pulmonary Disease (COPD) Neurological Medical History: Denies: Migraine, Seizures Endocrine Medical History: Denies: Diabetes Mellitus Type 1, Diabetes Mellitus Type 2, Hyperthyroidism, Hypothyroidism Renal/ Medical History: Denies: End Stage Renal Disease Malignancy Medical History: Denies: Bone Cancer, Brain Cancer, Breast Cancer, Cervical Cancer, Colorectal Cancer, Leukemia, Liver Cancer, Lung Cancer, Lymphoma, Ovarian Cancer, Pancreatic Cancer, Renal (Kidney) Cancer, Skin Cancer GI Medical History: Denies: Cirrhosis, Crohn's Disease, Diverticulitis, Gastroesophageal Reflux Disease, Hepatitis, Hiatal Hernia, Ulcerative Colitis Musculoskeltal Medical History: Denies: Arthritis, Fibromyalgia, Gout Skin Medical History: Denies: Eczema, Psoriasis Psychiatric Medical History: Reports: Depression Traumatic Medical History: Denies: Gunshot Wound, Pneumothorax, Traumatic Brain Injury Infectious Medical History: Denies: Clostridium Difficile, HIV, Methicillin-Resistant Staph Aureus, Vancomycin-Resistant Enterococci Past Surgical History Past Surgical History: Reports: Other - Hernia Social History Information Source: Patient Smoking Status: Never Smoker Frequency of Alcohol Use: Social Hx Recreational Drug Use: No Drugs: Cocaine, Marijuana Hx Prescription Drug Abuse: No - Advance Directive Resuscitation Status: Full Code Family History Family History: Reviewed & Not Pertinent, COPD Parental Family History Reviewed: Yes Children Family History Reviewed: NA Sibling(s) Family History Reviewed.: Yes Medication/Allergy Home Medications: Albuterol Sulfate [Proair HFA] 1 - 2 puff IH Q4 PRN #1 inhaler 07/31/17 Fluticasone/Salmeterol [Advair 250-50 Diskus 14 Dose/Diskus] 1 inh IH Q12 30 Days #1 inhaler 07/31/17 Inhaler, Assist Devices [Compact Space Chamber Plus] 1 each MC PRN PRN #1 spacer 07/31/17 Ipratropium/Albuterol Sulfate [Duoneb 3 ml Ampul] 3 ml NEB [id number] PRN 30 Days #120 [email or web address] 07/31/17 Albuterol Sulfate [Albuterol Sulfate 5mg/1 mL] 5 mg PO Q6 #20 ml 08/09/19 Fluticasone/Salmeterol [Advair 250-50 Diskus 14 Dose/Diskus] 1 inh IH Q12H #1 inhaler 08/09/19 Albuterol Sulfate [Ventolin 0.083% Neb 2.5 mg/3 mL Ampul] 2.5 mg NEB Q4 PRN #21 [email or web address] 10/16/19 Albuterol Sulfate [Proair HFA Inhalation Aerosol 8.5 gm MDI] 2 puff IH Q4H PRN #1 mdi 11/04/19 Albuterol Sulfate [Proair Respiclick] 90 mcg IH Q6 PRN #1 [email or web address] 05/03/20 Prednisone [Deltasone 20 mg Tablet] 40 mg PO DAILY #10 tablet 05/03/20 Allergies/Adverse Reactions: levofloxacin [From Levaquin] Allergy (Severe, Verified 07/12/20 13:07) Review of Systems Constitutional: ABSENT: chills, fatigue, fever(s) Eyes: ABSENT: visual disturbances Ears: ABSENT: hearing changes Nose, Mouth, and Throat: ABSENT: headache(s), sore throat Cardiovascular: ABSENT: chest pain, edema Respiratory: PRESENT: cough, dyspnea, sputum. ABSENT: hemoptysis Gastrointestinal: ABSENT: abdominal pain, diarrhea, melena, nausea, vomiting Genitourinary: ABSENT: difficulty urinating, dysuria Integumentary: ABSENT: diaphoresis Neurological: ABSENT: dizziness Endocrine: ABSENT: polyuria Hematologic/Lymphatic: ABSENT: easy bleeding Physical Exam Vital Signs: Temp Pulse Resp BP Pulse Ox 98.7 F 104 H 19 128/78 H 94 11/03/20 16:00 07/12/20 12:40 07/12/20 16:00 07/12/20 16:00 07/12/20 16:00 Intake & Output 07/11/20 07/12/20 07/13/20 06:59 06:59 06:59 Intake Total 1100 Balance 1100 Weight 84.822 kg General appearance: PRESENT: no acute distress, cooperative Head exam: PRESENT: normocephalic Mouth exam: PRESENT: neck supple Neck exam: ABSENT: JVD Respiratory exam: PRESENT: symmetrical, unlabored, wheezes. ABSENT: accessory muscle use, retraction, tachypnea Cardiovascular exam: PRESENT: +S1, +S2, tachycardia. ABSENT: irregular rhythm GI/Abdominal exam: PRESENT: soft. ABSENT: rebound, rigid, tenderness Extremities exam: ABSENT: pedal edema, +1 edema, +2 edema Neurological exam: PRESENT: alert, awake, oriented to person, oriented to place, oriented to time, oriented to situation Psychiatric exam: ABSENT: agitated, anxious Focused psych exam: ABSENT: pressured speech Skin exam: ABSENT: jaundice Results Laboratory Results: 07/12/20 11:20 07/12/20 11:20 07/12/20 07/12/20 11:20 11:20 WBC 4.4 RBC 4.25 L Hgb 15.9 Hct 44.5 MCV 105 H MCH 37.5 H MCHC 35.7 RDW 14.1 H Plt Count 284 Seg Neutrophils % 60.1 Sodium 140.0 Potassium 4.2 Chloride 105 Carbon Dioxide 24 Anion Gap 11 BUN 6 L Creatinine 0.73 Est GFR ( Amer) > 60 Glucose 93 Calcium 9.8 Total Bilirubin 0.8 AST 29 Alkaline Phosphatase 55 Total Protein 7.4 Albumin 4.2 07/12/20 11:20 Troponin I < 0.012 Impressions: Chest X-Ray 07/12/20 12:42 IMPRESSION: NO ACUTE RADIOGRAPHIC FINDING IN THE CHEST. Assessment and Plan - Diagnosis (1) Asthma exacerbation Qualifiers: Asthma severity: moderate Asthma persistence: persistent Qualified Code(s): J45.41 - Moderate persistent asthma with (acute) exacerbation Is this a current diagnosis for this admission?: Yes Plan: Chest x-ray is reviewed which shows no evidence of pneumonia. Acute asthma exacerbation will be treated with frequent albuterol nebulizer treatments, steroids. Has received Solu-Medrol in the ER. Admitted to observation Will need rescue inhaler and ICS prescriptions upon discharge. (2) Hypoxia Is this a current diagnosis for this admission?: Yes Plan: Noted to be 88% on room air in the ER. Currently on my assessment patient was comfortable on room air. Will observe for today. We will keep on room air. Suspect acute hypoxia secondary to acute exacerbation of asthma. (3) Acute bronchitis Qualifiers: Bronchitis organism: unspecified organism Qualified Code(s): J20.9 - Acute bronchitis, unspecified Is this a current diagnosis for this admission?: Yes Plan: Likely secondary to season change or viral. Flu test is negative. Patient was swabbed for Covid in the ER. (4) Tachycardia Is this a current diagnosis for this admission?: Yes Plan: Secondary to respiratory distress. Will monitor. - Time Time Spent with patient: 35 or more minutes Anticipated Discharge Disposition: Home, Self Care Anticipated Discharge Timeframe: within 36 hours
[2020-07-13] MEDS: ALBUTEROL SULFATE 0.083% NEB 2.5 MG/3 ML AMPUL NEB SCH ×2 (04:02→08:20)
[2020-07-13] MEDS ORDERED: PREDNISONE 20 MG TABLET PO SCH (10:00)
--- NOTE | 2020-07-13 11:17 | PDOC DISCHARGE SUMMARY ---
Impression - Admit/DC Date/PCP Admission Date/Primary Care Provider: 07/12/20 18:15 ALEX BAUGH DO Discharge Date: 07/13/20 - Discharge Diagnosis (1) Asthma exacerbation Is this a current diagnosis for this admission?: Yes (2) Hypoxia Is this a current diagnosis for this admission?: Yes (3) Acute bronchitis Is this a current diagnosis for this admission?: Yes (4) Tachycardia Is this a current diagnosis for this admission?: Yes - Additional Information Resuscitation Status: Full Code Discharge Diet: Regular Discharge Activity: Activity As Tolerated Referrals: ALEX BAUGH DO [Primary Care Provider] - Follow up as needed Prescriptions: Prednisone [Deltasone 20 mg Tablet] 40 mg PO DAILY 4 Days #8 tablet Fluticasone Propionate [Flovent Hfa 44 Mcg Inhalation Aerosol 10.6 gm] 2 puff IH BID 30 Days #1 inhaler Albuterol Sulfate [Proair Respiclick] 2 puff IH Q4HP PRN #1 inhaler PRN Reason: Shortness Of Breath Home Medications: Albuterol Sulfate [Proair Respiclick] 2 puff IH Q4HP PRN #1 inhaler 07/13/20 Fluticasone Propionate [Flovent Hfa 44 Mcg Inhalation Aerosol 10.6 gm] 2 puff IH BID 30 Days #1 inhaler 07/13/20 Prednisone [Deltasone 20 mg Tablet] 40 mg PO DAILY 4 Days #8 tablet 07/13/20 History of Present Illiness History of Present Illness: DANIEL ONEILL is a 35 year old male with history of mild to moderate persistent asthma, prior intubations due to asthma exacerbation, who presents to the hospital with complaint of acute onset shortness of breath which began 2 to 3 days ago associated with productive cough. Denies any chest pain fevers or chills. His symptoms progressed and he became dyspneic severely last night and could not catch his breath prompting him to come to the hospital. He denies any sick contacts or COVID exposures. Ran out of his inhalers few weeks ago. Endorses 2-3 exacerbations yearly and often exacerbated by seasonal changes. Hospital Course Hospital Course: Patient was admitted to the hospital for treatment of acute asthma exacerbation thought to be secondary to acute bronchitis. He was notably having significant wheezing, tachycardic and tachypneic on presentation. Vital signs also revealed hypoxia with SPO2 dropping below 90% on room air. This is significantly low for patient's age especially as he does not use oxygen at baseline. His hypoxia was thought to be secondary to his acute asthma exacerbation. Chest x-ray revealed no evidence of pneumonia. D-dimer was negative. Patient received Solu-Medrol in the ER and started on nebulizer treatments. He was admitted and placed on frequent nebulizer treatments as well as prednisone. He is doing much better today and he has stayed off oxygen throughout last night and this morning. Pulse ox this morning is in the mid to high 90s on room air. Patient feels a lot better and is physical exam findings have improved. He is ready to be discharged home. It is suspected that he running out of his inhalers may have contributed to his asthma flareup. I will give him prescriptions for Flovent and albuterol as well as prednisone. He is to follow-up with his primary care provider for further care. Physical Exam Vital Signs: Temp Pulse Resp BP Pulse Ox 98.4 F 82 16 117/89 H 95 07/13/20 10:00 07/13/20 08:35 07/13/20 08:35 07/12/20 23:26 07/13/20 08:35 Intake & Output 07/12/20 07/13/20 07/14/20 06:59 06:59 06:59 Intake Total 1322 Balance 1322 Weight 84.8 kg General appearance: PRESENT: no acute distress, cooperative Neck exam: ABSENT: JVD Respiratory exam: PRESENT: symmetrical, unlabored, wheezes - mild but significantly improved from yesterday. ABSENT: accessory muscle use, retraction, rhonchi, stridor, tachypnea Cardiovascular exam: PRESENT: RRR, +S1, +S2. ABSENT: tachycardia Neurological exam: PRESENT: alert, awake Results Laboratory Results: WBC 4.4 10^3/uL (4.0-10.5) 07/12/20 11: RBC 4.25 10^6/uL (4.35-5.55) L 07/12/20 11: Hgb 15.9 g/dL (13.5-17.0) 07/12/20 11: Hct 44.5 % (37.9-51.0) 07/12/20 11: MCV 105 fl (80-97) H 07/12/20 11:20 MCH 37.5 pg (27.0-33.4) H 07/12/20 11:20 MCHC 35.7 g/dL (32.0-36.0) 07/12/20 11:20 RDW 14.1 % (11.5-14.0) H 07/12/20 11:20 Plt Count 284 10^3/uL (150-450) 07/12/20 11:20 Lymph % (Auto) 18.4 % (13-45) 07/12/20 11:20 [place] % (Auto) 12.5 % (3-13) 07/12/20 11:20 Eos % (Auto) 7.6 % (0-6) H 07/12/20 11:20 Baso % (Auto) 1.4 % (0-2) 07/12/20 11:20 Absolute Neuts (auto) 2.6 10^3/uL (1.7-8.2) 07/12/20 11:20 Absolute Lymphs (auto) 0.8 10^3/uL (0.5-4.7) 07/12/20 11:20 Absolute Monos (auto) 0.5 10^3/uL (0.1-1.4) 07/12/20 11:20 Absolute Eos (auto) 0.3 10^3/uL (0.0-0.6) 07/12/20 11:20 Absolute Basos (auto) 0.1 10^3/uL (0.0-0.2) 07/12/20 11:20 Seg Neutrophils % 60.1 % (42-78) 07/12/20 11:20 D-Dimer 0.38 ug/mL (0.00-0.50) 07/12/20 13:20 Sodium 140.0 mmol/L (137-145) 07/12/20 11:20 Potassium 4.2 mmol/L (3.6-5.0) 07/12/20 11:20 Chloride 105 mmol/L (98-107) 07/12/20 11:20 Carbon Dioxide 24 mmol/L (22-30) 07/12/20 11:20 Anion Gap 11 (5-19) 07/12/20 11:20 BUN 6 mg/dL (7-20) L 07/12/20 11:20 Creatinine 0.73 mg/dL (0.52-1.25) 07/12/20 11:20 Est GFR ( Amer) > 60 (>60) 07/12/20 11:20 Est GFR (MDRD) Non-Af > 60 (>60) 07/12/20 11:20 Glucose 93 mg/dL (75-110) 07/12/20 11:20 Calcium 9.8 mg/dL (8.4-10.2) 07/12/20 11:20 Total Bilirubin 0.8 mg/dL (0.2-1.3) 07/12/20 11:20 Direct Bilirubin 0.0 mg/dL (0.0-0.4) 07/12/20 11:20 Neonat Total Bilirubin Not Reportable 07/12/20 11:20 Neonat Direct Bilirubin Not Reportable 07/12/20 11:20 Neonat Indirect Bili Not Reportable 07/12/20 11:20 AST 29 U/L (17-59) 07/12/20 11:20 ALT 15 U/L (<50) 07/12/20 11:20 Alkaline Phosphatase 55 U/L (38-126) 07/12/20 11:20 Troponin I < 0.012 ng/mL 07/12/20 11:20 Total Protein 7.4 g/dL (6.3-8.2) 07/12/20 11:20 Albumin 4.2 g/dL (3.5-5.0) 07/12/20 11:20 COVID-19 Source See comment 07/12/20 13:04 Influenza A (Rapid) NEGATIVE (NEGATIVE) 07/12/20 13:07 Influenza B (Rapid) NEGATIVE (NEGATIVE) 07/12/20 13:07 Group A Strep Rapid NEGATIVE (NEGATIVE) 07/12/20 13:07 07/12/20 11:20 Troponin I < 0.012 Impressions: Chest X-Ray 07/12/20 12:42 IMPRESSION: NO ACUTE RADIOGRAPHIC FINDING IN THE CHEST. Plan Time Spent: Less than 30 Minutes Stroke Is this a Stroke Patient?: No Acute Heart Failure Is this a Heart Failure Patient?: No
[2020-07-13 12:07] VITALS: BP 148/94
[2020-07-13] MEDS ORDERED: AZITHROMYCIN 250 MG TABLET PO SCH (18:00)
== END 2020-07-13 12:25 | disposition home or self-care (01) ==
LOC: ER 12:35 → EH 18:15 → 3N 23:16
PROVIDERS: ADMIT Internal Medicine; ATTEND Internal Medicine
DX: J45.41 Moderate persistent asthma with (acute) exacerbation (principal); R09.02 Hypoxemia; R00.0 Tachycardia, unspecified; J20.9 Acute bronchitis, unspecified; Z20.828 Contact with and (suspected) exposure to other viral communicable diseases; Z79.899 Other long term (current) drug therapy; Z82.5 Family history of asthma and other chronic lower respiratory diseases
CPT/HCPCS: 93005; 94640 ×4; 99285; 96361; 96375; 96365; 36415; 87070 ×2; 87205; 87880; 85025; 87635; 87077; 80053; 84484; 85379; 87804; 71045; 93010; G0378 ×3; Q0144; J2930; J3475; J7512; J3490; J7030; J7613 ×2; C9803

== ENCOUNTER 2020-10-03 18:54 | Observation (INO) | payer MEDICAID ==
[2020-10-03] MEDS ORDERED: METHYLPREDNISOLONE INJ 125 MG/2 ML SDV IV ONE (19:12)
[2020-10-03] MEDS ORDERED: TERBUTALINE SULFATE INJ/PF 1 MG/1 ML SDV SUBCUT ONE (19:14)
[2020-10-03] MEDS: MAGNESIUM SULFATE/D5W 1 GM/100 ML RTUPB IV SCH ×2 (19:31→20:39)
[2020-10-03 19:46] LABS: ABSOLUTE EOSINOPHILS # (AUTO) 0.4 10^3/uL (0.0-0.6); ABSOLUTE LYMPHOCYTES (AUTO) 1.5 10^3/uL (0.5-4.7); ABSOLUTE MONOCYTES (AUTO) 0.5 10^3/uL (0.1-1.4); ABSOLUTE NEUT (AUTO) 2.8 10^3/uL (1.7-8.2); BASOPHILS % (AUTO) 0.3 % (0-2); EOSINOPHILS % (AUTO) 6.9 % (0-6); HEMATOCRIT 43.7 % (37.9-51.0); LYMPHOCYTES % (AUTO) 29.3 % (13-45); MEAN CORPUSCULAR HEMOGLOBIN 36.3 pg (27.0-33.4); MEAN CORPUSCULAR HGB CONC 34.3 g/dL (32.0-36.0); MEAN CORPUSCULAR VOLUME 106 fl (80-97); MONOCYTES % (AUTO) 9.9 % (3-13); PLATELET COUNT 379 10^3/uL (150-450); RED BLOOD COUNT 4.13 10^6/uL (4.35-5.55); SEGMENTED NEUTROPHILS % (AUTO) 53.6 % (42-78); TOTAL CELLS COUNTED % (AUTO) 100 %; WHITE BLOOD COUNT 5.2 10^3/uL (4.0-10.5)
--- NOTE | 2020-10-03 19:46 | ER Document Report ---
Entered by JENNIFER WOMACK SCRIBE 10/03/201906 Acting as scribe for:DOV CANELA DO ED Respiratory Problem - General Chief Complaint: Breathing Difficulty Stated Complaint: DIFFICULTY BREATHING Mode of Arrival: Ambulatory Information source: Patient Notes: This 35-year-old male patient presents to the emergency department today in moderate respiratory distress. He has a history of asthma and he mentions that he feels like he is having an exacerbation of his asthma. He had an oxygen saturation of 86% on room air on arrival here. He reports that the last time he was on steroids was a few months ago. He denies a fever or cough. He has no concerns for COVID-19. TRAVEL OUTSIDE OF THE [place] IN LAST 30 DAYS: No - Related Data Allergies/Adverse Reactions: levofloxacin [From Levaquin] Allergy (Severe, Verified 07/12/20 13:07) Past Medical History - General Information source: Patient - Social History Smoking Status: Never Smoker Cigarette use (# per day): No Frequency of alcohol use: None Drug Abuse: None Lives with: Family Family History: Reviewed & Not Pertinent, COPD Pulmonary Medical History: Reports: Hx Asthma, Hx Bronchitis, Hx COPD Psychiatric Medical History: Reports: Hx Depression Past Surgical History: Reports: Other - Hernia - Immunizations Hx Diphtheria, Pertussis, Tetanus Vaccination: Yes Review of Systems - Review of Systems Constitutional: No symptoms reported EENT: No symptoms reported Cardiovascular: No symptoms reported Respiratory: See HPI, Short of breath, Wheezing Gastrointestinal: No symptoms reported Genitourinary: No symptoms reported Male Genitourinary: No symptoms reported Musculoskeletal: No symptoms reported Skin: No symptoms reported Hematologic/Lymphatic: No symptoms reported Neurological/Psychological: No symptoms reported -: Yes All other systems reviewed and negative Physical Exam - Vital signs Vitals: Temp Pulse Resp BP Pulse Ox 99.2 F 109 H 22 H 134/95 H 89 L 10/03/20 18:59 10/03/20 18:59 10/03/20 18:59 10/03/20 18:59 10/03/20 18:59 - Notes Notes: Physical Exam: General: Alert, appears short of breath. HEENT: Normocephalic. Atraumatic. PERRL. Extraocular movements intact. Oropharynx clear. Neck: Supple. Non-tender. Respiratory: Moderate respiratory distress. Poor air movement, diminished in the bases bilaterally. Wheezing throughout. Cardiovascular: Regular rate and rhythm. Abdominal: Normal Inspection. Non-tender. No distension. Normal Bowel Sounds. Back: No gross abnormalities. Extremities: Moves all four extremities. Upper extremities: Normal inspection. Normal ROM. Lower extremities: Normal inspection. No edema. Normal ROM. Neurological: Normal cognition. AAOx4. Normal speech. Psychological: Normal affect. Normal Mood. Skin: Warm. Dry. Normal color. Course - Vital Signs Vital signs: Temp Pulse Resp BP Pulse Ox 98.4 F 109 H 16 141/94 H 94 10/04/20 01:00 10/03/20 18:59 10/04/20 01:01 10/04/20 01:00 10/04/20 01:01 - Laboratory Results Result Diagrams: 10/03/20 19:25 10/03/20 19:25 Laboratory Results Interpreted: 10/03/20 10/03/20 19:25 19:25 RBC 4.13 L MCV 106 H MCH 36.3 H Eos % (Auto) 6.9 H Direct Bilirubin 0.5 H Critical Laboratory Results Reviewed: No Critical Results - Radiology Results Critical Radiology Results Reviewed: No Critical Results - EKG Interpretation by Me EKG shows normal: Sinus rhythm Rate: Tachycardia Rhythm: NSR - Sinus Tachy Nl [place] [address] elevation or depression repol ab my interpretation. Critical Care Note - Critical Care Note Total time excluding time spent on procedures (mins): 30 Discharge - Discharge Clinical Impression: Asthma exacerbation Qualifiers: Asthma severity: moderate Asthma persistence: persistent Qualified Code(s): J45.41 - Moderate persistent asthma with (acute) exacerbation Acute respiratory failure Qualifiers: Respiratory failure complication: hypoxia Qualified Code(s): J96.01 - Acute respiratory failure with hypoxia Condition: Stable Disposition: ADMITTED OBSERVATION Admitting Provider: Arminda (Hospitalist) Unit Admitted: Medical Floor I personally performed the services described in the documentation, reviewed and edited the documentation which was dictated to the scribe in my presence, and it accurately records my words and actions.
--- NOTE | 2020-10-03 19:59 | RADIOLOGY REPORT (SQ) ---
EXAM DESCRIPTION: CHEST SINGLE VIEW IMAGES COMPLETED DATE/TIME: 10/03/2020 7:51 pm REASON FOR STUDY: chest COMPARISON: 07/12/2020 EXAM PARAMETERS: NUMBER OF VIEWS: One view. TECHNIQUE: Single frontal radiographic view of the chest acquired. RADIATION DOSE: NA LIMITATIONS: None. FINDINGS: LUNGS AND PLEURA: Hyperexpansion of the lungs. No acute infiltrate or effusion. No mass. MEDIASTINUM AND HILAR STRUCTURES: No masses. Contour normal. HEART AND VASCULAR STRUCTURES: Heart normal in size. Normal vasculature. BONES: No acute findings. HARDWARE: None in the chest. OTHER: No other significant finding. IMPRESSION: There appear to be chronic lung changes. No acute cardiopulmonary findings. TECHNICAL DOCUMENTATION: JOB ID: [id number] 2010 [employer]- All Rights Reserved Reading location - IP/workstation name: [email or web address]
[2020-10-03 20:04] LABS: ALBUMIN 4.3 g/dL (3.5-5.0); ALKALINE PHOSPHATASE 44 U/L (38-126); ANION GAP 9 (5-19); ASPARTATE AMINO TRANSFERASE 43 U/L (17-59); BILIRUBIN,DIRECT 0.5 mg/dL (0.0-0.4); BLOOD UREA NITROGEN 7 mg/dL (7-20); CALCIUM 9.4 mg/dL (8.4-10.2); CARBON DIOXIDE 27 mmol/L (22-30); CHLORIDE 104 mmol/L (98-107); GLUCOSE 85 mg/dL (75-110); POTASSIUM 4.6 mmol/L (3.6-5.0); TOTAL PROTEIN 7.8 g/dL (6.3-8.2)
[2020-10-03] MEDS ORDERED: IPRATROPIUM/ALBUTEROL 0.5-2.5 MG/3 ML AMPUL NEB ONE (22:18)
[2020-10-03] MEDS ORDERED: ALBUTEROL SULFATE 0.083% NEB 2.5 MG/3 ML AMPUL NEB ONE (22:19)
[2020-10-04] MEDS ORDERED: IPRATROPIUM/ALBUTEROL 0.5-2.5 MG/3 ML AMPUL NEB PRN (00:57)
--- NOTE | 2020-10-04 01:06 | PDOC H&P ---
History of Present Illness Admission Date/PCP: ALEX BAUGH DO History of Present Illness: DANIEL ONEILL is a 35 year old male with a history of asthma who says he still smokes a few cigarettes a day who uses pretty much just a ProAir inhaler at home for his asthma, and occasionally has Flovent but does not use it on any sort of regular basis, who presents with 2 days of worsening shortness of breath. He ran out of his inhaler a couple of days ago. His significant other says that this happens to him every time he runs out of his inhaler, and he will get short of breath and then usually a couple of days after he runs out he winds up coming to the emergency room. He has a doctor but does not always follow-up like he should. His labs and chest x-ray were unremarkable. His lungs did appear hyperinflated but there were no sign of any opacities. His oxygenation on room air was in the upper 80s and after he got some Solu-Medrol and a breathing treatment and a couple liters of oxygen he improved to the low 90s. Past Medical History Cardiac Medical History: Denies: Atrial Fibrillation, Congestive Heart Failure, Coronary Artery Disease, DVT, Myocardial Infarction, Hyperlipidema, Hypertension, Peripheral Vascular Disease, Pulmonary Embolism, Heart Murmur Pulmonary Medical History: Reports: Asthma, Bronchitis, Chronic Obstructive Pulmonary Disease (COPD) Neurological Medical History: Denies: Migraine, Seizures Endocrine Medical History: Denies: Diabetes Mellitus Type 1, Diabetes Mellitus Type 2, Hyperthyroidism, Hypothyroidism Renal/ Medical History: Denies: End Stage Renal Disease Malignancy Medical History: Denies: Bone Cancer, Brain Cancer, Breast Cancer, Cervical Cancer, Colorectal Cancer, Leukemia, Liver Cancer, Lung Cancer, Lymphoma, Ovarian Cancer, Pancreatic Cancer, Renal (Kidney) Cancer, Skin Cancer GI Medical History: Denies: Cirrhosis, Crohn's Disease, Diverticulitis, Gastroesophageal Reflux Disease, Hepatitis, Hiatal Hernia, Ulcerative Colitis Musculoskeltal Medical History: Denies: Arthritis, Fibromyalgia, Gout Skin Medical History: Denies: Eczema, Psoriasis Psychiatric Medical History: Reports: Depression Traumatic Medical History: Denies: Gunshot Wound, Pneumothorax, Traumatic Brain Injury Infectious Medical History: Denies: Clostridium Difficile, HIV, Methicillin-Resistant Staph Aureus, Vanco mycin-Resistant Enterococci Past Surgical History Past Surgical History: Reports: Other - Hernia Social History Lives with: Family Smoking Status: Never Smoker Frequency of Alcohol Use: None Hx Recreational Drug Use: No Drugs: Cocaine, Marijuana Hx Prescription Drug Abuse: No Family History Family History: Reviewed & Not Pertinent, COPD Parental Family History Reviewed: Yes Children Family History Reviewed: Yes Sibling(s) Family History Reviewed.: Yes Medication/Allergy Home Medications: Albuterol Sulfate [Proair Respiclick] 2 puff IH Q4HP PRN #1 inhaler 07/13/20 Fluticasone Propionate [Flovent Hfa 44 Mcg Inhalation Aerosol 10.6 gm] 2 puff IH BID 30 Days #1 inhaler 07/13/20 Prednisone [Deltasone 20 mg Tablet] 40 mg PO DAILY 4 Days #8 tablet 07/13/20 Allergies/Adverse Reactions: levofloxacin [From Levaquin] Allergy (Severe, Verified 07/12/20 13:07) Review of Systems All systems: reviewed and no additional remarkable complaints except as stated - All systems were reviewed and were negative except as noted in the HPI Physical Exam Vital Signs: Temp Pulse Resp BP Pulse Ox 99.2 F 109 H 14 128/91 H 95 10/03/20 18:59 10/03/20 18:59 10/04/20 00:00 10/04/20 00:00 10/04/20 00:00 Intake & Output 10/02/20 10/03/20 10/04/20 06:59 06:59 06:59 Intake Total 200 Balance 200 General appearance: PRESENT: no acute distress, cooperative, disheveled Head exam: PRESENT: atraumatic, normocephalic Eye exam: PRESENT: EOMI, PERRLA. ABSENT: conjunctival injection, nystagmus, scl eral icterus Ear exam: PRESENT: normal external ear exam Mouth exam: PRESENT: moist, neck supple Throat exam: ABSENT: post pharyngeal erythema Neck exam: PRESENT: full ROM. ABSENT: carotid bruit, JVD, lymphadenopathy, meningismus, tenderness, thyromegaly Respiratory exam: PRESENT: prolonged expiratory phas, symmetrical, unlabored, wheezes - Predominantly on the left. ABSENT: accessory muscle use, chest wall tenderness, crackles, rhonchi, tachypnea Cardiovascular exam: PRESENT: RRR, +S1, +S2 Pulses: PRESENT: normal carotid pulses Vascular exam: PRESENT: normal capillary refill GI/Abdominal exam: PRESENT: normal bowel sounds, soft. ABSENT: distended, guarding, rebound, tenderness Extremities exam: ABSENT: clubbing, pedal edema Musculoskeletal exam: PRESENT: normal inspection. ABSENT: deformity Neurological exam: PRESENT: awake, oriented to person, oriented to place, oriented to situation, CN II-XII grossly intact. ABSENT: motor sensory deficit Psychiatric exam: PRESENT: flat affect Skin exam: PRESENT: dry, warm Results Laboratory Results: 10/03/20 19:25 10/03/20 19:25 10/03/20 10/03/20 19: 19:25 WBC 5.2 RBC 4.13 L Hgb 15.0 Hct 43.7 MCV 106 H MCH 36.3 H MCHC 34.3 RDW 14.0 Plt Count 379 Seg Neutrophils % 53.6 Sodium 139.7 Potassium 4.6 Chloride 104 Carbon Dioxide 27 Anion Gap 9 BUN 7 Creatinine 0.63 Est GFR ( Amer) > 60 Glucose 85 Calcium 9.4 Total Bilirubin 1.0 AST 43 Alkaline Phosphatase 44 Total Protein 7.8 Albumin 4.3 Impressions: Chest X-Ray 10/03/20 19:09 IMPRESSION: There appear to be chronic lung changes. No acute cardiopulmonary findings. Assessment and Plan - Diagnosis (1) Acute respiratory failure Qualifiers: Respiratory failure complication: hypoxia Is this a current diagnosis for this admission?: Yes (2) Asthma exacerbation Qualifiers: Asthma severity: moderate Asthma persistence: persistent Qualified Code(s): J45.41 - Moderate persistent asthma with (acute) exacerbation Is this a current diagnosis for this admission?: Yes - Plan Summary Summary: I think he is going to turn around fairly quickly with some steroids and some breathing treatments. I strongly encouraged him to quit smoking. He should probably be on a maintenance medication for his asthma on a daily basis in addition to his as needed albuterol inhaler. We will give him a couple more doses of steroids and some breathing treatments and see how he does, he should not be in in line for a prolonged hospitalization. - Time Time Spent with patient: 35 or more minutes Anticipated Discharge Disposition: Home, Self Care Anticipated Discharge Timeframe: within 48 hours - Inpatient Certification Based on my medical assessment, after consideration of the patient's comorbidities, presenting symptoms, or acuity I expect that the services needed warrant INPATIENT care.: Yes I certify that my determination is in accordance with my understanding of Medicare's requirements for reasonable and necessary INPATIENT services [42 CFR 412.3e].: Yes Medical Necessity: Failure to Improve With Outpatient Therapy, Significant Comorbidiites Make Outpatient Treatment Too Risky, Need Close Monitoring Due to Risk of Patient Decompensation, Need For Continuous Telemetry Monitoring, Need for Nebulizer Therapy and Monitoring of Response, Risk of Complication if Not Cared For in Hospital
[2020-10-04] MEDS: METHYLPREDNISOLONE INJ 40 MG/1 ML SDV IV SCH ×2 (02:35→09:43)
--- NOTE | 2020-10-04 09:21 | EKG REPORT ---
SEVERITY:- ABNORMAL ECG - SINUS TACHYCARDIA : Confirmed by: Davon Petersen MD 04-Oct-2020 09:20:35
[2020-10-04 12:58] VITALS: BP 117/88
--- NOTE | 2020-10-04 19:46 | PDOC DISCHARGE SUMMARY ---
Impression - Admit/DC Date/PCP Admission Date/Primary Care Provider: 10/04/20 01:36 ALEX BAUGH DO Discharge Date: 10/04/20 - Discharge Diagnosis (1) Acute respiratory failure Is this a current diagnosis for this admission?: Yes (2) Asthma exacerbation Is this a current diagnosis for this admission?: Yes (3) Tobacco dependence Is this a current diagnosis for this admission?: Yes - Additional Information Resuscitation Status: Full Code Discharge Diet: Regular Discharge Activity: Activity As Tolerated, Balance Activity w/Rest Referrals: ALEX BAUGH DO [Primary Care Provider] - 10/12/20 3:00 pm (Follow up within 1 week.) Prescriptions: Prednisone [Deltasone 20 mg Tablet] 20 mg PO ASDIR PRN #20 tablet PRN Reason: Fluticasone Propionate [Flovent Hfa 44 Mcg Inhalation Aerosol 10.6 gm] 2 puff IH BID #1 inhaler Nicotine [Nicoderm 7 mg/24 Hr Transdermal Patch] 1 patch TD DAILY #30 patch.[email or web address] Albuterol Sulfate [Proair Respiclick] 2 puff IH Q4HP PRN #1 PRN Reason: Shortness Of Breath Salmeterol Xinafoate [Serevent Diskus 50 Mcg/Dose 28 Dose/Diskus] 50 mcg IH Q12 #1 each Home Medications: Albuterol Sulfate [Proair Respiclick] 2 puff IH Q4HP PRN #1 10/04/20 Fluticasone Propionate [Flovent Hfa 44 Mcg Inhalation Aerosol 10.6 gm] 2 puff IH BID #1 inhaler 10/04/20 Nicotine [Nicoderm 7 mg/24 Hr Transdermal Patch] 1 patch TD DAILY #30 patch.[email or web address] 10/04/20 Prednisone [Deltasone 20 mg Tablet] 20 mg PO ASDIR PRN #20 tablet 10/04/20 Salmeterol Xinafoate [Serevent Diskus 50 Mcg/Dose 28 Dose/Diskus] 50 mcg IH Q12 #1 each 10/04/20 History of Present Illiness History of Present Illness: Per H&P by Dr. Hilliard: DANIEL ONEILL is a 35 year old male with a history of asthma who says he still smokes a few cigarettes a day who uses pretty much just a ProAir inhaler at home for his asthma, and occasionally has Flovent but does not use it on any sort of regular basis, who presents with 2 days of w orsening shortness of breath. He ran out of his inhaler a couple of days ago. His significant other says that this happens to him every time he runs out of his inhaler, and he will get short of breath and then usually a couple of days after he runs out he winds up coming to the emergency room. He has a doctor but does not always follow-up like he should. His labs and chest x-ray were unremarkable. His lungs did appear hyperinflated but there were no sign of any opacities. His oxygenation on room air was in the upper 80s and after he got some Solu-Medrol and a breathing treatment and a couple liters of oxygen he improved to the low 90s. Hospital Course Hospital Course: The patient was admitted overnight for asthma exacerbation and treated with standard protocol of supplemental oxygen, scheduled and as needed nebulizer treatments, and steroid therapy. Patient symptoms rapidly improved and he is now asymptomatic, maintaining oxygenation while ambulating on room air (completed a 6-minute walking test), with clear lung sounds, and adamant about discharge to home. He is discharged home with prescriptions for a Prednisone taper, Flovent, Se revent, and albuterol HFA for rescue inhaler. He is also advised to discontinue smoking and is provided a prescription for NicoDerm patches. He is instructed to avoid respiratory triggers. He is encouraged to return to the emergency department, immediately, for any concerning symptoms. Physical Exam Vital Signs: Temp Pulse Resp BP Pulse Ox 98.1 F 95 16 117/88 H 92 10/04/20 12:01 10/04/20 12:01 10/04/20 12:01 10/04/20 11:09 10/04/20 12:01 Intake & Output 10/03/20 10/04/20 10/05/20 06:59 06:59 06:59 Intake Total 460 480 Balance 460 480 Weight 70.3 kg General appearance: PRESENT: no acute distress, cooperative, well-developed, well-nourished Head exam: PRESENT: atraumatic, normocephalic Eye exam: PRESENT: conjunctiva pink, EOMI, PERRLA. ABSENT: scleral icterus Mouth exam: PRESENT: moist, tongue midline Teeth exam: PRESENT: dental caries, poor dentation Respiratory exam: PRESENT: clear to auscultation brandy, symmetrical, unlabored, other - room air. ABSENT: rales, rhonchi, wheezes Cardiovascular exam: PRESENT: RRR. ABSENT: diastolic murmur, rubs, systolic murmur Vascular exam: PRESENT: normal capillary refill Extremities exam: PRESENT: full ROM. ABSENT: calf tenderness, clubbing, pedal edema Musculoskeletal exam: PRESENT: ambulatory Neurological exam: PRESENT: alert, awake, oriented to person, oriented to place, oriented to time, oriented to situation, CN II-XII grossly intact. ABSENT: motor sensory deficit Psychiatric exam: PRESENT: appropriate affect, normal mood. ABSENT: homicidal ideation, suicidal ideation Skin exam: PRESENT: dry, intact, warm. ABSENT: cyanosis, rash Results Laboratory Results: WBC 5.2 10^3/uL (4.0-10.5) 10/03/20 19:25 RBC 4.13 10^6/uL (4.35-5.55) L 10/03/20 19:25 Hgb 15.0 g/dL (13.5-17.0) 10/03/20 19:25 Hct 43.7 % (37.9-51.0) 10/03/20 19:25 MCV 106 fl (80-97) H 10/03/20 19:25 MCH 36.3 pg (27.0-33.4) H 10/03/20 19:25 MCHC 34.3 g/dL (32.0-36.0) 10/03/20 19: RDW 14.0 % (11.5-14.0) 10/03/20 19:25 Plt Count 379 10^3/uL (150-450) 10/03/20 19:25 Lymph % (Auto) 29.3 % (13-45) 10/03/20 19:25 Parmer % (Auto) 9.9 % (3-13) 10/03/20 19: Eos % (Auto) 6.9 % (0-6) H 10/03/20 19:25 Baso % (Auto) 0.3 % (0-2) 10/03/20 19:25 Absolute Neuts (auto) 2.8 10^3/uL (1.7-8.2) 10/03/20 19:25 Absolute Lymphs (auto) 1.5 10^3/uL (0.5-4.7) 10/03/20 19:25 Absolute Monos (auto) 0.5 10^3/uL (0.1-1.4) 10/03/20 19:25 Absolute Eos (auto) 0.4 10^3/uL (0.0-0.6) 10/03/20 19:25 Absolute Basos (auto) 0.0 10^3/uL (0.0-0.2) 10/03/20 19:25 Seg Neutrophils % 53.6 % (42-78) 10/03/20 19:25 Sodium 139.7 mmol/L (137-145) 10/03/20 19:25 Potassium 4.6 mmol/L (3.6-5.0) 10/03/20 19:25 Chloride 104 mmol/L (98-107) 10/03/20 19:25 Carbon Dioxide 27 mmol/L (22-30) 10/03/20 19:25 Anion Gap 9 (5-19) 10/03/20 19:25 BUN 7 mg/dL (7-20) 10/03/20 19:25 Creatinine 0.63 mg/dL (0.52-1.25) 10/03/20 19:25 Est GFR ( Amer) > 60 (>60) 10/03/20 19:25 Est GFR (MDRD) Non-Af > 60 (>60) 10/03/20 19:25 Glucose 85 mg/dL (75-110) 10/03/20 19:25 Calcium 9.4 mg/dL (8.4-10.2) 10/03/20 19:25 Total Bilirubin 1.0 mg/dL (0.2-1.3) 10/03/20 19:25 Direct Bilirubin 0.5 mg/dL (0.0-0.4) H 10/03/20 19:25 Neonat Total Bilirubin Not Reportable 10/03/20 19:25 Neonat Direct Bilirubin Not Reportable 10/03/20 19:25 Neonat Indirect Bili Not Reportable 10/03/20 19:25 AST 43 U/L (17-59) 10/03/20 19:25 ALT 20 U/L (<50) 10/03/20 19:25 Alkaline Phosphatase 44 U/L (38-126) 10/03/20 19:25 Total Protein 7.8 g/dL (6.3-8.2) 10/03/20 19:25 Albumin 4.3 g/dL (3.5-5.0) 10/03/20 19:25 Influenza A (RT-PCR) NEGATIVE (NEGATIVE) 10/04/20 01:38 Influenza B (RT-PCR) NEGATIVE (NEGATIVE) 10/04/20 01:38 RSV (RT-PCR) NEGATIVE (NEGATIVE) 10/04/20 01:38 SARS-CoV-2 Rap RNA(RT-PCR) NEGATIVE (NEGATIVE) 10/04/20 01:38 Impressions: Chest X-Ray 10/03/20 19:09 IMPRESSION: There appear to be chronic lung changes. No acute cardiopulmonary findings. Plan Plan of Treatment: Patient is discharged home in stable condition. He is advised follow-up with his PCP within 1 week. Take medications as prescribed. Stop smoking. Return to the emergency department, as needed, for concerning symptoms. Time Spent: Greater than 30 Minutes Stroke Is this a Stroke Patient?: No Acute Heart Failure Is this a Heart Failure Patient?: No
== END 2020-10-04 12:41 | disposition home or self-care (01) ==
LOC: ER 18:54 → INTOOBSV 10-04 01:36 → EH 10-04 01:36 → 4W 10-04 03:00
PROVIDERS: ADMIT Family Medicine; ATTEND Registered Nurse
DX: J45.41 Moderate persistent asthma with (acute) exacerbation (principal); J96.01 Acute respiratory failure with hypoxia; Z20.822 Contact with and (suspected) exposure to COVID-19; F17.210 Nicotine dependence, cigarettes, uncomplicated; Z79.899 Other long term (current) drug therapy
CPT/HCPCS: 93005; 94640 ×2; 99281; 96372; 96375; 96365; 96366; 36415; 85025; 0241U; 80053; 71045; 93010; J2920; J2930; J3475; J3105; J7613; C9803